=== PATIENT | female | born 1955 | race African-American/Black ===

== ENCOUNTER 2022-01-20 00:45 | Inpatient (IN) | payer MEDICARE, MEDICAID ==
[~2022-01-20] VITALS: Ht 160 cm; Wt 87.3 kg
[~2022-01-20 00:45] MED LIST: ASP81CT; CLPD75T; INSASP10V; LISI5TAB14; LSNP20T
[2022-01-20] MEDS ORDERED: morphine INJ 10 MG/ML 1ML (SYR OR VIAL) IVP STA (00:52)
[2022-01-20] MEDS ORDERED: morphine INJ 10 MG/ML 1ML (SYR OR VIAL) ONE (00:54)
[2022-01-20] MEDS ORDERED: ONDANSETRON 4 MG/2 ML (SDV) Z0FRAN ONE (00:55)
[2022-01-20] MEDS ORDERED: NS IV 1000 ML 1,000 ML IV SCH (01:00)
[2022-01-20] MEDS ORDERED: ONDANSETRON 4 MG/2 ML (SDV) Z0FRAN IVP ONE (01:00)
[2022-01-20] MEDS ORDERED: RT-ALBUTEROL/IPRATROPIUM 3 ML (DUONEB) VIAL ONE ×2 (01:02→01:17)
[2022-01-20 01:06] LABS: BASOPHILS # (AUTO) 0.1 10^3/uL (0.0-0.1); BASOPHILS % (AUTO) 1 % (0-10); EOSINOPHILS # (AUTO) 0.3 10^3/uL (0.0-0.3); EOSINOPHILS % (AUTO) 2 % (0-10); HEMATOCRIT 37 % (35-52); HEMOGLOBIN 12.4 g/dL (11.5-16.0); LYMPHOCYTES # (AUTO) 5.1 10^3/uL (1.0-4.0); LYMPHOCYTES % (AUTO) 36 % (12-44); MEAN CORPUSCULAR HEMOGLOBIN 28 pg (25-34); MEAN CORPUSCULAR HGB CONC 34 g/dL (32-36); MEAN CORPUSCULAR VOLUME 84 fL (80-99); MEAN PLATELET VOLUME 11.9 fL (9.0-12.2); MONOCYTES # (AUTO) 1.2 10^3/uL (0.0-1.0); MONOCYTES % (AUTO) 9 % (0-12); NEUTROPHILS # (AUTO) 7.2 10^3/uL (1.8-7.8); NEUTROPHILS % (AUTO) 52 % (42-75); PLATELET COUNT 246 10^3/uL (130-400)
[2022-01-20 01:19] LABS: ABG BASE EXCESS -2.3 MMOL/L (-2.5-2.5); ABG OXYGEN SATURATION 96 % (94-100); ABG PCO2 46 MMHG (35-45); ABG PO2 85 MMHG (79-93); ABG TCO2 24.5 MMOL/L (21.0-31.0)
[2022-01-20 01:20] LABS: PROTHROMBIN TIME PATIENT 13.7 SEC (12.2-14.7)
[2022-01-20 01:20] LABS: ALLENS TEST POSITIVE; INSPIRED O2 50%; PATIENT TEMP 36.4; VENTILATOR NO
[2022-01-20 01:21] LABS: ABG PH 7.32 (7.37-7.43)
[2022-01-20 01:22] LABS: ALBUMIN 4.4 GM/DL (3.2-4.5)
[2022-01-20 01:23] LABS: CHLORIDE 96 MMOL/L (98-107); POTASSIUM 4.1 MMOL/L (3.6-5.0); SODIUM 129 MMOL/L (135-145)
[2022-01-20 01:24] LABS: CALCIUM 9.1 MG/DL (8.5-10.1)
[2022-01-20 01:25] LABS: GLUCOSE 176 MG/DL (70-105); TOTAL PROTEIN 8.1 GM/DL (6.4-8.2)
[2022-01-20 01:26] LABS: CARBON DIOXIDE 19 MMOL/L (21-32)
[2022-01-20 01:27] LABS: BILIRUBIN,TOTAL 0.5 MG/DL (0.1-1.0)
[2022-01-20 01:28] LABS: ALKALINE PHOSPHATASE 140 U/L (40-136)
[2022-01-20 01:29] LABS: CREATININE SERUM 1.13 MG/DL (0.60-1.30); GFR ESTIMATED 53
[2022-01-20 01:30] LABS: BUN/CREATININE RATIO 14
[2022-01-20 01:32] LABS: ALANINE AMINOTRANSFERASE 26 U/L (0-55)
[2022-01-20 01:42] LABS: BILIRUBIN,URINE NEGATIVE (NEGATIVE); CLARITY,URINE CLEAR; COLOR,URINE YELLOW; GLUCOSE, URINE (UA) NEGATIVE (NEGATIVE); KETONES,URINE NEGATIVE (NEGATIVE); LEUKOCYTE ESTERASE ,URINE NEGATIVE (NEGATIVE); NITRITE,URINE NEGATIVE (NEGATIVE); PROTEIN,URINE 1+ (NEGATIVE)
[2022-01-20 01:48] LABS: BACTERIA,URINE NEGATIVE /HPF; RBC,URINE 0-2 /HPF; SQUAMOUS EPITHELIAL CELL,UR 0-2 /HPF; WBC,URINE 0-2 /HPF
--- NOTE | 2022-01-20 02:29 | ED Respiratory ---
General Chief Complaint: Respiratory Problems Stated Complaint: COPD,BREATHING EXACERBATION Nursing Triage Note: PATIENT ARRIVED VIA EMS IN RESPIRATORY DISTRESS. CPAP ON. Source: EMS Exam Limitations: clinical condition History of Present Illness Date Seen by Provider: Jan 20, 2022 Time Seen by Provider: 00:47 Initial Comments Patient is a 66-year-old female who presents to the emergency department by ambulance chief complaint of sudden onset respiratory distress. Patient has a history of diabetes with an insulin pump. She has a history of COPD as related by the medics. Patient is having a difficult time providing a history secondary to her profound respiratory distress. She is on CPAP on arrival. She was given a DuoNeb prior to arrival. IV access had not been established. She was able to deny chest pain. HPI, review of systems, past medical family and social history unobtainable secondary to her distress. Patient was quickly changed over to anoxia mask and was actually maintaining good oxygen saturations in the upper 90s. Quite tachycardic in the 150s/160s. Blood pressure quite hypertensive with a diastolic in the 115 range. She was in so much distress that she was having a difficult time finding a comfortable position to be able to breathe. 4 mg of morphine was given for air hunger and to calm her down with a little bit of Zofran, 4 mg. No recent fevers. Patient states her allergies are in the record. Timing/Duration: just prior to arrival Severity: severe Prior Episodes/Possible Cause: occasional episodes Modifying Factors: Improves With Albuterol Nebulizer Associated Symptoms: No chest pain/soreness; cough, shortness of breath, wheezing Allergies and Home Medications Allergies Coded Allergies: Sulfa (Sulfonamide Antibiotics) (Verified Allergy, Unknown, 04/20/07) doxycycline (Verified Allergy, Unknown, 03/02/08) latex (Verified Allergy, Unknown, 04/20/07) peanut (Unverified Allergy, Unknown, 01/21/22) Uncoded Allergies: multiple antibiotics (Allergy, Mild, 11/12/09) peanut butter (Allergy, Mild, 11/12/09) Patient Home Medication List Home Medication List Reviewed: Yes Clopidogrel Bisulfate (Clopidogrel) 75 Mg Tablet, 75 MG PO 1200, (Reported) Entered as Reported by: IVONE CERVANTES on 01/20/22 1004 Last Action: Reviewed Furosemide (Furosemide) 20 Mg Tablet, 20 MG PO DAILY, (Reported) Entered as Reported by: IVONE CERVANTES on 01/22/22 112 Insulin Aspart (Novolog) 100 Unit/Ml Susp, UNITS SC PER PUMP, (Reported) Entered as Reported by: IVONE CERVANTES on 01/20/22 100 Last Action: Reviewed Lisinopril (Lisinopril) 30 Mg Tablet, 30 MG PO 1200, (Reported) Entered as Reported by: IVONE CERVANTES on 01/20/22 100 Last Action: Reviewed Metoprolol Succinate (Metoprolol Succinate) 25 Mg Tab.er.24h, 25 MG PO DAILY, (Reported) Entered as Reported by: IVONE CERVANTES on 01/22/22 112 Spironolactone (Spironolactone) 25 Mg Tablet, 25 MG PO Q48H, (Reported) Entered as Reported by: IVONE CERVANTES on 01/22/221124 Trolamine Salicylate (Aspercreme) 10 % Cream..g., 1 APPLIC TP UD PRN for PAIN-B REAKTHROUGH, (Reported) Entered as Reported by: IVONE CERVANTES on 01/20/22 100 Last Action: Reviewed Discontinued Medications Aspirin (Aspirin) 81 Mg Tablet, (Reported) Discontinued Reason: No Longer Taking Entered as Reported by: JULI GOMEZ on 03/03/08300 Last Action: Discontinued Clopidogrel (Plavix) 75 Mg Tablet, (Reported) Discontinued Reason: No Longer Taking Entered as Reported by: JULI GOMEZ on 03/03/08 030 Last Action: Discontinued Furosemide (Furosemide) 20 Mg Tablet, 20 MG PO DAILY Discontinued Reason: Duplicate Order Prescribed by: PATRICK HAUSER on 01/21/22 1145 Insulin Aspart (Novolog) 10 Unit/0.1 Ml Vial, (Reported) Discontinued Reason: No Longer Taking Entered as Reported by: BLAIR GAO on 04/20/07 1034 Last Action: Discontinued Lisinopril (Zestrtil 20 Mg) 20 Mg Tablet, (Reported) Discontinued Reason: No Longer Taking Entered as Reported by: JULI GOMEZ on 03/03/08 030 Last Action: Discontinued Metoprolol Succinate (Metoprolol Succinate) 25 Mg Tab.er.24h, 25 MG PO DAILY Discontinued Reason: Duplicate Order Prescribed by: PATRICK HAUSER on 01/21/22 1145 Spironolactone (Aldactone) 25 Mg Tablet, 25 MG PO Every other day Discontinued Reason: Duplicate Order Prescribed by: RITIKA AYALA on 01/21/22 4142 Review of Systems Review of Systems Constitutional: see HPI Respiratory: cough, short of breath Cardiovascular: no symptoms reported Gastrointestinal: no symptoms reported Genitourinary: no symptoms reported Musculoskeletal: no symptoms reported Skin: no symptoms reported Psychiatric/Neurological: Anxiety All Other Systems Reviewed Negative Unless Noted: Yes Past Fefaxrp-Rilhop-Dkpnuc Hx Past Medical History Reproductive Disorders: Yes (6 MISCARRIAGES, 4 LIVE BIRTHS) Physical Exam Vital Signs - First Documented 01/20/22 01/20/22 00:47 00:55 Temp 36.4 Pulse 154 Resp 45 B/P (MAP) 179/103 (128) Pulse Ox 100 O2 Delivery NIV CPAP FiO2 50 Capillary Refill : Height: '" Weight: lbs. oz. kg; 30.00 BMI Method: General Appearance: WD/WN, severe distress Eyes: Bilateral Eye Normal Inspection, Bilateral Eye PERRL, Bilateral Eye EOMI HEENT: PERRL/EOMI Neck: normal inspection Respiratory: respiratory distress, accessory muscle use, rales, wheezing Cardiovascular: regular rate, rhythm, tachycardia (150s) Gastrointestinal: non tender, soft Extremities: normal range of motion, non-tender, normal inspection, no pedal edema, no calf tenderness, normal capillary refill Neurologic/Psychiatric: alert, oriented x 3 Skin: normal color, warm/dry Focused Exam Lactate Level 01/20/22 01:22: Lactic Acid Level 1.06 Lactic Acid Level Laboratory Tests Test 01/20/22 01:22 Lactic Acid Level 1.06 MMOL/L (0.50-2.00) Progress/Results/Core Measures Suspected Sepsis SIRS Temperature: Pulse: 154 Respiratory Rate: 45 Laboratory Tests 01/20/22 00:59: White Blood Count 14.0H Blood Pressure 179 /103 Mean: 128 01/20/22 01:22: Lactic Acid Level 1.06 Laboratory Tests 01/20/22 00:59: Creatinine 1.13, INR Comment 1.0, Platelet Count 246, Total Bilirubin 0.5 Results/Orders Lab Results Laboratory Tests Test 01/20/22 00:59 01/20/22 01:08 01/20/22 01:12 01/20/22 01:22 Range/Units White Blood Count 14.0 H 4.3-11.0 10^3/uL Red Blood Count 4.38 3.80-5.11 10^6/uL Hemoglobin 12.4 11.5-16.0 g/dL Hematocrit 37 35-52 % Mean Corpuscular Volume 84 80-99 fL Mean Corpuscular Hemoglobin 28 25-34 pg Mean Corpuscular Hemoglobin Concent 34 32-36 g/dL Red Cell Distribution Width 13.8 10.0-14.5 % Platelet Count 246 130-400 10^3/uL Mean Platelet Volume 11.9 9.0-12.2 fL Immature Granulocyte % (Auto) 0 % Neutrophils (%) (Auto) 52 42-75 % Lymphocytes (%) (Auto) 36 12-44 % Monocytes (%) (Auto) 9 0-12 % Eosinophils (%) (Auto) 2 0-10 % Basophils (%) (Auto) 1 0-10 % Neutrophils # (Auto) 7.2 1.8-7.8 10^3/uL Lymphocytes # (Auto) 5.1 H 1.0-4.0 10^3/uL Monocytes # (Auto) 1.2 H 0.0-1.0 10^3/uL Eosinophils # (Auto) 0.3 0.0-0.3 10^3/uL Basophils # (Auto) 0.1 0.0-0.1 10^3/uL Immature Granulocyte # (Auto) 0.0 0.0-0.1 10^3/uL Prothrombin Time 13.7 12.2-14.7 SEC INR Comment 1.0 0.8-1.4 Activated Partial Thromboplast Time 37 H 24-35 SEC D-Dimer 1.14 H 0.00-0.49 UG/ML Sodium Level 129 L 135-145 MMOL/L Potassium Level 4.1 3.6-5.0 MMOL/L Chloride Level 96 L 98-107 MMOL/L Carbon Dioxide Level 19 L 21-32 MMOL/L Anion Gap 14 5-14 MMOL/L Blood Urea Nitrogen 16 7-18 MG/DL Creatinine 1.13 0.60-1.30 MG/DL Estimat Glomerular Filtration Rate 53 BUN/Creatinine Ratio 14 Glucose Level 176 H 70-105 MG/DL Calcium Level 9.1 8.5-10.1 MG/DL Corrected Calcium 8.8 8.5-10.1 MG/DL Total Bilirubin 0.5 0.1-1.0 MG/DL Aspartate Amino Transf (AST/SGOT) 28 5-34 U/L Alanine Aminotransferase (ALT/SGPT) 26 0-55 U/L Alkaline Phosphatase 140 H 40-136 U/L Troponin I < 0.028 <0.028 NG/ML B-Type Natriuretic Peptide 463.1 H <100.0 PG/ML Total Protein 8.1 6.4-8.2 GM/DL Albumin 4.4 3.2-4.5 GM/DL Influenza Type A (RT-PCR) Not Detected Not Detecte Influenza Type B (RT-PCR) Not Detected Not Detecte SARS-CoV-2 RNA (RT-PCR) Not Detected Not Detecte Blood Gas Puncture Site LEFT RADIAL Blood Gas Patient Temperature 36.4 Arterial Blood pH 7.32 *L 7.37-7.43 Arterial Blood Partial Pressure CO2 46 H 35-45 MMHG Arterial Blood Partial Pressure O2 85 79-93 MMHG Arterial Blood HCO3 23 23-27 MMOL/L Arterial Blood Total CO2 24.5 21.0-31.0 MMOL/L Arterial Blood Oxygen Saturation 96 94-100 % Arterial Blood Base Excess -2.3 -2.5-2.5 MMOL/L Niraj Test POSITIVE Blood Gas Ventilator Setting NO Blood Gas Inspired Oxygen 50% Lactic Acid Level 1.06 0.50-2.00 MMOL/L Test 01/20/22 01:34 Range/Units Urine Color YELLOW Urine Clarity CLEAR Urine pH 7.0 5-9 Urine Specific [place] 1.010 L 1.016-1.022 Urine Protein 1+ H NEGATIVE Urine Glucose (UA) NEGATIVE NEGATIVE Urine Ketones NEGATIVE NEGATIVE Urine Nitrite NEGATIVE NEGATIVE Urine Bilirubin NEGATIVE NEGATIVE Urine Urobilinogen 0.2 < = 1.0 MG/DL Urine Leukocyte Esterase NEGATIVE NEGATIVE Urine RBC (Auto) TRACE-I H NEGATIVE Urine RBC 0-2 /HPF Urine WBC 0-2 /HPF Urine Squamous Epithelial Cells 0-2 /HPF Urine Crystals NONE /LPF Urine Bacteria NEGATIVE /HPF Urine Casts NONE /LPF Urine Mucus NEGATIVE /LPF Urine Culture Indicated CULTURE PENDING Micro Results Microbiology 01/20/22 Urine Culture - Final, Complete NO GROWTH 01/20/22 Blood Culture - Preliminary, Resulted No growth 01/20/22 Blood Culture - Preliminary, Resulted No growth My Orders Orders - MARINA RENTERIA MD Morphine Injection (Morphine Injection (01/20/22 00:52) Ondansetron Injection (Zofran Injectio (01/20/22 01:00) Ns Iv 1000 Ml (Sodium Chloride 0.9%) (01/20/22 01:00) Cbc With Automated Diff (01/20/22 00:53) Comprehensive Metabolic Panel (01/20/22 00:53) Blood Culture (01/20/22 00:53) Urinalysis (01/20/22 00:53) Urine Culture (01/20/22 00:53) Protime With Inr (01/20/22 00:53) Partial Thromboplastin Time (01/20/22 00:53) Chest 1 View, Ap/Pa Only (01/20/22 00:53) Ed Iv/Invasive Line Start (01/20/22 00:53) Ed Iv/Invasive Line Start (01/20/22 00:53) Troponin I Lindsay (01/20/22 00:53) Vital Signs Adult Sepsis Patie Q15M (01/20/22 00:53) O2 (01/20/22 00:53) Lactic Acid Analyzer (01/20/22 00:53) Influenza A And B By Pcr (01/20/22 00:53) Covid 19 Inhouse Test (01/20/22 00:53) Arterial Blood Gas (01/20/22 00:53) Morphine Injection (Morphine Injection (01/20/22 00:54) Ondansetron Injection (Zofran Injectio (01/20/22 00:55) Albuterol/Ipra Inhalation Soln (Duoneb I (01/20/22 01:02) Albuterol/Ipra Inhalation Soln (Duoneb I (01/20/22 01:17) Bnp [place] (01/20/22 01:49) Fibrin Degradation Products (01/20/22 01:49) Furosemide Injection (Lasix Injection) (01/20/22 02:45) Arterial Blood Draw - Obtain (01/20/22 01:12) Medications Given in ED Vital Signs/I&O 01/20/22 01/20/22 01/20/22 00:47 00:55 00:55 Temp 36.4 Pulse 154 Resp 45 B/P (MAP) 179/103 (128) Pulse Ox 100 100 O2 Delivery NIV CPAP NIV CPAP NIV Bilevel FiO2 50 Capillary Refill : Blood Pressure Mean: 128 Progress Note : Time: 02:12 Progress Note Multiple reassessments over the last hour and a half revealed the patient to be steadily improving. She was given 3 uoga-[id number]-ywrl albuterol treatments. She is no longer wheezing. Respirations are much improved, respiratory rate in the mid 20s. Oxygen saturations on BiPAP currently 100%. Heart rate down into the low 120s upper 115 range. She is alert and able to tell me that her symptoms just hit her all at once this evening. She states when she would lay down she would hear "a rattling", do a breathing treatment and then lay back down and experience rattling again. She states that it just suddenly hit her this evening where she needed to call the ambulance. Patient tells me over the last 3 months she has had a couple rounds of antibiotics for bronchitis and pneumonia. She states she just cannot quite kick the cough and congestion. No history of blood clots. She is on Plavix for "mini strokes" in the past. No history of heart disease or stent placement. She does not recall ever having had a stress test in the past. She does still smoke "some" ECG Initial ECG Impression Date: Jan 20, 2022 Initial ECG Impression Time: 01:33 Initial ECG Rhythm: S.Tach Initial ECG Intervals OR interval 150 QRS 75 QTC 501 Comment No ectopy, no ST segment depression or elevation noted Diagnostic Imaging Diagonstic Imaging: Xray Plain Films/CT/US/NM/MRI: chest Comments Chest x-ray interpreted by me, pulmonary edema no obvious infiltrate Critical Care Note Critical Care Start Time: 00:47 Stop Time: 02:36 Total Time (minutes) 1 hour critical care time in the evaluation and management of this patient in respiratory distress. Time includes initial evaluation and management, respiratory support placed on BiPAP, medications for anxiety, review of the medical record. Reviewed and interpretation of labs, imaging and EKG. Discussion with admitting provider. Departure Communication (Admissions) Time/Spoke to Admitting Phy: 02:[address] Jules - accepts patient for admission Impression Primary Impression: Flash pulmonary edema Additional Impressions: COPD (chronic obstructive pulmonary disease) Qualified Codes: J44.1 - Chronic obstructive pulmonary disease with (acute) exacerbation Hypertension Qualified Codes: I10 - Essential (primary) hypertension Disposition: ADMITTED INPATIENT Condition: Stable Admissions Decision to Admit Reason: Admit from ER (General) Decision to Admit/Date: Jan 20, 2022 Time/Decision to Admit Time: 02:36 Departure-Patient Inst. Referrals: CATRACHITO CAGLE DO (PCP/Family) Primary Care Physician MRAINA RENTERIA MD Jan 20, 2022 02:29
[2022-01-20] MEDS ORDERED: FUROSEMIDE 40 MG/4 ML INJ (LASIX) IVP ONE (02:45)
--- NOTE | 2022-01-20 05:09 | Tele-ICU Progress Note ---
Progress Note 66 y/o with DM2 on Insulin pump, HTN , COPD came in with SOB, placed on CPAP and Duo nebs given. CXR with chf patten and COPD changes. Labs, imaging and medications reviewed. 1. Mild Ac exacerbation of COPD with acute hypoxic resp gailure, weaning O2, 2. CHF / flash pulm edema, Troponin negative, continue to trend, 3. Uncontrolled HTN. Lasix , DUO nebs given. Diuresed 1 L and oxygenation improved. Pt resting well, Hemodynamically stable. D/W the bedside nurse. No request for any orders at this time. Interventions Minor- Focused Exam Lactate Level 01/20/22 01:22: Lactic Acid Level 1.06 Height, Weight, BMI Height: '" Weight: lbs. oz. kg; 33.20 BMI Method: Lactic Acid Level Laboratory Tests Test 01/20/22 01:22 Lactic Acid Level 1.06 MMOL/L (0.50-2.00) DEANN MURPHY MD Jan 20, 2022 05:09
--- NOTE | 2022-01-20 05:44 | Diagnostic Imaging Report ---
INDICATION: Respiratory distress. COMPARISON: 08/07/2009 FINDINGS: Single frontal radiographic view of the chest was obtained and demonstrates borderline enlargement of the cardiac silhouette. There is also pulmonary vascular congestion and diffuse prominence of pulmonary interstitium. Uvaldo B-lines are noted. There is no large effusion or pneumothorax. Osseous structures show no gross acute abnormalities. IMPRESSION: 1. New diffuse bilateral interstitial prominence, which is favored to represent pulmonary edema. Viral or atypical infiltrate is also consideration, but felt to be less likely. Dictated by: Dictated on workstation # [id number]
[2022-01-20] MEDS ORDERED: RT-ALBUTEROL/IPRATROPIUM 3 ML (DUONEB) VIAL INH PRN (05:45)
[2022-01-20 05:59] LABS: BASOPHILS % (AUTO) 0 % (0-10); EOSINOPHILS % (AUTO) 0 % (0-10); HEMATOCRIT 32 % (35-52); HEMOGLOBIN 10.7 g/dL (11.5-16.0); LYMPHOCYTES # (AUTO) 0.9 10^3/uL (1.0-4.0); LYMPHOCYTES % (AUTO) 6 % (12-44); MEAN CORPUSCULAR HEMOGLOBIN 29 pg (25-34); MEAN CORPUSCULAR HGB CONC 34 g/dL (32-36); MEAN CORPUSCULAR VOLUME 84 fL (80-99); MEAN PLATELET VOLUME 12.9 fL (9.0-12.2); MONOCYTES # (AUTO) 0.7 10^3/uL (0.0-1.0); MONOCYTES % (AUTO) 5 % (0-12); NEUTROPHILS # (AUTO) 13.1 10^3/uL (1.8-7.8); NEUTROPHILS % (AUTO) 89 % (42-75); PLATELET COUNT 193 10^3/uL (130-400); WHITE BLOOD COUNT 14.8 10^3/uL (4.3-11.0)
[2022-01-20] MEDS: inSUlin ASPART (NovoLOG) 1 UNIT/0.01 ML (CHARGE PER UNIT) SC SCH ×5 (05:59→21:19)
[2022-01-20] MEDS: CATHETER FLUSH 10 ML SYR IVP SCH ×3 (06:00→23:47)
[2022-01-20 06:25] LABS: CALCIUM 8.2 MG/DL (8.5-10.1); POTASSIUM 3.7 MMOL/L (3.6-5.0)
[2022-01-20 06:33] LABS: BAND NEUTROPHILS 1 %; LYMPHOCYTES % (MANUAL) 9 %; MONOCYTES % (MANUAL) 5 %; NEUTROPHILS % (MANUAL) 85 %; RBC MORPH NORMAL
[2022-01-20] MEDS: RT-ALBUTEROL/IPRATROPIUM 3 ML (DUONEB) VIAL INH SCH ×5 (07:13→22:23)
[2022-01-20] MEDS ORDERED: FUROSEMIDE 40 MG/4 ML INJ (LASIX) IV NR (08:00)
--- NOTE | 2022-01-20 08:36 | Consultation-Cardiology ---
HPI-Cardiology Cardiology Consultation: Date of Consultation 01/20/22 Time Seen by a Provider: 08:30 Date of Admission 01-19-22 Attending Physician Therese Jules MD Admitting Physician Bronwyn Bailey DO Consulting Physician Elia Bravo MD HPI: Chief Complaint: CHF Ms. Velázquez is a 66 yr old female admitted to ICU 7 with increasing SOB over the last few days which became increasingly worse overnight. She reports symptoms of orthopnea. She reports ankle swelling of new onset. She denies any c/o CP or palpitations. No c/o syncope or near syncope. She reports she follow s with Dr. Fallon of cardiology services at [facility] in [place], [place]. She denies any n/v/d. No c/o fever or chills. She reports recent URI for which she has been following with [facility]. She continues to smoke cigs 1/2 PPD. She reports her SOB is improved. Review of Systems-Cardiology Review of Systems Constitutional: No chills, No fever, No malaise Eyes: No vision change Ears/Nose/Throat: No epistaxis, No recent hearing loss Respiratory: As described under HPI Cardiovascular: As described under HPI Gastrointestinal: No constipation, No diarrhea, No nausea, No vomiting Genitourinary: No dysuria Musculoskeletal: no symptoms reported Skin: No rash on exposed areas, No ulcerations on exposed areas Psychiatric/Neurological: anxiety; No seizure, No focal weakness, No syncope Hematologic: No bleeding abnormalities All Other Systems Reviewed Negative Unless Noted: Yes VRP-Jguqfj-Olpxes Hx Patient Social History Smoking Status: Current Everyday Smoker Have you traveled recently?: No Alcohol Use?: No Pt feels they are or have been: No Tobacco type used: Cigarettes Past Medical History PMH As described under Assessment. Family Medical History Family Medical History: She reports her mother had h/o CAD with [place]. Allergies and Home Medications Allergies Coded Allergies: Sulfa (Sulfonamide Antibiotics) (Verified Allergy, Unknown, 04/20/07) doxycycline (Verified Allergy, Unknown, 03/02/08) latex (Verified Allergy, Unknown, 04/20/07) Uncoded Allergies: multiple antibiotics (Allergy, Mild, 11/12/09) peanut butter (Allergy, Mild, 11/12/09) Patient Home Medication List Clopidogrel Bisulfate (Clopidogrel) 75 Mg Tablet, 75 MG PO 1200, (Reported) Entered as Reported by: IVONE CERVANTES on 01/20/22 100 Last Action: Reviewed Insulin Aspart (Novolog) 100 Unit/Ml Susp, UNITS SC PER PUMP, (Reported) Entered as Reported by: IVONE CERVANTES on 01/20/221003 Last Action: Reviewed Lisinopril (Lisinopril) 30 Mg Tablet, 30 MG PO 1200, (Reported) Entered as Reported by: IVONE CERVANTES on 01/20/221003 Last Action: Reviewed Trolamine Salicylate (Aspercreme) 10 % Cream..g., 1 APPLIC TP UD PRN for PAIN- BREAKTHROUGH, (Reported) Entered as Reported by: IVONE CERVANTES on 01/20/221003 Last Action: Reviewed Discontinued Medications Aspirin (Aspirin) 81 Mg Tablet, (Reported) Discontinued Reason: No Longer Taking Entered as Reported by: JULI GOMEZ on 03/03/08300 Last Action: Discontinued Clopidogrel (Plavix) 75 Mg Tablet, (Reported) Discontinued Reason: No Longer Taking Entered as Reported by: JULI GOMEZ on 03/03/08300 Last Action: Discontinued Insulin Aspart (Novolog) 10 Unit/0.1 Ml Vial, (Reported) Discontinued Reason: No Longer Taking Entered as Reported by: BLAIR GAO on 04/20/07 1034 Last Action: Discontinued Lisinopril (Zestrtil 20 Mg) 20 Mg Tablet, (Reported) Discontinued Reason: No Longer Taking Entered as Reported by: JULI GOMEZ on 03/03/08300 Last Action: Discontinued Physical Exam-Cardiology Physical Exam Vital Signs/I&O 01/20/22 01/20/22 01/20/22 01/20/22 03:09 03:25 03:30 03:44 Temp 36.3 Pulse 118 123 125 126 Resp 29 19 28 B/P (MAP) 162/80 160/96 Pulse Ox 97 100 100 O2 Delivery NIV Bilevel NIV Bilevel O2 Flow Rate 50.00 40.00 40.00 01/20/22 01/20/22 01/20/22 01/20/22 03:45 04:00 04:12 04:15 Temp 36.9 Pulse 120 112 122 Resp 16 18 16 B/P (MAP) 160/96 130/86 141/69 Pulse Ox 100 100 100 99 O2 Delivery NIV Bilevel Vapotherm Vapotherm Vapotherm O2 Flow Rate 40.00 15.00 15.00 15.00 35.00 35.00 FiO2 35 01/20/22 01/20/22 01/20/22 01/20/22 04:45 05:15 05:25 06:00 Temp 36.4 Pulse 125 120 154 111 Resp 15 19 28 B/P (MAP) 147/84 138/70 122/67 Pulse Ox 99 99 100 97 O2 Delivery Vapotherm Vapotherm Vapotherm O2 Flow Rate 15.00 15.00 15.00 35.00 35.00 35.00 FiO2 50 01/20/22 01/20/22 01/20/22 01/20/22 07:00 07:13 07:56 08:00 Temp 36.8 Pulse 122 116 Resp 18 B/P (MAP) 135/74 Pulse Ox 99 99 O2 Delivery Vapotherm High Flow N/C O2 Flow Rate 15.00 2.00 35.00 01/20/22 01/20/22 01/20/22 01/20/22 08:00 08:48 09:00 10:00 Pulse 115 122 113 Resp 19 15 17 B/P (MAP) 132/66 151/82 155/66 Pulse Ox 98 94 99 99 O2 Delivery Vapotherm Nasal Cannula Vapotherm Vapotherm O2 Flow Rate 15.00 2.00 15.00 15.00 35.00 35.00 35.00 01/20/22 01/20/22 01/20/22 01/20/22 10:26 11:00 12:00 12:00 Temp 36.7 Pulse 108 108 Resp 10 11 B/P (MAP) 135/74 124/99 Pulse Ox 99 99 99 O2 Delivery High Flow N/C Vapotherm Vapotherm O2 Flow Rate 2.00 15.00 15.00 35.00 35.00 01/20/22 01/20/22 01/20/22 01/20/22 12:18 12:52 13:00 13:52 Pulse 116 112 Resp 15 B/P (MAP) 115/52 Pulse Ox 94 98 99 O2 Delivery Nasal Cannula Vapotherm High Flow N/C O2 Flow Rate 2.00 15.00 2.00 35.00 Capillary Refill : Constitutional: AAO x 3, well-developed, well-nourished HEENT: PERRL, hearing is well preserved, oral hygience is good Neck: No carotid bruit; carotid pulses are 2 + bilaterally Respiratory: No accessory muscle use, No respiratory distress; chest expansion is symmetric, chest is bilaterally symmetric, other (coarse breath sounds bilat with exp wheezes) Cardiovascular: tachycardia, systolic murmur Gastrointestinal: No tender; soft, round, audible bowel sounds Extremities: other (mild bilat LE swelling) Neurologic/Psychiatric: grossly intact (moves all extremities) Skin: No rash on exposed areas, No ulcerations on exposed areas Data Review Labs Laboratory Tests 01/20/22 00:59: White Blood Count 14.0H, Red Blood Count 4.38, Hemoglobin 12.4, Hematocrit 37, Mean Corpuscular Volume 84, Mean Corpuscular Hemoglobin 28, Mean Corpuscular Hemoglobin Concent 34, Red Cell Distribution Width 13.8, Platelet Count 246, Mean Platelet Volume 11.9, Immature Granulocyte % (Auto) 0, Neutrophils (%) (Auto) 52, Lymphocytes (%) (Auto) 36, Monocytes (%) (Auto) 9, Eosinophils (%) (Auto) 2, Basophils (%) (Auto) 1, Neutrophils # (Auto) 7.2, Lymphocytes # (Auto) 5.1H, Monocytes # (Auto) 1.2H, Eosinophils # (Auto) 0.3, Basophils # (Auto) 0.1, Immature Granulocyte # (Auto) 0.0, Prothrombin Time 13.7, INR Comment 1.0, Activated Partial Thromboplast Time 37H, D-Dimer 1.14H, Sodium Level 129L, Potassium Level 4.1, Chloride Level 96L, Carbon Dioxide Level 19L, Anion Gap 14, Blood Urea Nitrogen 16, Creatinine 1.13, Estimat Glomerular Filtration Rate 53, BUN/Creatinine Ratio 14, Glucose Level 176H, Calcium Level 9.1, Corrected Calcium 8.8, Total Bilirubin 0.5, Aspartate Amino Transf (AST/SGOT) 28, Alanine Aminotransferase (ALT/SGPT) 26, Alkaline Phosphatase 140H, Troponin I < 0.028, B-Type Natriuretic Peptide 463.1H, Total Protein 8.1, Albumin 4.4 01/20/22 01:08: Influenza Type A (RT-PCR) Not Detected, Influenza Type B (RT-PCR) Not Detected, SARS-CoV-2 RNA (RT-PCR) Not Detected 01/20/22 01:12: Blood Gas Puncture Site LEFT RADIAL, Blood Gas Patient Temperature 36.4, Arterial Blood pH 7.32*L, Arterial Blood Partial Pressure CO2 46H, Arterial Blood Partial Pressure O2 85, Arterial Blood HCO3 23, Arterial Blood Total CO2 24.5, Arterial Blood Oxygen Saturation 96, Arterial Blood Base Excess -2.3, Niraj Test POSITIVE, Blood Gas Ventilator Setting NO, Blood Gas Inspired Oxygen 50% 01/20/22 01:22: Lactic Acid Level 1.06 01/20/22 01:34: Urine Color YELLOW, Urine Clarity CLEAR, Urine pH 7.0, Urine Specific [place] 1.010L, Urine Protein 1+H, Urine Glucose (UA) NEGATIVE, Urine Ketones NEGATIVE, Urine Nitrite NEGATIVE, Urine Bilirubin NEGATIVE, Urine Urobilinogen 0.2, Urine Leukocyte Esterase NEGATIVE, Urine RBC (Auto) TRACE-IH, Urine RBC 0-2, Urine WBC 0-2, Urine Squamous Epithelial Cells 0-2, Urine Crystals NONE, Urine Bacteria NEGATIVE, Urine Casts NONE, Urine Mucus NEGATIVE, Urine Culture Indicated C ULTURE PENDING 01/20/22 05:14: Thyroid Stimulating Hormone (TSH) 1.84 01/20/22 05:50: White Blood Count 14.8H, Red Blood Count 3.76L, Hemoglobin 10.7L, Hematocrit 32L , Mean Corpuscular Volume 84, Mean Corpuscular Hemoglobin 29, Mean Corpuscular Hemoglobin Concent 34, Red Cell Distribution Width 13.6, Platelet Count 193, Mean Platelet Volume 12.9H, Immature Granulocyte % (Auto) 1, Neutrophils (%) (Auto) 89H, Lymphocytes (%) (Auto) 6L, Monocytes (%) (Auto) 5, Eosinophils (%) (Auto) 0, Basophils (%) (Auto) 0, Neutrophils # (Auto) 13.1H, Lymphocytes # (Auto) 0.9L, Monocytes # (Auto) 0.7, Eosinophils # (Auto) 0.0, Basophils # (Auto) 0.0, Immature Granulocyte # (Auto) 0.1, Neutrophils % (Manual) 85, Lymphocytes % (Manual) 9, Monocytes % (Manual) 5, Band Neutrophils 1, Blood Morphology Comment NORMAL, Sodium Level 131L, Potassium Level 3.7, Chloride Level 95L, Carbon Dioxide Level 18L, Anion Gap 18H, Blood Urea Nitrogen 16, Creatinine 1.00, Estimat Glomerular Filtration Rate 61, BUN/Creatinine Ratio 16, Glucose Level 224H, Calcium Level 8.2L 01/20/22 11:06: Glucometer 223H 01/20/22 12:43: Glucometer 227H Microbiology 01/20/22 Blood Culture - Preliminary, Resulted No growth Radiology NAME: RAUDEL VELÁZQUEZ MED REC#: [id number] PT STATUS: ADM IN : 1955 PHYSICIAN: MARINA RENTERIA MD ADMIT DATE: 01/20/22/ICU Draft Date of Exam:01/20/22 CHEST 1 VIEW, AP/PA ONLY INDICATION: Respiratory distress. COMPARISON: 08/07/2009 FINDINGS: Single frontal radiographic view of the chest was obtained and demonstrates borderline enlargement of the cardiac silhouette. There is also pulmonary vascular congestion and diffuse prominence of pulmonary interstitium. Uvaldo B-lines are noted. There is no large effusion or pneumothorax. Osseous structures show no gross acute abnormalities. IMPRESSION: 1. New diffuse bilateral interstitial prominence, which is favored to represent pulmonary edema. Viral or atypical infiltrate is also consideration, but felt to be less likely. Dictated on workstation # [id number] Dict: 01/20/22 0540 Trans: 01/20/22 0544 [id number] Interpreted by: DEMETRIUS HUIZAR MD Electronically signed by: ECG Impression ECG Initial ECG Rhythm: S.Tach A/P-Cardiology Assessment/Admission Diagnosis CHF - duration unknown Sinus tachycardia - undetermined etiology Hyponatremia - unclear etiology - possibly secondary to CHF Leukocytosis - undetermined etiology - medical services managing Reports h/o murmur - details unknown H/O TIA vs CVA per pt report - details unknown H/O left sided carotid dz per pt report - followed by [facility] HTN HLD - intolerant to statins per pt report IDDM - insulin pump Discussion and Recomendations CHF of undetermined length of time - Echocardiogram today - Diuretics Request records from [facility] Continue home medications Sinus tachycardia of unclear etiology - start low dose BB Reports h/o carotid dz with CVA vs TIA - restart home dose of Plavix Monitor labs closely - replace electrolytes as indicated We would like to thank medical services for this consult VIRGINIA MUNOZ Jan 20, 2022 08:36
[2022-01-20] MEDS: CLOPIDOGREL 75 MG (PLAVIX) TABLET PO SCH (08:47)
[2022-01-20] MEDS: lisINopril 20 MG (PRINIVIL) TABLET PO SCH (08:47)
[2022-01-20] MEDS: ASPIRIN E.C. 81 MG (ECOTRIN) TAB PO SCH (08:47)
[2022-01-20] MEDS ORDERED: INSU100V16 SC (10:04)
[2022-01-20] MEDS ORDERED: TROL85CR37 TP (10:04)
[2022-01-20] MEDS ORDERED: LISI30TA5 PO (10:04)
[2022-01-20] MEDS ORDERED: CLOP75TA28 PO (10:04)
--- NOTE | 2022-01-20 12:19 | Consultation-Cardiology ---
HPI-Cardiology Cardiology Consultation: Date of Consultation 01/20/22 Time Seen by a Provider: 09:00 Date of Admission Attending Physician Therese Jules MD Admitting Physician Bronwyn Bailey DO Consulting Physician CARLOS POZO MD, MA, FACP, FACC, FSCAI, CCDS HPI: Chief Complaint: CHF Ms. Pritchard is a 66 yr old female admitted to ICU 7 with increasing SOB over the last few days which became increasingly worse overnight. She reports symptoms of orthopnea. She reports ankle swelling of new onset. She denies any c/o CP or palpitations. No c/o syncope or near syncope. She reports she follows with Dr. Fallon of cardiology services at [facility] in [place], [place]. She denies any n/v/d. No c/o fever or chills. She reports recent URI for which she has been following with [facility]. She continues to smoke cigs 1/2 PPD. She reports her SOB is improved. Review of Systems-Cardiology Review of Systems Constitutional: No chills, No fever, No malaise Eyes: No vision change Ears/Nose/Throat: No epistaxis, No recent hearing loss Respiratory: As described under HPI Cardiovascular: As described under HPI Gastrointestinal: No constipation, No diarrhea, No nausea, No vomiting Genitourinary: No dysuria Musculoskeletal: no symptoms reported Skin: No rash on exposed areas, No ulcerations on exposed areas Psychiatric/Neurological: anxiety; No seizure, No focal weakness, No syncope Hematologic: No bleeding abnormalities All Other Systems Reviewed Negative Unless Noted: Yes [id number] Hx Patient Social History Smoking Status: Current Everyday Smoker Have you traveled recently?: No Alcohol Use?: No Pt feels they are or have been: No Tobacco type used: Cigarettes Past Medical History PMH As described under Assessment. Family Medical History Family Medical History: She reports her mother had h/o CAD with [place]. Allergies and Home Medications Allergies Coded Allergies: Sulfa (Sulfonamide Antibiotics) (Verified Allergy, Unknown, 04/20/07) doxycycline (Verified Allergy, Unknown, 03/02/08) latex (Verified Allergy, Unknown, 04/20/07) Uncoded Allergies: multiple antibiotics (Allergy, Mild, 11/12/09) peanut butter (Allergy, Mild, 11/12/09) Patient Home Medication List Home Medication List Reviewed: Yes Clopidogrel Bisulfate (Clopidogrel) 75 Mg Tablet, 75 MG PO 1200, (Reported) Entered as Reported by: IVONE CERVANTES on 01/20/221003 Last Action: Reviewed Insulin Aspart (Novolog) 100 Unit/Ml Susp, UNITS SC PER PUMP, (Reported) Entered as Reported by: IVONE CERVANTES on 01/20/221003 Last Action: Reviewed Lisinopril (Lisinopril) 30 Mg Tablet, 30 MG PO 1200, (Reported) Entered as Reported by: IVONE CERVANTES on 01/20/221003 Last Action: Reviewed Trolamine Salicylate (Aspercreme) 10 % Cream..g., 1 APPLIC TP UD PRN for PAIN- BREAKTHROUGH, (Reported) Entered as Reported by: IVONE CERVANTES on 01/20/221003 Last Action: Reviewed Discontinued Medications Aspirin (Aspirin) 81 Mg Tablet, (Reported) Discontinued Reason: No Longer Taking Entered as Reported by: JULI GOMEZ on 03/03/08300 Last Action: Discontinued Clopidogrel (Plavix) 75 Mg Tablet, (Reported) Discontinued Reason: No Longer Taking Entered as Reported by: JULI GOMEZ on 03/03/08300 Last Action: Discontinued Insulin Aspart (Novolog) 10 Unit/0.1 Ml Vial, (Reported) Discontinued Reason: No Longer Taking Entered as Reported by: BLAIR GAO on 04/20/071033 Last Action: Discontinued Lisinopril (Zestrtil 20 Mg) 20 Mg Tablet, (Reported) Discontinued Reason: No Longer Taking Entered as Reported by: JULI GOMEZ on 03/03/08300 Last Action: Discontinued Physical Exam-Cardiology Physical Exam Vital Signs/I&O 01/20/22 01/20/22 01/20/22 01/20/22 00:47 00:55 00:55 03:06 Temp 36.4 Pulse 154 127 Resp 45 36 B/P (MAP) 179/103 (128) Pulse Ox 100 100 99 O2 Delivery NIV CPAP NIV CPAP NIV Bilevel O2 Flow Rate 50.00 FiO2 50 01/20/22 01/20/22 01/20/22 01/20/22 03:09 03:25 03:30 03:44 Temp 36.3 Pulse 118 123 125 126 Resp 29 19 28 B/P (MAP) 162/80 160/96 Pulse Ox 97 100 100 O2 Delivery NIV Bilevel NIV Bilevel O2 Flow Rate 50.00 40.00 40.00 01/20/22 01/20/22 01/20/22 01/20/22 03:45 04:00 04:12 04:15 Temp 36.9 Pulse 120 112 122 Resp 16 18 16 B/P (MAP) 160/96 130/86 141/69 Pulse Ox 100 100 100 99 O2 Delivery NIV Bilevel Vapotherm Vapotherm Vapotherm O2 Flow Rate 40.00 15.00 15.00 15.00 35.00 35.00 FiO2 35 01/20/22 01/20/22 01/20/22 01/20/22 04:45 05:15 05:25 06:00 Temp 36.4 Pulse 125 120 154 111 Resp 15 19 28 B/P (MAP) 147/84 138/70 122/67 Pulse Ox 99 99 100 97 O2 Delivery Vapotherm Vapotherm Vapotherm O2 Flow Rate 15.00 15.00 15.00 35.00 35.00 35.00 FiO2 50 01/20/22 01/20/22 01/20/22 01/20/22 07:00 07:13 07:56 08:00 Temp 36.8 Pulse 122 116 Resp 18 B/P (MAP) 135/74 Pulse Ox 99 99 O2 Delivery Vapotherm High Flow N/C O2 Flow Rate 15.00 2.00 35.00 01/20/22 01/20/22 01/20/22 01/20/22 08:00 09:00 10:00 10:26 Pulse 115 122 113 Resp 19 15 17 B/P (MAP) 132/66 151/82 155/66 Pulse Ox 98 99 99 99 O2 Delivery Vapotherm Vapotherm Vapotherm High Flow N/C O2 Flow Rate 15.00 15.00 15.00 2.00 35.00 35.00 35.00 01/20/22 01/20/22 11:00 12:00 Pulse 108 108 Resp 10 11 B/P (MAP) 135/74 124/99 Pulse Ox 99 99 O2 Delivery Vapotherm Vapotherm O2 Flow Rate 15.00 15.00 35.00 35.00 Capillary Refill : Constitutional: AAO x 3, well-developed, well-nourished HEENT: PERRL, hearing is well preserved, oral hygience is good Neck: No carotid bruit; carotid pulses are 2 + bilaterally Respiratory: No accessory muscle use, No respiratory distress; chest expansion is symmetric, chest is bilaterally symmetric, other (coarse breath sounds bilat with exp wheezes) Cardiovascular: tachycardia, systolic murmur Gastrointestinal: No tender; soft, round, audible bowel sounds Extremities: other (mild bilat LE swelling) Neurologic/Psychiatric: grossly intact (moves all extremities) Skin: No rash on exposed areas, No ulcerations on exposed areas Data Review Labs Laboratory Tests 01/20/22 00:59: White Blood Count 14.0H, Red Blood Count 4.38, Hemoglobin 12.4, Hematocrit 37, Mean Corpuscular Volume 84, Mean Corpuscular Hemoglobin 28, Mean Corpuscular H emoglobin Concent 34, Red Cell Distribution Width 13.8, Platelet Count 246, Mean Platelet Volume 11.9, Immature Granulocyte % (Auto) 0, Neutrophils (%) (Auto) 52, Lymphocytes (%) (Auto) 36, Monocytes (%) (Auto) 9, Eosinophils (%) (Auto) 2, Basophils (%) (Auto) 1, Neutrophils # (Auto) 7.2, Lymphocytes # (Auto) 5.1H, Monocytes # (Auto) 1.2H, Eosinophils # (Auto) 0.3, Basophils # (Auto) 0.1, Immature Granulocyte # (Auto) 0.0, Prothrombin Time 13.7, INR Comment 1.0, Activated Partial Thromboplast Time 37H, D-Dimer 1.14H, Sodium Level 129L, Potassium Level 4.1, Chloride Level 96L, Carbon Dioxide Level 19L, Anion Gap 14, Blood Urea Nitrogen 16, Creatinine 1.13, Estimat Glomerular Filtration Rate 53, BUN/Creatinine Ratio 14, Glucose Level 176H, Calcium Level 9.1, Corrected Calcium 8.8, Total Bilirubin 0.5, Aspartate Amino Transf (AST/SGOT) 28, Alanine Aminotransferase (ALT/SGPT) 26, Alkaline Phosphatase 140H, Troponin I < 0.028, B-Type Natriuretic Peptide 463.1H, Total Protein 8.1, Albumin 4.4 01/20/22 01:08: Influenza Type A (RT-PCR) Not Detected, Influenza Type B (RT-PCR) Not Detected, SARS-CoV-2 RNA (RT-PCR) Not Detected 01/20/22 01:12: Blood Gas Puncture Site LEFT RADIAL, Blood Gas Patient Temperature 36.4, Arterial Blood pH 7.32*L, Arterial Blood Partial Pressure CO2 46H, Arterial Blood Partial Pressure O2 85, Arterial Blood HCO3 23, Arterial Blood Total CO2 24.5, Arterial Blood Oxygen Saturation 96, Arterial Blood Base Excess -2.3, Niraj Test POSITIVE, Blood Gas Ventilator Setting NO, Blood Gas Inspired Oxygen 50% 01/20/22 01:22: Lactic Acid Level 1.06 01/20/22 01:34: Urine Color YELLOW, Urine Clarity CLEAR, Urine pH 7.0, Urine Specific [place] 1.010L, Urine Protein 1+H, Urine Glucose (UA) NEGATIVE, Urine Ketones NEGATIVE, Urine Nitrite NEGATIVE, Urine Bilirubin NEGATIVE, Urine Urobilinogen 0.2, Urine Leukocyte Esterase NEGATIVE, Urine RBC (Auto) TRACE-IH, Urine RBC 0-2, Urine WBC 0-2, Urine Squamous Epithelial Cells 0-2, Urine Crystals NONE, Urine Bacteria NEGATIVE, Urine Casts NONE, Urine Mucus NEGATIVE, Urine Culture Indicated CULTURE PENDING 01/20/22 05:14: Thyroid Stimulating Hormone (TSH) 1.84 01/20/22 05:50: White Blood Count 14.8H, Red Blood Count 3.76L, Hemoglobin 10.7L, Hematocrit 32L , Mean Corpuscular Volume 84, Mean Corpuscular Hemoglobin 29, Mean Corpuscular Hemoglobin Concent 34, Red Cell Distribution Width 13.6, Platelet Count 193, Mean Platelet Volume 12.9H, Immature Granulocyte % (Auto) 1, Neutrophils (%) (Auto) 89H, Lymphocytes (%) (Auto) 6L, Monocytes (%) (Auto) 5, Eosinophils (%) (Auto) 0, Basophils (%) (Auto) 0, Neutrophils # (Auto) 13.1H, Lymphocytes # (Auto) 0.9L, Monocytes # (Auto) 0.7, Eosinophils # (Auto) 0.0, Basophils # (Auto) 0.0, Immature Granulocyte # (Auto) 0.1, Neutrophils % (Manual) 85, Lymphocytes % (Manual) 9, Monocytes % (Manual) 5, Band Neutrophils 1, Blood Morp hology Comment NORMAL, Sodium Level 131L, Potassium Level 3.7, Chloride Level 95L, Carbon Dioxide Level 18L, Anion Gap 18H, Blood Urea Nitrogen 16, Creatinine 1.00, Estimat Glomerular Filtration Rate 61, BUN/Creatinine Ratio 16, Glucose Level 224H, Calcium Level 8.2L 01/20/22 11:06: Glucometer 223H A/P-Cardiology Assessment/Admission Diagnosis CHF - etiology and duration unknown Sinus tachycardia - undetermined etiology Hyponatremia - unclear etiology - possibly secondary to CHF Leukocytosis - undetermined etiology - medical services managing Reports h/o murmur - details unknown H/O TIA vs CVA per pt report - details unknown H/O left sided carotid dz per pt report - followed by [facility] HTN HLD - intolerant to statins per pt report IDDM - insulin pump Discussion and Recomendations CHF of undetermined length of time - Echocardiogram today - Diuretics Request records from [facility] Continue home medications Sinus tachycardia of unclear etiology - start low dose BB Reports h/o carotid dz with CVA vs TIA - restart home dose of Plavix Monitor labs closely - replace electrolytes as indicated We would like to thank medical services for this consult CARLOS POZO MD FACP FAC CCDS Jan 20, 2022 12:19
--- NOTE | 2022-01-20 15:05 | History & Physical-Hospitalist ---
History of Present Illness HPI/Chief Complaint Adriana Pritchard is a 66 year old female with PMH HTN, T1DM on insulin pump, HLD, TIA, COPD, obesity, who presented with shortness of breath. Source: patient Exam Limitations: no limitations Date Seen 01/20/22 Time Seen by a Provider: 09:05 Attending Physician Therese Jules MD PCP Bronwyn Bailey DO Referring Physician Date of Admission Jan 20, 2022 at 02:39 Home Medications & Allergies Home Medications Reviewed patient Home Medication Reconciliation performed by pharmacy medication reconciliations decontamination technician and/or nursing. Patients Allergies have been reviewed. Allergies Allergies Coded Allergies Sulfa (Sulfonamide Antibiotics) (Verified Allergy, Unknown, 04/20/07) doxycycline (Verified Allergy, Unknown, 03/02/08) latex (Verified Allergy, Unknown, 04/20/07) peanut (Unverified Allergy, Unknown, 01/21/22) Uncoded Allergies multiple antibiotics ( Allergy, Mild, 11/12/09) peanut butter ( Allergy, Mild, 11/12/09) Past Ibaqvyf-Srgcag-Dqmtne Hx Patient Social History Tobacco Use?: Yes Tobacco type used: Cigarettes Smoking Status: Current Everyday Smoker Smokeless Tobacco Frequency: Never a User Substance use?: No Alcohol Use?: No Pt feels they are or have been: No Immunizations Up To Date First/Initial COVID19 Vaccinat: 2020 Second COVID19 Vaccination Farhan: 2020 Current Status Advance Directives: No Communicates: Verbally Primary Language: Liberian Preferred Spoken Language: Liberian Is interpretation needed?: No Implanted or Applied Medical D: Insulin pump Review of Systems Constitutional: no symptoms reported EENTM: no symptoms reported Respiratory: short of breath Cardiovascular: no symptoms reported Gastrointestinal: no symptoms reported Genitourinary: no symptoms reported Musculoskeletal: no symptoms reported Skin: no symptoms reported Psychiatric/Neurological: No Symptoms Reported Physical Exam Physical Exam Vital Signs Vital Signs - First Documented 01/20/22 01/20/22 01/20/22 00:47 00:55 03:06 Temp 36.4 Pulse 154 Resp 45 B/P (MAP) 179/103 (128) Pulse Ox 100 O2 Delivery NIV CPAP O2 Flow Rate 50.00 FiO2 50 Capillary Refill : Height, Weight, BMI Height: '" Weight: lbs. oz. kg; 33.20 BMI Method: General Appearance: No Apparent Distress, Anxious, Obese HEENT: PERRL/EOMI, Pharynx Normal Neck: Normal Inspection, Supple Respiratory: Lungs Clear, No Accessory Muscle Use, No Respiratory Distress Cardiovascular: Regular Rate, Rhythm, No Edema, No Murmur Gastrointestinal: Normal Bowel Sounds, Non Tender, Soft Extremity: Normal Inspection, Non Tender, No Pedal Edema Neurologic/Psychiatric: Alert, Oriented x3, No Motor/Sensory Deficits Skin: Normal Color, Warm/Dry Results Results/Procedures Labs Laboratory Tests 01/20/22 00:59 01/20/22 05:50 01/21/22 08:12 Patient resulted labs reviewed. Imaging: Reviewed Imaging Report Assessment/Plan Admission Diagnosis Acute heart failure with preserved ejection fraction Admission Status: Inpatient Order (span 2 midnights) Reason for Inpatient Admission: Respiratory failure Assessment and Plan Acute heart failure with preserved ejection fraction Acute respiratory failure with hypoxia Pulmonary edema Hypertension COPD Chest xray consistent with CHF Given Lasix Started on BiPAP Oxygen requirement improved, now on nasal cannula Echo ordered Cardiology consulted Continue lisinopril Started on Metoprolol T1DM Insulin pump History of TIA Plavix Obesity Clinically significant, no acute management needs DVT prophylaxis: Lovenox Diagnosis/Problems Diagnosis/Problems (1) Flash pulmonary edema Status: Acute (2) Acute heart failure with preserved ejection fraction (HFpEF) Status: Acute (3) Acute respiratory failure with hypoxia Status: Acute (4) HTN (hypertension) Status: Acute (5) T1DM (type 1 diabetes mellitus) Status: Acute Qualifiers: Diabetes mellitus complication status: without complication Qualified Codes: E10.9 - Type 1 diabetes mellitus without complications (6) History of TIA (transient ischemic attack) Status: Chronic (7) Obesity Status: Chronic (8) Hyponatremia Status: Acute PATRICK HAUSER MD Jan 20, 2022 15:05
[2022-01-20 15:20] VITALS: BP 114/64
[2022-01-20 20:00] VITALS: BP 132/89
[2022-01-20] MEDS ORDERED: HYDROcodone/APAP 5 MG/325 MG (LORTAB) TAB PO PRN (21:00)
[2022-01-20] MEDS ORDERED: ALPRAZolam 0.25 MG (XANAX) TAB PO PRN (21:00)
[2022-01-20] MEDS ORDERED: ONDANSETRON 4 MG/2 ML (SDV) Z0FRAN IVP PRN (21:00)
[2022-01-20] MEDS ORDERED: CALCIUM CARBONATE 500 MG (TUMS) TAB.CHEW PO PRN (21:00)
[2022-01-20] MEDS ORDERED: DOCUSATE SODIUM 100 MG (COLACE) CAP PO PRN (21:00)
[2022-01-20] MEDS ORDERED: LACTULOSE SYRUP 10GM/15ML (ENULOSE) 30ML UDC PO PRN (21:00)
[2022-01-20] MEDS ORDERED: BISACODYL 10 MG SUPP (DULCOLAX) PR PRN (21:00)
[2022-01-20] MEDS ORDERED: MELATONIN 3 MG TABLET PO PRN (21:00)
[2022-01-20] MEDS ORDERED: ENOXAPARIN 40 MG/0.4 ML (LOVENOX) SYR SC SCH (21:00)
[2022-01-20] MEDS ORDERED: diphenhydrAMINE 25 MG TAB (BENADRYL) PO PRN (21:00)
[2022-01-20] MEDS ORDERED: ONDANSETRON 4 MG (ZOFRAN) ORAL DISSOLVE TAB PO PRN (21:00)
[2022-01-20] MEDS ORDERED: ACETAMINOPHEN 325 MG TABLET PO PRN (21:00)
[2022-01-21 00:16] VITALS: BP 101/56
[2022-01-21] MEDS: polyethylene glycoL POWDER 17 GM (MIRALAX) PACK PO SCH ×2 (00:27→08:19)
[2022-01-21] MEDS: RT-ALBUTEROL/IPRATROPIUM 3 ML (DUONEB) VIAL INH SCH ×4 (02:13→15:11)
[2022-01-21 04:27] VITALS: BP 115/75
[2022-01-21] MEDS ORDERED: MAGNESIUM 1 GM/100 ML IVPB 100 ML IV SCH (06:00)
[2022-01-21] MEDS ORDERED: POTASSIUM CL 10MEQ/50ML IVPB 50 ML IV SCH (06:00)
[2022-01-21] MEDS ORDERED: KCL 20 MEQ TAB (K-DUR) PO SCH (06:00)
[2022-01-21] MEDS: CATHETER FLUSH 10 ML SYR IVP SCH ×2 (06:27→14:17)
[2022-01-21] MEDS: inSUlin ASPART (NovoLOG) 1 UNIT/0.01 ML (CHARGE PER UNIT) SC SCH ×2 (06:27→11:08)
[2022-01-21 07:34] VITALS: BP 131/78
[2022-01-21] MEDS: CLOPIDOGREL 75 MG (PLAVIX) TABLET PO SCH (08:14)
[2022-01-21] MEDS: ASPIRIN E.C. 81 MG (ECOTRIN) TAB PO SCH (08:14)
[2022-01-21] MEDS: lisINopril 20 MG (PRINIVIL) TABLET PO SCH (08:15)
[2022-01-21 08:38] LABS: CALCIUM 8.5 MG/DL (8.5-10.1); CREATININE SERUM 1.13 MG/DL (0.60-1.30); MAGNESIUM 2.5 MG/DL (1.6-2.4); POTASSIUM 4.4 MMOL/L (3.6-5.0)
--- NOTE | 2022-01-21 08:57 | Progress Note - Cardiology ---
Cardiology SOAP Progress Note Subjective: Sitting up in recliner at the bedside States she feels 1,000% better Wants to go home No c/o CP, SOB, palpitations or LE swelling Objective: I&O/Vital Signs 01/20/22 01/21/22 01/21/22 01/21/22 22:24 00:16 01:40 02:14 Temp 36.6 Pulse 100 109 Resp 18 B/P (MAP) 101/56 (71) Pulse Ox 98 98 98 O2 Delivery Room Air Room Air Room Air 01/21/22 01/21/22 01/21/22 04:27 07:03 07:34 Temp 36.5 37.2 Pulse 93 102 Resp 18 17 B/P (MAP) 115/75 (88) 131/78 (95) Pulse Ox 99 96 97 O2 Delivery Room Air Room Air Room Air O2 Flow Rate 0.00 01/21/22 00:00 Intake Total 645 ml Output Total 500 ml Balance 145 ml Constitutional: AAO x 3, well-developed, well-nourished Respiratory: No accessory muscle use, No respiratory distress; chest expansion is symmetric, chest is bilaterally symmetric, other (coarse breath sounds bilat with exp wheezes) Cardiovascular: regular rate-rhythm, systolic murmur Gastrointestional: No tender; soft, round, audible bowel sounds Extremities: no lower extremity edema bilateral Neurologic/Psychiatric: grossly intact (moves all extremities) Skin: No rash on exposed areas, No ulcerations on exposed areas Results/Procedures: Labs Laboratory Tests 01/20/22 11:06: Glucometer 223H 01/20/22 12:43: Glucometer 227H 01/20/22 20:51: Glucometer 171H 01/21/22 05:11: Glucometer 75 01/21/22 08:12: Sodium Level 127L, Potassium Level 4.4, Chloride Level 93L, Carbon Dioxide Level 23, Anion Gap 11, Blood Urea Nitrogen 22H, Creatinine 1.13, Estimat Glomerular Filtration Rate 53, BUN/Creatinine Ratio 19, Glucose Level 201H, Calcium Level 8.5, Magnesium Level 2.5H Microbiology 01/20/22 MRSA Screen - Final, Complete MRSA not isolated 01/20/22 Blood Culture - Preliminary, Resulted No growth Laboratory Tests 01/20/22 00:59 01/20/22 05:50 01/21/22 08:12 A/P: Assessment: CHF - etiology and duration unknown Sinus tachycardia - undetermined etiology Hyponatremia - unclear etiology - possibly secondary to CHF Leukocytosis - undetermined etiology - medical services managing Reports h/o murmur - details unknown H/O TIA vs CVA per pt report - details unknown H/O left sided carotid dz per pt report - followed by Mariah Smith HTN HLD - intolerant to statins per pt report IDDM - insulin pump Plan: CHF of undetermined length of time - Echocardiogram - pending - start oral lasix Request records from [facility] Continue home medications Sinus tachycardia - improved with low dose BB Reports h/o carotid dz with CVA vs TIA - Continue Plavix Monitor labs closely - replace electrolytes as indicated [facility] MUNO[facility] Jan 21, 2022 08:57
[2022-01-21] MEDS ORDERED: FUROSEMIDE 20 MG (LASIX) TAB PO SCH (09:00)
[2022-01-21 11:11] VITALS: BP 125/61
[2022-01-21] MEDS ORDERED: MTP25TSR PO (11:45)
[2022-01-21] MEDS ORDERED: FURO20TA4 PO (11:45)
[2022-01-21] MEDS ORDERED: SPIR25TA PO (14:52)
--- NOTE | 2022-01-21 15:11 | Discharge Summary ---
Discharge Summary Hospital Course Problems/Dx: (1) Flash pulmonary edema Status: Acute (2) Acute heart failure with preserved ejection fraction (HFpEF) Status: Acute (3) Acute respiratory failure with hypoxia Status: Acute (4) HTN (hypertension) Status: Acute (5) T1DM (type 1 diabetes mellitus) Status: Acute Qualifiers: Qualified Codes: E10.9 - Type 1 diabetes mellitus without complications (6) History of TIA (transient ischemic attack) Status: Chronic (7) Obesity Status: Chronic (8) Hyponatremia Status: Acute Hospital Course Date of Admission: Jan 20, 2022 at 02:39 Admission Diagnosis : Acute hypoxic respiratory failure due to flash pulmonary edema associated with acute heart failure with preserved ejection fraction Family Physician/Provider: Roosevelt Delgadillo Date of Discharge: 01/21/22 Discharge Diagnosis: Acute hypoxic respiratory failure due to flash pulmonary edema associated with acute heart failure with preserved ejection fraction Hospital Course: Adriana Pritchard is a 66 year old female who was admitted with acute hypoxic respiratory failure caused by flash pulmonary edema. Cardiology was consulted and assisted with her care. She was treated with Lasix and BiPAP and her symptoms improved rapidly. She was started on Metoprolol for hypertension and tachycardia. She was started on low dose Lasix. She had an echo which showed borderline ejection fraction 40-45%. Her sodium level was mildly decreased, likely due to heart failure. She was no longer requiring supplemental oxygen at the time of discharge. She was discharged home in stable condition. She should have a BMP later this week or early next week to monitor her sodium levels. She should follow up with her PCP in about a week. Labs and Pending Lab Test: Laboratory Tests 01/20/22 20:51: Glucometer 171H 01/21/22 05:11: Glucometer 75 01/21/22 08:12: Sodium Level 127L, Potassium Level 4.4, Chloride Level 93L, Carbon Dioxide Level 23, Anion Gap 11, Blood Urea Nitrogen 22H, Creatinine 1.13, Estimat Glomerular Filtration Rate 53, BUN/Creatinine Ratio 19, Glucose Level 201H, Calcium Level 8.5, Magnesium Level 2.5H 01/21/22 11:06: Glucometer 166H Microbiology 01/20/22 MRSA Screen - Final, Complete MRSA not isolated 01/20/22 Urine Culture - Final, Complete NO GROWTH 01/20/22 Blood Culture - Preliminary, Resulted No growth Home Meds Active Aldactone (Spironolactone) 25 Mg Tablet 25 Mg PO EVERY OTHER DAY Furosemide 20 Mg Tablet 20 Mg PO DAILY 30 Days Metoprolol Succinate 25 Mg Tab.er.24h 25 Mg PO DAILY 30 Days Reported Aspercreme (Trolamine Salicylate) 10 % Cream..g. 1 Applic TP UD PRN APPLIES TO AFFECTED FINGER(S) Novolog (Insulin Aspart) 100 Unit/Ml Susp Units SC PER PUMP Lisinopril 30 Mg Tablet 30 Mg PO 1200 Clopidogrel (Clopidogrel Bisulfate) 75 Mg Tablet 75 Mg PO 1200 Assessment/Pt Instructions See instructions Discharge Planning: >30 minutes discharge planning Discharge Instructions Discharge Diet: Low Sodium Diet Activity as Tolerated: Yes Consultations Cardiology Discharge Physical Examination Vital Signs Vital Signs Date Time Temp Pulse Resp B/P (MAP) Pulse Ox O2 Delivery O2 Flow Rate FiO2 01/21/22 14:00 103 01/21/22 11:11 36.6 20 125/61 (82) 98 Room Air 01/21/22 10:28 0.00 01/20/22 05:25 50 General Appearance: No Apparent Distress, Obese Respiratory: Lungs Clear, No Respiratory Distress Cardiovascular: Regular Rate, Rhythm, No Murmur Gastrointestinal: Normal Bowel Sounds, Soft Extremity: Normal Inspection, No Pedal Edema Skin: Normal Color, Warm/Dry Neurologic/Psychiatric: Alert, Normal Mood/Affect Allergies: Coded Allergies: Sulfa (Sulfonamide Antibiotics) (Verified Allergy, Unknown, 04/20/07) doxycycline (Verified Allergy, Unknown, 03/02/08) latex (Verified Allergy, Unknown, 04/20/07) peanut (Unverified Allergy, Unknown, 01/21/22) Uncoded Allergies: multiple antibiotics (Allergy, Mild, 11/12/09) peanut butter (Allergy, Mild, 11/12/09) Discharge Summary Date of Admission Jan 20, 2022 at 02:39 Date of Discharge Discharge Date: Jan 21, 2022 Discharge Time: 15:04 Admission Diagnosis Acute heart failure with preserved ejection fraction Consults/Procedures Consulations Cardiology Discharge Diagnosis Acute heart failure with preserved ejection fraction Acute respiratory failure with hypoxia Pulmonary edema Hypertension (1) Flash pulmonary edema Status: Acute (2) Acute heart failure with preserved ejection fraction (HFpEF) Status: Acute (3) Acute respiratory failure with hypoxia Status: Acute (4) HTN (hypertension) Status: Acute (5) T1DM (type 1 diabetes mellitus) Status: Acute Qualifiers: Qualified Codes: E10.9 - Type 1 diabetes mellitus without complications (6) History of TIA (transient ischemic attack) Status: Chronic (7) Obesity Status: Chronic (8) Hyponatremia Status: Acute PATRICK HAUSER MD Jan 21, 2022 15:09
[2022-01-21 15:15] VITALS: BP 125/61
[2022-01-21] MEDS ORDERED: SPIRONOLACTONE 25 MG (ALDACTONE) TAB PO NR (15:30)
--- NOTE | 2022-01-21 15:39 | Progress Note - Cardiology ---
Cardiology SOAP Progress Note Subjective: Feels great today and insists on going home No cp or palp or syncope or shortness of breath No n/v/d No focal weakness Objective: I&O/Vital Signs 01/21/22 01/21/22 01/21/22 01/21/22 04:27 07:03 07:34 08:00 Temp 36.5 37.2 Pulse 93 102 Resp 18 17 B/P (MAP) 115/75 (88) 131/78 (95) Pulse Ox 99 96 97 96 O2 Delivery Room Air Room Air Room Air Nasal Cannula O2 Flow Rate 0.00 2.00 01/21/22 01/21/22 01/21/22 10:28 11:11 14:00 Temp 36.6 Pulse 107 103 Resp 20 B/P (MAP) 125/61 (82) Pulse Ox 98 98 O2 Delivery Room Air Room Air O2 Flow Rate 0.00 01/21/22 00:00 Intake Total 645 ml Output Total 500 ml Balance 145 ml Constitutional: AAO x 3, well-developed, well-nourished Respiratory: No accessory muscle use, No respiratory distress; chest expansion is symmetric, chest is bilaterally symmetric, other (coarse breath sounds bilat with exp wheezes) Cardiovascular: regular rate-rhythm, systolic murmur Gastrointestional: No tender; soft, round, audible bowel sounds Extremities: no lower extremity edema bilateral Neurologic/Psychiatric: grossly intact (moves all extremities) Skin: No rash on exposed areas, No ulcerations on exposed areas Results/Procedures: Labs Laboratory Tests 01/20/22 20:51: Glucometer 171H 01/21/22 05:11: Glucometer 75 01/21/22 08:12: Sodium Level 127L, Potassium Level 4.4, Chloride Level 93L, Carbon Dioxide Level 23, Anion Gap 11, Blood Urea Nitrogen 22H, Creatinine 1.13, Estimat Glomerular Filtration Rate 53, BUN/Creatinine Ratio 19, Glucose Level 201H, Calcium Level 8.5, Magnesium Level 2.5H 01/21/22 11:06: Glucometer 166H Microbiology 01/20/22 MRSA Screen - Final, Complete MRSA not isolated 01/20/22 Urine Culture - Final, Complete NO GROWTH 01/20/22 Blood Culture - Preliminary, Resulted No growth A/P: Assessment: Ac systolic CHF - Echo of 01/21/22: LVEF 40-45%, grade 2 diastolic dysfunction, mod MR, PASP 20- 25 mmHg Sinus tachycardia - undetermined etiology Hyponatremia - unclear etiology - possibly secondary to CHF Leukocytosis and sinus tach - managed by Dr Montiel of the Hospitalist service H/O TIA vs CVA per pt report - details unknown H/O left-sided carotid dz per pt report - followed by Mariah Smith HTN HLD - intolerant to statins per pt report IDDM - insulin pump Plan: I had a long and detailed discussion with her regarding her CV issues Close outpt cardiac f/u advised Questions answered in detail Reports h/o carotid dz with CVA vs TIA - Continue Plavix CARLOS POZO MD FACP FAC CCDS Jan 21, 2022 15:39
[2022-01-22] MEDS ORDERED: SPIRONOLACTONE 25 MG (ALDACTONE) TAB PO SCH (09:00)
[2022-01-22] MEDS ORDERED: MTP25TSR PO (11:25)
[2022-01-22] MEDS ORDERED: FURO20TA4 PO (11:25)
[2022-01-22] MEDS ORDERED: SPIR25TA5 PO (11:25)
== END 2022-01-21 16:03 | disposition home or self-care (01) | DRG 291 ==
LOC: EDUNIT# 00:45 → ER 00:48 → ICU 02:39 → 4TH 14:36 → EDPENDDISTM 01-21 16:00
PROVIDERS: ADMIT Family Medicine; ATTEND Internal Medicine
PROC: 5A09357 Assistance with Respiratory Ventilation, Less than 24 Consecutive Hours, Continuous Positive Airway Pressure (ICD-10-PCS; principal; 2022-01-20)
DX: I11.0 Hypertensive heart disease with heart failure (principal); I50.31 Acute diastolic (congestive) heart failure; J96.01 Acute respiratory failure with hypoxia; J44.1 Chronic obstructive pulmonary disease with (acute) exacerbation; E87.1 Hypo-osmolality and hyponatremia; J44.9 Chronic obstructive pulmonary disease, unspecified; Z79.82 Long term (current) use of aspirin; Z79.4 Long term (current) use of insulin; Z79.899 Other long term (current) drug therapy; Z20.822 Contact with and (suspected) exposure to COVID-19; E10.9 Type 1 diabetes mellitus without complications; Z86.73 Personal history of transient ischemic attack (TIA), and cerebral infarction without residual deficits; E66.9 Obesity, unspecified; E78.5 Hyperlipidemia, unspecified; Z88.2 Allergy status to sulfonamides; Z91.040 Latex allergy status; F17.210 Nicotine dependence, cigarettes, uncomplicated; R00.0 Tachycardia, unspecified
CPT/HCPCS: 36415; 36600; 51702; 71045; 80048; 80053; 81000; 82805; 82947; 83605; 83735; 83880; 84443; 84484; 85007; 85025; 85027; 85379; 85610; 85730; 87040; 87081; 87088; 87636; 93005; 93306; 94640; 94660; 94760; 99291

== ENCOUNTER 2022-01-21 23:00 | Observation (INO) | payer MEDICARE, MEDICAID ==
[~2022-01-21] VITALS: Ht 157.5 cm; Wt 90.0 kg
[~2022-01-21 23:00] MED LIST changes: +CLOP75TA28 PO; +FURO20TA4 PO; +INSU100V16 SC; +LISI30TA5 PO; +MTP25TSR PO; +SPIR25TA PO; +TROL85CR37 TP
--- NOTE | 2022-01-21 23:19 | ED Dyspnea ---
General Stated Complaint: CANT BREATH Source of Information: Patient, Old Records History of Present Illness Date Seen by Provider: Jan 21, 2022 Time Seen by Provider: 23:06 Initial Comments PT ARRIVES VIA POV FROM HOME C/O SUDDEN ONSET OF SHORTNESS OF BREATH AROUND 2214 WHEN SHE LAID DOWN TO GO TO SLEEP STATES HER CHEST FEELS TIGHT WHEN SHE BREATHES, BUT DENIES ACTUAL CHEST PAIN + ORTHOPNEA STATES HER ANKLES STARTED SWELLING THIS EVENING NO COUGH NO FEVER NO SWEATS NO PALPITATIONS NO SYNCOPE PT WAS ADMITTED YESTERDAY TO ICU ON BIPAP FOR SAME WAS DX WITH FLASH PULMONARY EDEMA/CHF AND DISMISSED EARLIER TODAY--REPORTS THAT SHE DID NOT REQUIRE O2 PRIOR TO DISMISSAL PT HAS HISTORY OF IDDM AND HAS AN INSULIN PUMP HAS HISTORY OF HTN, AND TIA VS CVA PT STATES SHE HAS NEVER BEEN TOLD SHE HAD COPD UNTIL SOMEONE MENTIONED IT WITH HER ADMIT YESTERDAY/TODAY. PT HAS NEVER HAD AN INHALER OR NEBULIZER OR HOME O2. PT SMOKES 1/2 PPD, NONE SINCE YESTERDAY PCP: DR. WIGGINS, [facility] DOU[facility]ER OPERATOR: DR. DAMICO WITH [facility] Allergies and Home Medications Allergies Coded Allergies: Sulfa (Sulfonamide Antibiotics) (Verified Allergy, Unknown, 04/20/07) doxycycline (Verified Allergy, Unknown, 03/02/08) latex (Verified Allergy, Unknown, 04/20/07) peanut (Unverified Allergy, Unknown, 01/21/22) Uncoded Allergies: multiple antibiotics (Allergy, Mild, 11/12/09) peanut butter (Allergy, Mild, 11/12/09) Patient Home Medication List Home Medication List Reviewed: Yes Clopidogrel Bisulfate (Clopidogrel) 75 Mg Tablet, 75 MG PO 1200, (Reported) Entered as Reported by: IVONE CERVANTES on 01/20/22 1004 Last Action: Reviewed Furosemide (Furosemide) 20 Mg Tablet, 20 MG PO DAILY, (Reported) Entered as Reported by: IVONE CERVANTES on 01/22/22 1125 Last Action: Reviewed Insulin Aspart (Novolog) 100 Unit/Ml Susp, UNITS SC PER PUMP, (Reported) Entered as Reported by: IVONE CERVANTES on 01/20/22 1004 Last Action: Reviewed Lisinopril (Lisinopril) 30 Mg Tablet, 30 MG PO 1200, (Reported) Entered as Reported by: IVONE CERVANTES on 01/20/22 1004 Last Action: Reviewed Metoprolol Succinate (Metoprolol Succinate) 25 Mg Tab.er.24h, 25 MG PO DAILY, (Reported) Entered as Reported by: IVONE CERVANTES on 01/22/22 112 Last Action: Reviewed Spironolactone (Spironolactone) 25 Mg Tablet, 25 MG PO Q48H, (Reported) Entered as Reported by: IVONE CERVANTES on 01/22/22 112 Last Action: Reviewed Trolamine Salicylate (Aspercreme) 10 % Cream..g., 1 APPLIC TP UD PRN for PAIN- BREAKTHROUGH, (Reported) Entered as Reported by: IVONE CERVANTES on 01/20/22 100 Last Action: Reviewed Discontinued Medications Aspirin (Aspirin) 81 Mg Tablet, (Reported) Discontinued Reason: No Longer Taking Entered as Reported by: JULI GOMEZ on 03/03/08 0301 Clopidogrel (Plavix) 75 Mg Tablet, (Reported) Discontinued Reason: No Longer Taking Entered as Reported by: JULI GOMEZ on 03/03/08 0301 Furosemide (Furosemide) 20 Mg Tablet, 20 MG PO DAILY Discontinued Reason: Duplicate Order Prescribed by: PATRICK HAUSER on 01/21/22 114 Last Action: Discontinued Insulin Aspart (Novolog) 10 Unit/0.1 Ml Vial, (Reported) Discontinued Reason: No Longer Taking Entered as Reported by: BLAIR GAO on 04/20/07 1034 Lisinopril (Zestrtil 20 Mg) 20 Mg Tablet, (Reported) Discontinued Reason: No Longer Taking Entered as Reported by: JULI GOMEZ on 03/03/08 0301 Metoprolol Succinate (Metoprolol Succinate) 25 Mg Tab.er.24h, 25 MG PO DAILY Discontinued Reason: Duplicate Order Prescribed by: PATRICK HAUSER on 01/21/22 114 Last Action: Discontinued Spironolactone (Aldactone) 25 Mg Tablet, 25 MG PO Every other day Discontinued Reason: Duplicate Order Prescribed by: RITIKA AYALA on 01/21/22 6018 Last Action: Discontinued Review of Systems Review of Systems Constitutional: no symptoms reported; No diaphoresis Respiratory: see HPI; No cough; dyspnea on exertion, orthopnea, short of breath Cardiovascular: see HPI Gastrointestinal: no symptoms reported Genitourinary: no symptoms reported Musculoskeletal: no symptoms reported Skin: no symptoms reported Psychiatric/Neurological: Anxiety Endocrine: See HPI Hematologic/Lymphatic: No Symptoms Reported Past Hbrpaid-Rhixme-Jhlxpp Hx Patient Social History Tobacco Use?: Yes Tobacco type used: Cigarettes Smoking Status: Current Everyday Smoker Substance use?: No Alcohol Use?: No Immunizations Up To Date First/Initial COVID19 Vaccinat: 2020 Second COVID19 Vaccination Farhan: 2020 Past Medical History Surgeries: Yes Tubal Ligation Respiratory: Yes (? COPD? 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 oz. 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 II- XII Norm as Tested Skin: Normal Color (PT IS BLACK), Warm/Dry; No Rash Progress/Results/Core Measures Results/Orders Lab Results Laboratory Tests Test 01/21/22 00:22 01/22/22 00:05 01/22/22 00:21 Range/Units Blood Gas Puncture Site LEFT RADIAL Blood Gas Patient Temperature 36 Arterial Blood pH 7.45 H 7.37-7.43 Arterial Blood Partial Pressure CO2 34 L 35-45 MMHG Arterial Blood Partial Pressure O2 69 L 79-93 MMHG Arterial Blood HCO3 23 23-27 MMOL/L Arterial Blood Total CO2 24.2 21.0-31.0 MMOL/L Arterial Blood Oxygen Saturation 95 94-100 % Arterial Blood Base Excess -0.6 -2.5-2.5 MMOL/L Niraj Test POSITIVE Blood Gas Ventilator Setting NO Blood Gas Inspired Oxygen 35% White Blood Count 12.4 H 4.3-11.0 10^3/uL Red Blood Count 4.22 3.80-5.11 10^6/uL Hemoglobin 11.9 11.5-16.0 g/dL Hematocrit 35 35-52 % Mean Corpuscular Volume 83 80-99 fL Mean Corpuscular Hemoglobin 28 25-34 pg Mean Corpuscular Hemoglobin Concent 34 32-36 g/dL Red Cell Distribution Width 13.6 10.0-14.5 % Platelet Count 210 130-400 10^3/uL Mean Platelet Volume 12.2 9.0-12.2 fL Immature Granulocyte % (Auto) 0 % Neutrophils (%) (Auto) 74 42-75 % Lymphocytes (%) (Auto) 16 12-44 % Monocytes (%) (Auto) 8 0-12 % Eosinophils (%) (Auto) 2 0-10 % Basophils (%) (Auto) 1 0-10 % Neutrophils # (Auto) 9.2 H 1.8-7.8 10^3/uL Lymphocytes # (Auto) 1.9 1.0-4.0 10^3/uL Monocytes # (Auto) 1.0 0.0-1.0 10^3/uL Eosinophils # (Auto) 0.2 0.0-0.3 10^3/uL Basophils # (Auto) 0.1 0.0-0.1 10^3/uL Immature Granulocyte # (Auto) 0.0 0.0-0.1 10^3/uL Neutrophils % (Manual) 72 % Lymphocytes % (Manual) 17 % Monocytes % (Manual) 7 % Eosinophils % (Manual) 1 % Atypical Lymphocytes 3 % Blood Morphology Comment NORMAL Prothrombin Time 14.1 12.2-14.7 SEC INR Comment 1.1 0.8-1.4 Activated Partial Thromboplast Time 42 H 24-35 SEC D-Dimer 1.89 H 0.00-0.49 UG/ML Sodium Level 124 *L 135-145 MMOL/L Potassium Level 4.5 3.6-5.0 MMOL/L Chloride Level 91 L 98-107 MMOL/L Carbon Dioxide Level 17 L 21-32 MMOL/L Anion Gap 16 H 5-14 MMOL/L Blood Urea Nitrogen 22 H 7-18 MG/DL Creatinine 1.08 0.60-1.30 MG/DL Estimat Glomerular Filtration Rate 56 BUN/Creatinine Ratio 20 Glucose Level 166 H 70-105 MG/DL Calcium Level 9.1 8.5-10.1 MG/DL Corrected Calcium 8.9 8.5-10.1 MG/DL Magnesium Level 2.2 1.6-2.4 MG/DL Total Bilirubin 0.8 0.1-1.0 MG/DL Aspartate Amino Transf (AST/SGOT) 105 H 5-34 U/L Alanine Aminotransferase (ALT/SGPT) 88 H 0-55 U/L Alkaline Phosphatase 196 H 40-136 U/L Total Creatine Kinase 376 H 29-168 U/L Creatine Kinase MB 5.0 <6.6 NG/ML Myoglobin 164.1 H 10.0-92.0 NG/ML Troponin I 0.038 H <0.028 NG/ML B-Type Natriuretic Peptide 703.1 H <100.0 PG/ML Total Protein 7.8 6.4-8.2 GM/DL Albumin 4.2 3.2-4.5 GM/DL Serum Alcohol < 10 <10 MG/DL Urine Color YELLOW Urine Clarity CLEAR Urine pH 6.0 5-9 Urine Specific [place] 1.010 L 1.016-1.022 Urine Protein NEGATIVE NEGATIVE Urine Glucose (UA) NEGATIVE NEGATIVE Urine Ketones NEGATIVE NEGATIVE Urine Nitrite NEGATIVE NEGATIVE Urine Bilirubin NEGATIVE NEGATIVE Urine Urobilinogen 0.2 < = 1.0 MG/DL Urine Leukocyte Esterase NEGATIVE NEGATIVE Urine RBC (Auto) TRACE-I H NEGATIVE Urine RBC 0-2 /HPF Urine WBC 0-2 /HPF Urine Squamous Epithelial Cells 0-2 /HPF Urine Crystals NONE /LPF Urine Bacteria NEGATIVE /HPF Urine Casts NONE /LPF Urine Mucus NEGATIVE /LPF Urine Culture Indicated NO Urine Opiates Screen NEGATIVE NEGATIVE Urine Oxycodone Screen NEGATIVE NEGATIVE Urine Methadone Screen NEGATIVE NEGATIVE Urine Propoxyphene Screen NEGATIVE NEGATIVE Urine Barbiturates Screen NEGATIVE NEGATIVE Ur Tricyclic Antidepressants Screen NEGATIVE NEGATIVE Urine Phencyclidine Screen NEGATIVE NEGATIVE Urine Amphetamines Screen NEGATIVE NEGATIVE Urine Methamphetamines Screen NEGATIVE NEGATIVE Urine Benzodiazepines Screen NEGATIVE NEGATIVE Urine Cocaine Screen NEGATIVE NEGATIVE Urine Cannabinoids Screen NEGATIVE NEGATIVE My Orders Orders - LEXIE HUNTER DO Ed Iv/Invasive Line Start (01/21/22 23:06) Ekg Tracing (01/21/22 23:06) O2 (01/21/22 23:06) Monitor-Rhythm Ecg Trace Only (01/21/22 23:06) Chest 1 View, Ap/Pa Only (01/21/22 23:06) Bnp Lindsay (01/21/22 23:06) Cbc With Automated Diff (01/21/22 23:06) Comprehensive Metabolic Panel (01/21/22 23:06) Creatine Kinase (01/21/22 23:06) Creatine Kinase Mb (01/21/22 23:06) Magnesium (01/21/22 23:06) Protime With Inr (01/21/22 23:) Partial Thromboplastin Time (01/21/22 23:06) Myoglobin Serum (01/21/22 23:06) Troponin I [place] (01/21/22 23:06) Arterial Blood Gas (01/21/22 23:19) Furosemide Injection (Lasix Injection) (01/21/22 23:30) Nitroglycerin Ointment (Nitrobid Ointme (01/21/22:30) Methylprednisolone Sod Succ (Solu-Medrol (01/21/22 23:30) Alcohol (01/21/22 23:52) Drug Screen Stat (Urine) (01/21/22 23:52) Ua Culture If Indicated (01/21/22 23:52) Catheter(Urinary) Insert & Ass 03,15 (01/21/22 23:52) Fibrin Degradation Products (01/21/22 23:58) Albuterol/Ipra Inhalation Soln (Duoneb I (01/22/22 00:15) Dexamethasone Injection (Decadron Injec (01/22/22 00:15) Rt Request For Service (01/22/22 00:03) Svn Small Volume Nebulizer (01/22/22 00:03) Enoxaparin Injection (Lovenox Injection) (01/22/22 00:15) Manual Differential (01/22/22 00:05) Medications Given in ED Vital Signs/I&O 01/21/22 01/21/22 01/22/22 23:05 23:05 00:16 Temp 36.6 Pulse 135 121 Resp 29 B/P (MAP) 187/93 (124) Pulse Ox 91 91 97 O2 Delivery Nasal Cannula Nasal Cannula O2 Flow Rate 2.00 2.00 35.00 Progress Progress Note : Progress Note O2 SAT 87-88% ON ROOM AIR ON ARRIVAL PLACED ON O2 AT 2L/NC AND O2 SATS UP TO 95% BUT PT IS STILL DYSPNEIC BIPAP AND NEB TREATMENT GIVEN PT ALSO GIVEN LASIX, NITROPASTE AND SOLU-MEDROL BP 180'S/100'S ON ARRIVAL HR IN 130'S ON ARRIVAL MUCH DIFFICULTY GAINING IV ACCESS UNABLE TO DO CT CHEST ANGIOGRAM AT THIS TIME, WILL ORDER VQ SCAN IN THE MORNING, AND TREAT WITH LOVENOX UNTIL VQ SCAN CAN BE DONE PT WITH SIGNIFICANT IMPROVEMENT IN CONDITION AT TIME OF ADMIT PT TOLERATING BIPAP AND IS RESTING COMFORTABLY. PT IS NO LONGER DYSPNEIC, AND STATES SHE FEELS MUCH BETTER ALL VITALS IMPROVED AT TIME OF ADMIT O2 SAT 100% ON BIPAP RESPIRATORY RATE AROUND 20 BP AND HEART RATE DOWN NO FEVER AT ANY TIME NO COUGH AT ANY TIME PT HAD 2650 ML URINE OUTPUT PRIOR TO ADMIT. PT WISHES TO BE A FULL CODE, AND DAUGHTER WAS IN THE ROOM WHEN THIS WAS DISCUSSED WITH THE PATIENT AND VERIFIED THIS. Initial ECG Impression Date: Jan 21, 2022 Initial ECG Impression Time: 23:14 Initial ECG Rate: 120 Initial ECG Rhythm: S.Tach Diagnostic Imaging Comments CXR--CHF, PENDING RADIOLOGIST REVIEW Departure Communication (Admissions) 0140--SPOKE WITH DR. FERRARI, HOSPITALIST, ACCEPTS PT FOR ADMIT 0141--REPORT TO E-ICU PHYSICIAN. Impression Primary Impression: Acute respiratory failure with hypoxia Additional Impressions: CHF (congestive heart failure) IDDM (insulin dependent diabetes mellitus) HTN (hypertension) Hyponatremia Sinus tachycardia Elevated troponin Elevated d-dimer POOR VASCULAR ACCESS Disposition: ADMITTED INPATIENT Condition: Improved Admissions Decision to Admit Reason: Admit from ER (General) Decision to Admit/Date: Jan 22, 2022 Time/Decision to Admit Time: 01:40 Departure-Patient Inst. Referrals: CATRACHITO CAGLE DO (PCP/Family) Primary Care Physician LEXIE HUNTER DO Jan 21, 2022 23:19
[2022-01-21] MEDS ORDERED: FUROSEMIDE 40 MG/4 ML INJ (LASIX) IVP ONE (23:30)
[2022-01-21] MEDS ORDERED: methylPREDNISolone 125 MG (Solu-MEDROL) VIAL IVP ONE (23:30)
[2022-01-21] MEDS ORDERED: NITROGLYCERIN 2% OINT 1 GM UNIT DOSE PACKET TOP ONE (23:30)
[2022-01-22] MEDS ORDERED: RT-ALBUTEROL/IPRATROPIUM 3 ML (DUONEB) VIAL INH ONE (00:15)
[2022-01-22] MEDS ORDERED: ENOXAPARIN 100 MG/1 ML (LOVENOX) SYR SC ONE ×2 (00:15→06:00)
[2022-01-22 00:16] VITALS: BP 173/108
[2022-01-22 00:22] LABS: BASOPHILS # (AUTO) 0.1 10^3/uL (0.0-0.1); BASOPHILS % (AUTO) 1 % (0-10); EOSINOPHILS # (AUTO) 0.2 10^3/uL (0.0-0.3); EOSINOPHILS % (AUTO) 2 % (0-10); HEMATOCRIT 35 % (35-52); HEMOGLOBIN 11.9 g/dL (11.5-16.0); LYMPHOCYTES # (AUTO) 1.9 10^3/uL (1.0-4.0); LYMPHOCYTES % (AUTO) 16 % (12-44); MEAN CORPUSCULAR HEMOGLOBIN 28 pg (25-34); MEAN CORPUSCULAR HGB CONC 34 g/dL (32-36); MEAN CORPUSCULAR VOLUME 83 fL (80-99); MEAN PLATELET VOLUME 12.2 fL (9.0-12.2); MONOCYTES % (AUTO) 8 % (0-12); NEUTROPHILS # (AUTO) 9.2 10^3/uL (1.8-7.8); NEUTROPHILS % (AUTO) 74 % (42-75); PLATELET COUNT 210 10^3/uL (130-400); WHITE BLOOD COUNT 12.4 10^3/uL (4.3-11.0)
[2022-01-22 00:35] LABS: ABG BASE EXCESS -0.6 MMOL/L (-2.5-2.5); ABG OXYGEN SATURATION 95 % (94-100); ABG PCO2 34 MMHG (35-45); ABG PH 7.45 (7.37-7.43); ABG PO2 69 MMHG (79-93); ABG TCO2 24.2 MMOL/L (21.0-31.0)
[2022-01-22 00:36] LABS: ALLENS TEST POSITIVE; INSPIRED O2 35%; PATIENT TEMP 36; VENTILATOR NO
[2022-01-22 00:41] LABS: BILIRUBIN,URINE NEGATIVE (NEGATIVE); CLARITY,URINE CLEAR; COLOR,URINE YELLOW; GLUCOSE, URINE (UA) NEGATIVE (NEGATIVE); KETONES,URINE NEGATIVE (NEGATIVE); LEUKOCYTE ESTERASE ,URINE NEGATIVE (NEGATIVE); NITRITE,URINE NEGATIVE (NEGATIVE); PROTEIN,URINE NEGATIVE (NEGATIVE)
[2022-01-22 00:42] LABS: ALBUMIN 4.2 GM/DL (3.2-4.5); CHLORIDE 91 MMOL/L (98-107); POTASSIUM 4.5 MMOL/L (3.6-5.0)
[2022-01-22 00:44] LABS: CALCIUM 9.1 MG/DL (8.5-10.1); FIBRIN DEGRADATION PRODUCTS 1.89 UG/ML (0.00-0.49); INR 1.1 (0.8-1.4); PROTHROMBIN TIME PATIENT 14.1 SEC (12.2-14.7)
[2022-01-22 00:45] LABS: GLUCOSE 166 MG/DL (70-105); TOTAL PROTEIN 7.8 GM/DL (6.4-8.2)
[2022-01-22 00:46] LABS: CARBON DIOXIDE 17 MMOL/L (21-32)
[2022-01-22 00:47] LABS: BILIRUBIN,TOTAL 0.8 MG/DL (0.1-1.0)
[2022-01-22 00:48] LABS: ALKALINE PHOSPHATASE 196 U/L (40-136); CREATININE SERUM 1.08 MG/DL (0.60-1.30); GFR ESTIMATED 56
[2022-01-22 00:49] LABS: BUN/CREATININE RATIO 20
[2022-01-22 00:51] LABS: ALANINE AMINOTRANSFERASE 88 U/L (0-55); MAGNESIUM 2.2 MG/DL (1.6-2.4)
[2022-01-22 00:52] LABS: CREATINE KINASE 376 U/L (29-168)
[2022-01-22 01:01] LABS: AMPHETAMINE SCREEN, URINE NEGATIVE (NEGATIVE); BARBITURATE SCREEN URINE NEGATIVE (NEGATIVE); BENZODIAZEPINES SCREEN URINE NEGATIVE (NEGATIVE); CANNABINOID SCREEN, URINE NEGATIVE (NEGATIVE); COCAINE SCREEN URINE NEGATIVE (NEGATIVE); METHADONE STAT NEGATIVE (NEGATIVE); OPIATE SCREEN URINE NEGATIVE (NEGATIVE); OXYCODONE STAT NEGATIVE (NEGATIVE); PROPOXYPHENE STAT NEGATIVE (NEGATIVE); TRICYCLIC ANTIDEPRESSANTS SCRE NEGATIVE (NEGATIVE)
[2022-01-22 01:02] LABS: ATYPICAL LYMPHOCYTES 3 %; EOSINOPHILS % (MANUAL) 1 %; LYMPHOCYTES % (MANUAL) 17 %; MONOCYTES % (MANUAL) 7 %; NEUTROPHILS % (MANUAL) 72 %; RBC MORPH NORMAL
[2022-01-22 01:07] LABS: SODIUM 124 MMOL/L (135-145)
[2022-01-22 01:13] LABS: BACTERIA,URINE NEGATIVE /HPF; RBC,URINE 0-2 /HPF; SQUAMOUS EPITHELIAL CELL,UR 0-2 /HPF; WBC,URINE 0-2 /HPF
--- NOTE | 2022-01-22 02:03 | Tele-ICU Progress Note ---
Subjective Date Seen by a Provider: Jan 22, 2022 Time Seen by a Provider: 01:30 Subjective/Events-last exam This virtual visit was conducted using real time audio/video. Thank you for asking us to see this patient for respiratory insufficiency due to pulm edema/COPD. Recent events:Just discharged yesterday w similar presentation. PMH: DM1, COPD, HTN, TIA. SH: smoking history-current FH: Non-contributory ROS: as in HPI. PE: VSS. O2 sat 98% on BiPAP 35%. HEENT: No obvious masses, adenopathy or JVD. Chest: clear to auscultation. Diminished. CV: RRR S1 S2 No murmur or added sounds. Abd: Non-tender. Bowel sounds Y. : Unremarkable. [place] Y. 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 No obvious focal findings. Extremities: I+ edema. Capillary refill < 3 seconds. Skin: unremarkable. Results: Elevated WCC 12.4, BUN 22, D-dimer 1.89, troponin 0.038, BNP 703.. Decreased Na 124. B.45/34/69 shortly after BiPAP begun.. CXR: Hyperinflated, congested. . Available chart/ vitals / labs / images reviewed. Video assessment done using teleICU camera, rest of exam as per RN. A/P: Respiratory insufficiency: Continue present management with Medrol, Duonebs, BiPAP Monitor for increasing oxygenation needs and/or need for intubation. Unable to gain IV access for CTAC. Given full dose Lovenox and plan on V/Q later. Anesthesia to see for CVC. Critical Care: critically ill patient. Cont. Lasix, NTP. Discussed with RN Trey and ER MD DR. Wright. Asked RN to reach out to eICU if any questions or concerns later. Time spent with patient/coordination of care with other health professionals (mins): 33 Sepsis Event Evaluation Height, Weight, BMI Height: '" Weight: lbs. oz. kg; 31.00 BMI Method: Exam Exam Patient acknowledged, consented, and participated in this virtual visit which was conducted using real time audio/video Vital Signs Date Time Temp Pulse Resp B/P (MAP) Pulse Ox O2 Delivery O2 Flow Rate FiO2 01/22/22 00:16 121 97 35.00 01/21/22 23:05 36.6 135 29 187/93 (124) 91 Nasal Cannula 2.00 Height & Weight Height: '" Weight: lbs. oz. kg; 31.00 BMI Method: General Appearance: Mild Distress Capillary Refill: Less Than 3 Seconds Peripheral Pulses: 1+ Dorsalis Pedis (R), 1+ Left Dors-Pedis (L) (See free text) Results Lab Laboratory Tests 01/22/22 00:05 Assessment/Plan Assessment/Plan See free text. Critical Care: Critically Ill Patient GABY GRIJALVA MD Jan 22, 2022 02:03
[2022-01-22] MEDS ORDERED: NS IV 1000 ML 1,000 ML ONE (03:10)
[2022-01-22 04:12] VITALS: BP 180/100
[2022-01-22] MEDS ORDERED: NS IV 1000 ML 1,000 ML IV SCH (04:15)
[2022-01-22] MEDS ORDERED: RT-ALBUTEROL/IPRATROPIUM 3 ML (DUONEB) VIAL INH PRN (04:15)
[2022-01-22 04:25] LABS: BASOPHILS % (AUTO) 0 % (0-10); EOSINOPHILS % (AUTO) 0 % (0-10); HEMATOCRIT 33 % (35-52); HEMOGLOBIN 11.4 g/dL (11.5-16.0); LYMPHOCYTES # (AUTO) 0.5 10^3/uL (1.0-4.0); LYMPHOCYTES % (AUTO) 4 % (12-44); MEAN CORPUSCULAR HEMOGLOBIN 28 pg (25-34); MEAN CORPUSCULAR HGB CONC 34 g/dL (32-36); MEAN CORPUSCULAR VOLUME 82 fL (80-99); MEAN PLATELET VOLUME 12.3 fL (9.0-12.2); MONOCYTES # (AUTO) 0.1 10^3/uL (0.0-1.0); MONOCYTES % (AUTO) 1 % (0-12); NEUTROPHILS # (AUTO) 12.2 10^3/uL (1.8-7.8); NEUTROPHILS % (AUTO) 94 % (42-75); PLATELET COUNT 186 10^3/uL (130-400)
[2022-01-22 04:42] LABS: POTASSIUM 3.8 MMOL/L (3.6-5.0)
[2022-01-22 04:43] LABS: CALCIUM 8.9 MG/DL (8.5-10.1)
[2022-01-22 04:47] LABS: PHOSPHORUS 3.7 MG/DL (2.3-4.7)
[2022-01-22 04:48] LABS: CREATININE SERUM 1.08 MG/DL (0.60-1.30)
[2022-01-22 04:50] LABS: MAGNESIUM 1.9 MG/DL (1.6-2.4)
[2022-01-22 05:11] LABS: ABG OXYGEN SATURATION 99 % (94-100); ABG PCO2 36 MMHG (35-45); ABG PH 7.45 (7.37-7.43); ABG PO2 113 MMHG (79-93); ABG TCO2 25.8 MMOL/L (21.0-31.0)
[2022-01-22 05:12] LABS: ALLENS TEST POSITIVE; INSPIRED O2 16; PATIENT TEMP 36.9; VENTILATOR YES
[2022-01-22] MEDS: KCL 20 MEQ TAB (K-DUR) PO SCH (05:45)
[2022-01-22] MEDS: MAGNESIUM 1 GM/100 ML IVPB 100 ML IV SCH (05:45)
[2022-01-22] MEDS: POTASSIUM CL 10MEQ/50ML IVPB 50 ML IV SCH (05:45)
[2022-01-22] MEDS ORDERED: methylPREDNISolone 125 MG (Solu-MEDROL) VIAL IV NR (06:00)
[2022-01-22] MEDS ORDERED: FUROSEMIDE 40 MG/4 ML INJ (LASIX) IV NR (06:00)
[2022-01-22] MEDS ORDERED: NITROGLYCERIN 2% OINT 1 GM UNIT DOSE PACKET TOP SCH (06:00)
[2022-01-22] MEDS: ACETAMINOPHEN 325 MG TABLET PO PRN (06:25)
[2022-01-22] MEDS: inSUlin ASPART (NovoLOG) 1 UNIT/0.01 ML (CHARGE PER UNIT) SC SCH ×4 (06:27→21:25)
[2022-01-22] MEDS: RT-ALBUTEROL/IPRATROPIUM 3 ML (DUONEB) VIAL INH SCH ×5 (06:35→23:16)
--- NOTE | 2022-01-22 07:20 | Diagnostic Imaging Report ---
INDICATION: Dyspnea. Comparison with 01/20/2022. FINDINGS: The lungs are well-aerated. The bilateral infiltrates noted previously remain present or slightly less dense today. These are more prominent in the lung bases. The heart is not enlarged. No pneumothorax or pleural effusion. IMPRESSION: 1. Continued bilateral infiltrates though overall appearance has improved slightly since previous exam. Dictated by: Dictated on workstation # [id number]
--- NOTE | 2022-01-22 08:39 | Consultation-Cardiology ---
HPI-Cardiology Cardiology Consultation: Date of Consultation 01/22/22 Time Seen by a Provider: 08:15 Date of Admission 01-21-22 Attending Physician Delores Ramirez DO Admitting Physician Roosevelt Delgadillo DO Consulting Physician Elia Bravo MD HPI: Chief Complaint: Acute on chronic systolic CHF Ms. Velázquez is a 66 yr old female discharged yesterday from this hospital. She returned to the ED last night d/t increasing SOB with orthopnea. She reports she felt well at the time of discharge and had not SOB. She reports she went home and ate chicken wings and fries. She reports she began to feel heaviness in her chest after eating. She reports one episode of diarrhea, attributing it to the Miralax she was given yesterday. She states she began to have bilat LE ankle swelling. She reports she generally felt unwell. She states she tried to lay down in bed, but was unable to d/t SOB so she returned to the ED. She reports her SOB is improved, but not back to baseline. No c/o CP or palpitations. No c/o syncope or near syncope Review of Systems-Cardiology Review of Systems Constitutional: No chills, No fever, No lightheadedness Eyes: No vision change Ears/Nose/Throat: No epistaxis Respiratory: As described under HPI Cardiovascular: As described under HPI Gastrointestinal: As described under HPI Genitourinary: No dysuria, No hematuria Musculoskeletal: no symptoms reported Skin: No rash on exposed areas, No ulcerations on exposed areas Psychiatric/Neurological: anxiety; No seizure, No focal weakness, No syncope Hematologic: No bleeding abnormalities IBQ-Xupbpb-Lydror Hx Patient Social History Smoking Status: Current Everyday Smoker Have you traveled recently?: No Alcohol Use?: No Pt feels they are or have been: No Tobacco type used: Cigarettes Past Medical History PMH As described under Assessment. Family Medical History Family Medical History: She reports her mother had h/o CAD with MO. Allergies and Home Medications Allergies Coded Allergies: Sulfa (Sulfonamide Antibiotics) (Verified Allergy, Unknown, 04/20/07) doxycycline (Verified Allergy, Unknown, 03/02/08) latex (Verified Allergy, Unknown, 04/20/07) peanut (Unverified Allergy, Unknown, 01/21/22) Uncoded Allergies: multiple antibiotics (Allergy, Mild, 11/12/09) peanut butter (Allergy, Mild, 11/12/09) Patient Home Medication List Clopidogrel Bisulfate (Clopidogrel) 75 Mg Tablet, 75 MG PO 1200, (Reported) Entered as Reported by: IVONE CERVANTES on 01/20/221003 Last Action: Reviewed Furosemide (Furosemide) 20 Mg Tablet, 20 MG PO DAILY, (Reported) Entered as Reported by: IVONE CERVANTES on 01/22/221124 Last Action: Reviewed Insulin Aspart (Novolog) 100 Unit/Ml Susp, UNITS SC PER PUMP, (Reported) Entered as Reported by: IVONE CERVANTES on 01/20/221003 Last Action: Reviewed Lisinopril (Lisinopril) 30 Mg Tablet, 30 MG PO 1200, (Reported) Entered as Reported by: IVONE CERVANTES on 01/20/221003 Last Action: Reviewed Metoprolol Succinate (Metoprolol Succinate) 25 Mg Tab.er.24h, 25 MG PO DAILY, (Reported) Entered as Reported by: IVONE CERVANTES on 01/22/221124 Last Action: Reviewed Spironolactone (Spironolactone) 25 Mg Tablet, 25 MG PO Q48H, (Reported) Entered as Reported by: IVONE CERVANTES on 01/22/221124 Last Action: Reviewed Trolamine Salicylate (Aspercreme) 10 % Cream..g., 1 APPLIC TP UD PRN for PAIN- BREAKTHROUGH, (Reported) Entered as Reported by: IVONE CERVANTES on 01/20/221003 Last Action: Reviewed Discontinued Medications Aspirin (Aspirin) 81 Mg Tablet, (Reported) Discontinued Reason: No Longer Taking Entered as Reported by: JULI GOMEZ on 03/03/08 0301 Clopidogrel (Plavix) 75 Mg Tablet, (Reported) Discontinued Reason: No Longer Taking Entered as Reported by: JULI GOMEZ on 03/03/08 0301 Furosemide (Furosemide) 20 Mg Tablet, 20 MG PO DAILY Discontinued Reason: Duplicate Order Prescribed by: PATRICK HAUSER on 01/21/22 1145 Last Action: Discontinued Insulin Aspart (Novolog) 10 Unit/0.1 Ml Vial, (Reported) Discontinued Reason: No Longer Taking Entered as Reported by: BLAIR GAO on 04/20/07 1034 Lisinopril (Zestrtil 20 Mg) 20 Mg Tablet, (Reported) Discontinued Reason: No Longer Taking Entered as Reported by: JULI GOMEZ on 03/03/08 0301 Metoprolol Succinate (Metoprolol Succinate) 25 Mg Tab.er.24h, 25 MG PO DAILY Discontinued Reason: Duplicate Order Prescribed by: PATRICK HAUSER on 01/21/22 1145 Last Action: Discontinued Spironolactone (Aldactone) 25 Mg Tablet, 25 MG PO Every other day Discontinued Reason: Duplicate Order Prescribed by: RITIKA AYALA on 01/21/22 1452 Last Action: Discontinued Physical Exam-Cardiology Physical Exam Vital Signs/I&O 01/22/22 01/22/22 01/22/22 01/22/22 21:00 22:00 22:00 23:00 Pulse 108 99 129 Resp 20 20 16 B/P (MAP) 119/50 88/60 96/46 Pulse Ox 99 96 98 98 O2 Delivery Nasal Cannula Nasal Cannula Nasal Cannula Nasal Cannula O2 Flow Rate 3.00 3.00 1.00 3.00 01/23/22 01/23/22 01/23/22 01/23/22 00:00 00:00 01:00 01:00 Pulse 99 100 110 Resp 26 B/P (MAP) 90/40 89/59 Pulse Ox 95 96 O2 Delivery Nasal Cannula Nasal Cannula Nasal Cannula O2 Flow Rate 3.00 3.00 3.00 01/23/22 01/23/22 01/23/22 01/23/22 02:00 03:00 03:00 04:00 Pulse 105 97 105 Resp 16 B/P (MAP) 88/46 86/48 126/63 Pulse Ox 91 95 96 95 O2 Delivery Nasal Cannula Room Air Nasal Cannula Nasal Cannula O2 Flow Rate 3.00 2.00 2.00 01/23/22 01/23/22 01/23/22 01/23/22 04:00 04:00 05:00 06:00 Temp 36.8 Pulse 96 99 Resp 18 B/P (MAP) 108/62 116/52 Pulse Ox 92 99 O2 Delivery Nasal Cannula Nasal Cannula Nasal Cannula O2 Flow Rate 3.00 2.00 2.00 01/23/22 01/23/22 01/23/22 07:00 07:24 07:43 Temp 36.6 Pulse 101 Pulse Ox 97 O2 Delivery Nasal Cannula O2 Flow Rate 2.00 01/23/22 00:00 Intake Total 870 ml Output Total 975 ml Balance -105 ml Capillary Refill : Less Than 3 Seconds Constitutional: AAO x 3, well-developed, well-nourished HEENT: PERRL, hearing is well preserved, oral hygience is good Neck: No carotid bruit; carotid pulses are 2 + bilaterally Respiratory: No accessory muscle use, No respiratory distress; chest expansion is symmetric, chest is bilaterally symmetric, rhonchi (scattered), other (coarse breathsounds, diminished bases bilat) Cardiovascular: No JVD; S1 and S2, systolic murmur Gastrointestinal: No tender; soft, round, audible bowel sounds Extremities: other (mod bilat ankle swelling) Neurologic/Psychiatric: grossly intact (moves all extremities) Skin: No rash on exposed areas, No ulcerations on exposed areas Data Review Labs Laboratory Tests 01/22/22 16:06: Sodium Level 126L, Potassium Level 4.3, Chloride Level 90L, Carbon Dioxide Level 20L, Anion Gap 16H, Blood Urea Nitrogen 38H, Creatinine 1.45H, Estimat Glomerular Filtration Rate 39, BUN/Creatinine Ratio 26, Glucose Level 310H, Calcium Level 9.0, Phosphorus Level 4.2, Magnesium Level 2.1, Beta- Hydroxybutyrate (Chem panel) 0.21 01/22/22 20:47: Glucometer 410*H 01/22/22 22:15: Sodium Level 124*L, Potassium Level 4.3, Chloride Level 89L, Carbon Dioxide Level 19L, Anion Gap 16H, Blood Urea Nitrogen 46H, Creatinine 1.62H, Estimat Glomerular Filtration Rate 34, BUN/Creatinine Ratio 28, Glucose Level 400H, Calcium Level 8.6, Albumin 3.7 01/23/22 04:10: Sodium Level 129L, Potassium Level 4.0, Chloride Level 92L, Carbon Dioxide Level 20L, Anion Gap 17H, Blood Urea Nitrogen 49H, Creatinine 1.36H, Estimat Glome rular Filtration Rate 42, BUN/Creatinine Ratio 36, Glucose Level 219H, Calcium Level 8.6, Phosphorus Level 5.2H, Magnesium Level 2.2, Albumin 3.6, White Blood Count 20.3H, Red Blood Count 3.81, Hemoglobin 10.8L, Hematocrit 31L, Mean Corpuscular Volume 81, Mean Corpuscular Hemoglobin 28, Mean Corpuscular Hemoglobin Concent 35, Red Cell Distribution Width 13.3, Platelet Count 186, Mean Platelet Volume 12.6H, Immature Granulocyte % (Auto) 1, Neutrophils (%) (Auto) 86H, Lymphocytes (%) (Auto) 7L, Monocytes (%) (Auto) 7, Eosinophils (%) (Auto) 0, Basophils (%) (Auto) 0, Neutrophils # (Auto) 17.5H, Lymphocytes # (Auto) 1.3, Monocytes # (Auto) 1.4H, Eosinophils # (Auto) 0.0, Basophils # (Auto) 0.0, Immature Granulocyte # (Auto) 0.1, Neutrophils % (Manual) 89, Lymphocytes % (Manual) 7, Monocytes % (Manual) 4, Eosinophils % (Manual) 0, Basophils % (Manual) 0, Band Neutrophils 0, Toxic Granulation 1+, Polychromasia SLIGHT, Anisocytosis SLIGHT, Target Cells SLIGHT, Corrected Calcium 8.9, Total Bilirubin 0.6, Aspartate Amino Transf (AST/SGOT) 31, Alanine Aminotransferase (ALT/SGPT) 49, Alkaline Phosphatase 139H, Total Protein 6.7 01/23/22 06:15: Radiology NAME: RAUDEL VELÁZQUEZ MED REC#: [id number] PT STATUS: ADM IN : 1955 PHYSICIAN: LEXIE HUNTER DO ADMIT DATE: 01/22/22/ICU Signed Date of Exam:01/21/22 CHEST 1 VIEW, AP/PA ONLY INDICATION: Dyspnea. Comparison with 01/20/2022. FINDINGS: The lungs are well-aerated. The bilateral infiltrates noted previously remain present or slightly less dense today. These are more prominent in the lung bases. The heart is not enlarged. No pneumothorax or pleural effusion. IMPRESSION: 1. Continued bilateral infiltrates though overall appearance has improved slightly since previous exam. Dictated by: Dictated on workstation # [id number] Dict: 01/22/2208 Trans: 01/22/22827 PHAN [id number] Interpreted by: VERÓNICA PECK MD Electronically signed by: VERÓNICA PECK MD 01/22/22827 ECG Impression ECG Initial ECG Rhythm: S.Tach A/P-Cardiology Assessment/Admission Diagnosis Acute on chronic systolic CHF - Echo of 01/21/22: LVEF 40-45%, grade 2 diastolic dysfunction, mod MR, PASP 20- 25 mmHg Minimal troponin elevation - likely Type 2 MO secondary to acute decompensated CHF with hypoxia Sinus tachycardia - likely secondary to hypoxia Hyponatremia - unclear etiology - possibly secondary to CHF Leukocytosis and sinus tach - managed by Dr Hauser of the Hospitalist service H/O TIA vs CVA per pt report - details unknown H/O left-sided carotid dz per pt report - followed by Mariah Smith HTN HLD - intolerant to statins per pt report IDDM - insulin pump Discussion and Recomendations Acute on chronic systolic CHF - treat with diuretics - start NEDA (-), BB, aldactone - D/C IVF Monitor lab closely - replace electrolytes as indicated D/C NTP Further recs will be based on her hospital course We would like to thank medical services for this consult VIRGINIA MUNOZ Jan 22, 2022 08:39
[2022-01-22] MEDS ORDERED: KCL 10 MEQ TAB (MICRO K) PO SCH (09:00)
[2022-01-22] MEDS ORDERED: lisINopril 10 MG (PRINIVIL) TABLET PO SCH (09:00)
[2022-01-22] MEDS ORDERED: SPIRONOLACTONE 25 MG (ALDACTONE) TAB PO SCH (09:00)
--- NOTE | 2022-01-22 09:22 | Consultation-Cardiology ---
HPI-Cardiology Cardiology Consultation: Date of Consultation 01/22/22 Time Seen by a Provider: 09:00 Date of Admission Attending Physician Delores Ramirez DO Admitting Physician Roosevelt Delgadillo DO Consulting Physician CARLOS POZO MD, MA, FACP, FACC, FSCAI, CCDS HPI: Chief Complaint: Acute on chronic systolic CHF Ms. Pritchard is a 66 yr old female discharged yesterday from this hospital. She returned to the ED last night d/t increasing SOB with orthopnea. She reports she felt well at the time of discharge and had not SOB. She reports she went home and ate chicken wings and fries. She reports she began to feel heaviness in her chest after eating. She reports one episode of diarrhea, attributing it to the Miralax she was given yesterday. She states she began to have bilat LE ankle swelling. She reports she generally felt unwell. She states she tried to lay down in bed, but was unable to d/t SOB so she returned to the ED. She reports her SOB is improved, but not back to baseline. No c/o CP or palpitations. No c/o syncope or near syncope Review of Systems-Cardiology Review of Systems Constitutional: No chills, No fever, No lightheadedness Eyes: No vision change Ears/Nose/Throat: No epistaxis Respiratory: As described under HPI Cardiovascular: As described under HPI Gastrointestinal: As described under HPI Genitourinary: No dysuria, No hematuria Musculoskeletal: no symptoms reported Skin: No rash on exposed areas, No ulcerations on exposed areas Psychiatric/Neurological: anxiety; No seizure, No focal weakness, No syncope Hematologic: No bleeding abnormalities QHK-Uijxcg-Zroukk Hx Patient Social History Smoking Status: Current Everyday Smoker Have you traveled recently?: No Alcohol Use?: No Pt feels they are or have been: No Tobacco type used: Cigarettes Past Medical History PMH As described under Assessment. Family Medical History Family Medical History: She reports her mother had h/o CAD with [place]. Allergies and Home Medications Allergies Coded Allergies: Sulfa (Sulfonamide Antibiotics) (Verified Allergy, Unknown, 04/20/07) doxycycline (Verified Allergy, Unknown, 03/02/08) latex (Verified Allergy, Unknown, 04/20/07) peanut (Unverified Allergy, Unknown, 01/21/22) Uncoded Allergies: multiple antibiotics (Allergy, Mild, 11/12/09) peanut butter (Allergy, Mild, 11/12/09) Patient Home Medication List Home Medication List Reviewed: Yes Clopidogrel Bisulfate (Clopidogrel) 75 Mg Tablet, 75 MG PO 1200, (Reported) Entered as Reported by: IVONE CERVANTES on 01/20/22 1004 Furosemide (Furosemide) 20 Mg Tablet, 20 MG PO DAILY Prescribed by: PATRICK HAUSER on 01/21/22 1145 Insulin Aspart (Novolog) 100 Unit/Ml Susp, UNITS SC PER PUMP, (Reported) Entered as Reported by: IVONE CERVANTES on 01/20/22 1004 Lisinopril (Lisinopril) 30 Mg Tablet, 30 MG PO 1200, (Reported) Entered as Reported by: IVONE CERVANTES on 01/20/22 1004 Metoprolol Succinate (Metoprolol Succinate) 25 Mg Tab.er.24h, 25 MG PO DAILY Prescribed by: PATRICK HAUSER on 01/21/22 1145 Spironolactone (Aldactone) 25 Mg Tablet, 25 MG PO Every other day Prescribed by: RITIKA AYALA on 01/21/22 1452 Trolamine Salicylate (Aspercreme) 10 % Cream..g., 1 APPLIC TP UD PRN for PAIN- BREAKTHROUGH, (Reported) Entered as Reported by: IVONE CERVANTES on 01/20/22 1004 Discontinued Medications Aspirin (Aspirin) 81 Mg Tablet, (Reported) Discontinued Reason: No Longer Taking Entered as Reported by: JULI GOMEZ on 03/03/08 030 Clopidogrel (Plavix) 75 Mg Tablet, (Reported) Discontinued Reason: No Longer Taking Entered as Reported by: JULI GOMEZ on 03/03/08 030 Insulin Aspart (Novolog) 10 Unit/0.1 Ml Vial, (Reported) Discontinued Reason: No Longer Taking Entered as Reported by: BLAIR GAO on 04/20/07 1034 Lisinopril (Zestrtil 20 Mg) 20 Mg Tablet, (Reported) Discontinued Reason: No Longer Taking Entered as Reported by: JULI GOMEZ on 03/03/08 030 Physical Exam-Cardiology Physical Exam Vital Signs/I&O 01/21/22 01/21/22 01/22/22 01/22/22 23:05 23:05 00:16 03:02 Temp 36.6 Pulse 135 121 111 Resp 29 B/P (MAP) 187/93 (124) Pulse Ox 91 91 97 O2 Delivery Nasal Cannula Nasal Cannula O2 Flow Rate 2.00 2.00 35.00 01/22/22 01/22/22 01/22/22 01/22/22 03:03 03:05 03:05 04:00 Temp 36.5 Pulse 103 114 Resp 25 25 B/P (MAP) 160/85 133/74 Pulse Ox 100 100 O2 Delivery Nasal Cannula Nasal Cannula Nasal Cannula O2 Flow Rate 3.00 3.00 3.00 01/22/22 01/22/22 01/22/22 01/22/22 04:12 05:00 06:00 06:44 Pulse 130 106 103 Resp 30 16 B/P (MAP) 127/65 120/63 Pulse Ox 95 100 100 98 O2 Delivery Nasal Cannula Nasal Cannula Nasal Cannula O2 Flow Rate 3.00 3.00 3.00 01/22/22 01/22/22 01/22/22 01/22/22 07:00 07:00 07:40 08:00 Temp 36.6 Pulse 128 105 102 Resp 19 10 B/P (MAP) 116/73 108/64 Pulse Ox 98 96 O2 Delivery Nasal Cannula Nasal Cannula O2 Flow Rate 3.00 3.00 01/22/22 09:00 Pulse 101 Resp 15 B/P (MAP) 105/57 Pulse Ox 93 O2 Delivery Nasal Cannula O2 Flow Rate 3.00 Capillary Refill : Less Than 3 Seconds Constitutional: AAO x 3, well-developed, well-nourished HEENT: PERRL, hearing is well preserved, oral hygience is good Neck: No carotid bruit; carotid pulses are 2 + bilaterally Respiratory: No accessory muscle use, No respiratory distress; chest expansion is symmetric, chest is bilaterally symmetric, rhonchi (scattered), other (coarse breathsounds, diminished bases bilat) Cardiovascular: No JVD; S1 and S2, systolic murmur Gastrointestinal: No tender; soft, round, audible bowel sounds Extremities: other (mod bilat ankle swelling) Neurologic/Psychiatric: grossly intact (moves all extremities) Skin: No rash on exposed areas, No ulcerations on exposed areas Data Review Labs Laboratory Tests 01/22/22 00:05: White Blood Count 12.4H, Red Blood Count 4.22, Hemoglobin 11.9, Hematocrit 35, Mean Corpuscular Volume 83, Mean Corpuscular Hemoglobin 28, Mean Corpuscular Hemoglobin Concent 34, Red Cell Distribution Width 13.6, Platelet Count 210, Mean Platelet Volume 12.2, Immature Granulocyte % (Auto) 0, Neutrophils (%) (Auto) 74, Lymphocytes (%) (Auto) 16, Monocytes (%) (Auto) 8, Eosinophils (%) (Auto) 2, Basophils (%) (Auto) 1, Neutrophils # (Auto) 9.2H, Lymphocytes # (Auto) 1.9, Monocytes # (Auto) 1.0, Eosinophils # (Auto) 0.2, Basophils # (Auto) 0.1, Immature Granulocyte # (Auto) 0.0, Neutrophils % (Manual) 72, Lymphocytes % (Manual) 17, Monocytes % (Manual) 7, Eosinophils % (Manual) 1, Atypical Lymphocytes 3, Blood Morphology Comment NORMAL, Prothrombin Time 14.1, INR Comment 1.1, Activated Partial Thromboplast Time 42H, D-Dimer 1.89H, Sodium Level 124*L, Potassium Level 4.5, Chloride Level 91L, Carbon Dioxide Level 17L, Anion Gap 16H, Blood Urea Nitrogen 22H, Creatinine 1.08, Estimat Glomerular Filtration Rate 56, BUN/Creatinine Ratio 20, Glucose Level 166H, Calcium Level 9.1, Corrected Calcium 8.9, Magnesium Level 2.2, Total Bilirubin 0.8, Aspartate Amino Transf (AST/SGOT) 105H, Alanine Aminotransferase (ALT/SGPT) 88H, Alkaline Phosphatase 196H, Total Creatine Kinase 376H, Creatine Kinase MB 5.0, Myoglobin 164.1H, Troponin I 0.038H, B-Type Natriuretic Peptide 703.1H, Total Protein 7.8, Albumin 4.2, Serum Alcohol < 10 01/22/22 00:21: Urine Color YELLOW, Urine Clarity CLEAR, Urine pH 6.0, Urine Specific [place] 1.010L, Urine Protein NEGATIVE, Urine Glucose (UA) NEGATIVE, Urine Ketones NEGATIVE, Urine Nitrite NEGATIVE, Urine Bilirubin NEGATIVE, Urine Urobilinogen 0.2, Urine Leukocyte Esterase NEGATIVE, Urine RBC (Auto) TRACE-IH, Urine RBC 0- 2, Urine WBC 0-2, Urine Squamous Epithelial Cells 0-2, Urine Crystals NONE, Urine Bacteria NEGATIVE, Urine Casts NONE, Urine Mucus NEGATIVE, Urine Culture Indicated NO, Urine Opiates Screen NEGATIVE, Urine Oxycodone Screen NEGATIVE, Urine Methadone Screen NEGATIVE, Urine Propoxyphene Screen NEGATIVE, Urine Barbiturates Screen NEGATIVE, Ur Tricyclic Antidepressants Screen NEGATIVE, Urine Phencyclidine Screen NEGATIVE, Urine Amphetamines Screen NEGATIVE, Urine Methamphetamines Screen NEGATIVE, Urine Benzodiazepines Screen NEGATIVE, Urine Cocaine Screen NEGATIVE, Urine Cannabinoids Screen NEGATIVE 01/22/22 03:15: Glucometer 268H 01/22/22 04:00: White Blood Count 13.0H, Red Blood Count 4.03, Hemoglobin 11.4L, Hematocrit 33L, Mean Corpuscular Volume 82, Mean Corpuscular Hemoglobin 28, Mean Corpuscular Hemoglobin Concent 34, Red Cell Distribution Width 13.3, Platelet Count 186, Mean Platelet Volume 12.3H, Immature Granulocyte % (Auto) 0, Neutrophils (%) (Auto) 94H, Lymphocytes (%) (Auto) 4L, Monocytes (%) (Auto) 1, Eosinophils (%) (Auto) 0, Basophils (%) (Auto) 0, Neutrophils # (Auto) 12.2H, Lymphocytes # (Auto) 0.5L, Monocytes # (Auto) 0.1, Eosinophils # (Auto) 0.0, Basophils # (Auto) 0.0, Immature Granulocyte # (Auto) 0.1, Sodium Level 127L, Potassium Level 3.8, Chloride Level 91L, Carbon Dioxide Level 18L, Anion Gap 18H, Blood Urea Nitrogen 24H, Creatinine 1.08, Estimat Glomerular Filtration Rate 56, BUN/Creatinine Ratio 22, Glucose Level 240H, Calcium Level 8.9, Magnesium Level 1.9, Troponin I 0.039H, Phosphorus Level 3.7 01/22/22 05:00: Blood Gas Puncture Site LEFT RADIAL, Blood Gas Patient Temperature 36.9, Arterial Blood pH 7.45H, Arterial Blood Partial Pressure CO2 36, Arterial Blood Partial Pressure O2 113H, Arterial Blood HCO3 25, Arterial Blood Total CO2 25.8, Arterial Blood Oxygen Saturation 99, Arterial Blood Base Excess 1.0, Niraj Test POSITIVE, Blood Gas Ventilator Setting YES, Blood Gas Inspired Oxygen 16 A/P-Cardiology Assessment/Admission Diagnosis Acute on chronic systolic CHF - Echo of 01/21/22: LVEF 40-45%, grade 2 diastolic dysfunction, mod MR, PASP 20- 25 mmHg Minimal troponin elevation - likely Type 2 [place] secondary to acute decompensated CHF with hypoxia Sinus tachycardia - likely secondary to hypoxia Hyponatremia - unclear etiology - possibly secondary to CHF Leukocytosis and sinus tach - managed by Dr Hauser of the Hospitalist service H/O TIA vs CVA per pt report - details unknown H/O left-sided carotid dz per pt report - followed by Mariah Smith HTN HLD - intolerant to statins per pt report IDDM - insulin pump Discussion and Recomendations Acute on chronic systolic CHF - treat with diuretics - start NEDA (-), BB, aldactone - D/C IVF Monitor lab closely - replace electrolytes as indicated D/C NTP Further recs will be based on her hospital course We would like to thank medical services for this consult CARLOS POZO MD FACP FACC CCDS Jan 22, 2022 09:22
[2022-01-22] MEDS ORDERED: MTP25TSR PO (11:25)
[2022-01-22] MEDS ORDERED: SPIR25TA5 PO (11:25)
[2022-01-22] MEDS ORDERED: FURO20TA4 PO (11:25)
--- NOTE | 2022-01-22 12:06 | Progress Note ---
Standard Progress Note Progress Notes/Assess & Plan Date Seen by a Provider: Jan 22, 2022 Time Seen by a Provider: 12:04 Progress/Assessment & Plan TeleICU Reviewed previous charting, available diagnostics, pt video and d/w nursing on bedside rounds 67 yo woman admitted through ED 01/21 with acute respiratory distress- hx of cigarette abuse, HTN, IDDM ( on insulin pump)- treated acutely with lasix, NTG topically, IV steroids (decadron and methyprednisolone) and received enoxaparin. BiPAP was initiated and over the night she has responded to treatment respiratory-norris- conversant on NC at this time. Labs reviewed and shows that she has developed increased anion gap - urine ketones are negative. she is using the insulin pump for high glucoses. Have ordered repeat labs for 1600 today to monitor AG. CXR: IMPRESSION: 1. Continued bilateral infiltrates though overall appearance has improved slightly since previous exam. VQ scan just done- no interpretation yet. LVEF on recent ECHO reported 40-45%- mgmt. otherwise is as per cardiology consult. JULI RANGEL DO Jan 22, 2022 12:06
--- NOTE | 2022-01-22 12:27 | Diagnostic Imaging Report ---
HISTORY: Respiratory distress. COMPARISON: 01/21/2022 TECHNIQUE: Frontal view of the chest. FINDINGS: Lung volumes are normal. No consolidation is seen. There is mild central vascular congestion. Aeration is improved compared to the prior exam. The cardiac silhouette is stable in size. No pleural effusion or pneumothorax is seen. IMPRESSION: 1. Mild central vascular congestion. Aeration has improved compared to the prior exam. Dictated by: Dictated on workstation # [id number]
--- NOTE | 2022-01-22 13:07 | Diagnostic Imaging Report ---
INDICATION: Shortness of breath, respiratory failure. COMPARISON: None. RADIOPHARMACEUTICAL: 5.33 mCi technetium 99m MAA IV. FINDINGS: Perfusion only images were obtained. There is homogeneous distribution of tracer activity throughout both lungs. There is no defect to indicate a pulmonary embolism. IMPRESSION: Negative perfusion lung scan. Dictated by: Dictated on workstation # [id number]
[2022-01-22 16:19] LABS: POTASSIUM 4.3 MMOL/L (3.6-5.0)
[2022-01-22 16:25] LABS: CREATININE SERUM 1.45 MG/DL (0.60-1.30); PHOSPHORUS 4.2 MG/DL (2.3-4.7)
[2022-01-22 16:27] LABS: MAGNESIUM 2.1 MG/DL (1.6-2.4)
[2022-01-22] MEDS: FUROSEMIDE 40 MG/4 ML INJ (LASIX) IVP SCH (16:48)
[2022-01-22] MEDS ORDERED: ENOXAPARIN 80 MG/0.8 ML (LOVENOX) SYR SC SCH (18:00)
[2022-01-22] MEDS ORDERED: ENOXAPARIN 100 MG/1 ML (LOVENOX) SYR SC SCH (18:00)
[2022-01-22] MEDS ORDERED: ONDANSETRON 4 MG/2 ML (SDV) Z0FRAN IV PRN (20:30)
[2022-01-22] MEDS ORDERED: polyethylene glycoL POWDER 17 GM (MIRALAX) PACK PO PRN (20:30)
[2022-01-22] MEDS ORDERED: ANTACID SUSP 30 ML UDC (MYLANTA) PO PRN (20:30)
[2022-01-22] MEDS ORDERED: ONDANSETRON 4 MG (ZOFRAN) ORAL DISSOLVE TAB PO PRN (20:30)
[2022-01-22] MEDS ORDERED: diphenhydrAMINE 25 MG TAB (BENADRYL) PO PRN (20:30)
[2022-01-22] MEDS ORDERED: MELATONIN 3 MG TABLET PO PRN (20:30)
--- NOTE | 2022-01-22 20:32 | History & Physical-Hospitalist ---
History of Present Illness HPI/Chief Complaint Adriana Pritchard is a 66 year old female with PMH HTN, T1DM with insulin pump, history of TIA, HFpEF, who presented with shortness of breath. She was just discharged from the hospital yesterday after being admitted with similar symptoms. She was treated for acute diastolic heart failure and her symptoms had improved. She had not been requiring any supplemental oxygen at the time of discharge. She says that she went home and her daughter bought them chicken wings from [employer]. She began having worsening shortness of breath which was worsened by laying down. She denies chest pain. She thinks her legs were more swollen. Source: patient Exam Limitations: no limitations Date Seen 01/22/22 Time Seen by a Provider: 10:35 Attending Physician Delores Ramirez DO PCP Roosevelt Delgadillo DO Referring Physician Date of Admission Jan 22, 2022 at 01:40 Home Medications & Allergies Home Medications Reviewed patient Home Medication Reconciliation performed by pharmacy medication reconciliations robot technician and/or nursing. Patients Allergies have been reviewed. Allergies Allergies Coded Allergies Sulfa (Sulfonamide Antibiotics) (Verified Allergy, Unknown, 04/20/07) doxycycline (Verified Allergy, Unknown, 03/02/08) latex (Verified Allergy, Unknown, 04/20/07) peanut (Unverified Allergy, Unknown, 01/21/22) Uncoded Allergies multiple antibiotics ( Allergy, Mild, 11/12/09) peanut butter ( Allergy, Mild, 11/12/09) Past Vokovkb-Pgzvft-Uuytnk Hx Patient Social History Tobacco Use?: Yes Tobacco type used: Cigarettes Smoking Status: Current Everyday Smoker Smokeless Tobacco Frequency: Never a User Use of E-Cig and/or Vaping dev: No Substance use?: No Alcohol Use?: No Pt feels they are or have been: No Immunizations Up To Date First/Initial COVID19 Vaccinat: 2020 Second COVID19 Vaccination Farhan: 2020 Current Status Advance Directives: No Communicates: Verbally Primary Language: Trinidadian Preferred Spoken Language: Trinidadian Is interpretation needed?: No Implanted or Applied Medical D: Insulin pump Past Medical History Surgeries: Tubal Ligation High Cholesterol, Hypertension 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 oz. kg; 31.64 BMI Method: General Appearance: No Apparent Distress, Obese HEENT: PERRL/EOMI, Pharynx Normal Neck: Normal Inspection, Supple Respiratory: Lungs Clear, No Respiratory Distress Cardiovascular: Irregularly Irregular, Tachycardia Gastrointestinal: Normal Bowel Sounds, Non Tender, Soft Extremity: Normal Inspection, No Pedal Edema Neurologic/Psychiatric: Alert, Oriented x3, No Motor/Sensory Deficits Skin: Normal Color, Warm/Dry Results Results/Procedures Labs Laboratory Tests 01/22/22 00:05 01/22/22 04:00 01/22/22 16:06 01/22/22 22:15 01/23/22 04:10 Patient resulted labs reviewed. Imaging: Reviewed Imaging Report Assessment/Plan Admission Diagnosis Acute on chronic HFrEF Admission Status: Inpatient Order (span 2 midnights) Reason for Inpatient Admission: Respiratory failure Assessment and Plan Acute on chronic HFrEF Acute respiratory failure with hypoxia Elevated troponin Chest xray consistent with CHF Started on IV Lasix Oxygen requirement improved, now not requiring supplemental oxygen Echo showed EF 40-45% Cardiology consulted TeleICU consulted JV Hyponatremia Hold lisinopril and spironolactone Continue Lasix HTN Hold lisinopril and spironolactone Continue metoprolol T1DM Insulin pump History of TIA Plavix Obesity Clinically significant, no acute management needs DVT prophylaxis: Lovenox Diagnosis/Problems Diagnosis/Problems (1) Acute on chronic systolic heart failure Status: Acute (2) Acute respiratory failure with hypoxia Status: Acute (3) Hyponatremia Status: Acute (4) Elevated troponin Status: Acute (5) T1DM (type 1 diabetes mellitus) Status: Acute (6) HTN (hypertension) Status: Acute (7) Obesity Status: Chronic (8) History of TIA (transient ischemic attack) Status: Chronic PATRICK HAUSER MD Jan 22, 2022 20:32
--- NOTE | 2022-01-22 22:06 | Tele-ICU Progress Note ---
Subjective Date Seen by a Provider: Jan 22, 2022 Time Seen by a Provider: 22:03 Sepsis Event Evaluation Height, Weight, BMI Height: '" Weight: lbs. oz. kg; 31.64 BMI Method: Exam Exam Patient acknowledged, consented, and participated in this virtual visit which was conducted using real time audio/video Vital Signs Date Time Temp Pulse Resp B/P (MAP) Pulse Ox O2 Delivery O2 Flow Rate FiO2 01/22/22 19:28 36.6 01/22/22 19:00 101 01/22/22 18:59 98 Nasal Cannula 3.00 01/22/22 18:00 111 121/71 91 Nasal Cannula 3.00 01/22/22 17:00 103 39 118/86 96 Nasal Cannula 3.00 01/22/22 16:00 Nasal Cannula 3.00 01/22/22 16:00 105 24 117/89 94 Nasal Cannula 3.00 01/22/22 15:36 36.9 01/22/22 15:12 98 Nasal Cannula 3.00 01/22/22 15:00 103 17 104/62 97 Nasal Cannula 3.00 01/22/22 14:00 106 24 108/93 96 Nasal Cannula 3.00 01/22/22 13:00 100 34 111/92 96 Nasal Cannula 3.00 01/22/22 13:00 106 01/22/22 12:00 Nasal Cannula 3.00 01/22/22 12:00 104 119/71 97 Nasal Cannula 3.00 01/22/22 11:48 36.5 01/22/22 11:00 104 21 88/63 94 Nasal Cannula 3.00 01/22/22 10:13 98 Nasal Cannula 3.00 01/22/22 10:00 92 29 103/70 99 Nasal Cannula 3.00 01/22/22 09:00 101 15 105/57 93 Nasal Cannula 3.00 01/22/22 08:00 Nasal Cannula 3.00 01/22/22 08:00 102 10 108/64 96 Nasal Cannula 3.00 01/22/22 07:40 36.6 01/22/22 07:00 105 01/22/22 07:00 128 19 116/73 98 Nasal Cannula 3.00 01/22/22 06:44 98 Nasal Cannula 3.00 01/22/22 06:00 103 16 120/63 100 Nasal Cannula 3.00 01/22/22 05:00 106 30 127/65 100 Nasal Cannula 3.00 01/22/22 04:12 130 95 01/22/22 04:00 114 25 133/74 100 Nasal Cannula 3.00 01/22/22 03:05 Nasal Cannula 3.00 01/22/22 03:05 36.5 01/22/22 03:03 103 25 160/85 100 Nasal Cannula 3.00 01/22/22 03:02 111 01/22/22 00:16 121 97 35.00 01/21/22 23:05 91 Nasal Cannula 2.00 01/21/22 23:05 36.6 135 29 187/93 (124) 91 Nasal Cannula 2.00 I & O 01/22/22 07:00 Intake Total 100 ml Output Total 1450 ml Balance -1350 ml Height & Weight Height: '" Weight: lbs. oz. kg; 31.64 BMI Method: General Appearance: No Apparent Distress, Obese HEENT: PERRL/EOMI, Pharynx Normal Neck: Normal Inspection, Supple Respiratory: Lungs Clear, No Respiratory Distress Cardiovascular: Irregularly Irregular, Tachycardia Capillary Refill: Less Than 3 Seconds Peripheral Pulses: 1+ Dorsalis Pedis (R), 1+ Left Dors-Pedis (L) (See free text) Extremity: Normal Inspection, No Pedal Edema Neurologic/Psychiatric: Alert, Oriented x3, No Motor/Sensory Deficits Skin: Normal Color, Warm/Dry Results Lab Laboratory Tests 01/22/22 00:05 01/22/22 04:00 01/22/22 16:06 Assessment/Plan Assessment/Plan Hyperglycemia 410 -in the context of steroids usage -check bmp ro AG metabolic acidosis -acc in 1h -pt has Insulin pump- bolus self given/ may need to supplement. GRANT HERNANDEZ MD Jan 22, 2022 22:06
[2022-01-22 22:30] LABS: POTASSIUM 4.3 MMOL/L (3.6-5.0)
[2022-01-22 22:31] LABS: CALCIUM 8.6 MG/DL (8.5-10.1)
[2022-01-22 22:35] LABS: CREATININE SERUM 1.62 MG/DL (0.60-1.30)
[2022-01-23 01:21] LABS: ALBUMIN 3.7 GM/DL (3.2-4.5)
[2022-01-23] MEDS: RT-ALBUTEROL/IPRATROPIUM 3 ML (DUONEB) VIAL INH SCH ×6 (02:59→22:00)
[2022-01-23 04:29] LABS: BASOPHILS % (AUTO) 0 % (0-10); EOSINOPHILS % (AUTO) 0 % (0-10); HEMATOCRIT 31 % (35-52); HEMOGLOBIN 10.8 g/dL (11.5-16.0); LYMPHOCYTES # (AUTO) 1.3 10^3/uL (1.0-4.0); LYMPHOCYTES % (AUTO) 7 % (12-44); MEAN CORPUSCULAR HEMOGLOBIN 28 pg (25-34); MEAN CORPUSCULAR HGB CONC 35 g/dL (32-36); MEAN CORPUSCULAR VOLUME 81 fL (80-99); MEAN PLATELET VOLUME 12.6 fL (9.0-12.2); MONOCYTES # (AUTO) 1.4 10^3/uL (0.0-1.0); MONOCYTES % (AUTO) 7 % (0-12); NEUTROPHILS # (AUTO) 17.5 10^3/uL (1.8-7.8); NEUTROPHILS % (AUTO) 86 % (42-75); PLATELET COUNT 186 10^3/uL (130-400); WHITE BLOOD COUNT 20.3 10^3/uL (4.3-11.0)
[2022-01-23 04:54] LABS: ALBUMIN 3.6 GM/DL (3.2-4.5); BILIRUBIN,TOTAL 0.6 MG/DL (0.1-1.0); CALCIUM 8.6 MG/DL (8.5-10.1); CREATININE SERUM 1.36 MG/DL (0.60-1.30); MAGNESIUM 2.2 MG/DL (1.6-2.4); PHOSPHORUS 5.2 MG/DL (2.3-4.7); TOTAL PROTEIN 6.7 GM/DL (6.4-8.2)
[2022-01-23 04:56] LABS: ANISOCYTOSIS SLIGHT; BAND NEUTROPHILS 0 %; BASOPHILS % (MANUAL) 0 %; EOSINOPHILS % (MANUAL) 0 %; LYMPHOCYTES % (MANUAL) 7 %; MONOCYTES % (MANUAL) 4 %; NEUTROPHILS % (MANUAL) 89 %; POLYCHROMASIA SLIGHT; TARGET CELLS SLIGHT
[2022-01-23 04:57] LABS: TOXIC GRANULATION/VACUOLAZATIO 1+
[2022-01-23] MEDS: POTASSIUM CL 10MEQ/50ML IVPB 50 ML IV SCH (05:36)
[2022-01-23] MEDS: KCL 20 MEQ TAB (K-DUR) PO SCH (05:36)
[2022-01-23] MEDS: MAGNESIUM 1 GM/100 ML IVPB 100 ML IV SCH (05:36)
[2022-01-23] MEDS: inSUlin ASPART (NovoLOG) 1 UNIT/0.01 ML (CHARGE PER UNIT) SC SCH ×4 (05:36→21:04)
[2022-01-23] MEDS: FUROSEMIDE 40 MG/4 ML INJ (LASIX) IVP SCH ×2 (06:31→16:32)
[2022-01-23] MEDS: ENOXAPARIN 40 MG/0.4 ML (LOVENOX) SYR SC SCH (08:22)
[2022-01-23] MEDS: CLOPIDOGREL 75 MG (PLAVIX) TABLET PO SCH (08:22)
--- NOTE | 2022-01-23 08:24 | Diagnostic Imaging Report ---
INDICATION: Hypoxia COMPARISON: 01/22/2022 TECHNIQUE: Single radiograph of the chest dated 01/23/2022 FINDINGS: The cardiac silhouette is stable from the prior examination. No significant pulmonary vascular congestion. Improved aeration of the lungs without focal pulmonary opacity. No significant pleural effusion. No pneumothorax. No acute osseous abnormality. IMPRESSION: Improved aeration of the lungs without adverse change. Dictated by: Dictated on workstation # [id number]
--- NOTE | 2022-01-23 08:48 | Progress Note - Cardiology ---
Cardiology SOAP Progress Note Subjective: Sitting up in bed Feels SOB has improved, but not yet back to baseline No c/o CP or palpitations States she feels she is dehydrated so she has increased her fluid intake Objective: I&O/Vital Signs 01/24/22 01/24/22 01/24/22 01/24/22 01:00 04:00 07:00 07:19 Temp 36.6 Pulse 110 86 105 Resp 18 B/P (MAP) 112/69 (83) Pulse Ox 98 97 O2 Delivery Room Air Room Air 01/24/22 01/24/22 01/24/22 08:24 08:30 12:01 Temp 36.9 36.6 Pulse 100 74 Resp 18 18 B/P (MAP) 131/93 (106) 129/59 (82) Pulse Ox 92 97 O2 Delivery Room Air Room Air Room Air 01/24/22 00:00 Intake Total 760 ml Balance 760 ml Constitutional: AAO x 3, well-developed, well-nourished Respiratory: No accessory muscle use, No respiratory distress; chest expansion is symmetric, chest is bilaterally symmetric, other (diminished bases bilat; prolonged exp phase) Cardiovascular: No JVD; S1 and S2, systolic murmur Gastrointestional: No tender; soft, round, audible bowel sounds Extremities: no lower extremity edema bilateral Neurologic/Psychiatric: grossly intact (moves all extremities) Skin: No rash on exposed areas, No ulcerations on exposed areas Results/Procedures: Labs Laboratory Tests 01/23/22 15:26: Glucometer 245 01/23/22 20:03: Glucometer 245 01/24/22 05:20: White Blood Count 15.1H, Red Blood Count 3.76L, Hemoglobin 10.6L, Hematocrit 31L , Mean Corpuscular Volume 82, Mean Corpuscular Hemoglobin 28, Mean Corpuscular Hemoglobin Concent 35, Red Cell Distribution Width 13.6, Platelet Count 196, Mean Platelet Volume 12.9H, Immature Granulocyte % (Auto) 0, Neutrophils (%) (Auto) 64, Lymphocytes (%) (Auto) 29, Monocytes (%) (Auto) 7, Eosinophils (%) (Auto) 1, Basophils (%) (Auto) 0, Neutrophils # (Auto) 9.6H, Lymphocytes # ( Auto) 4.3H, Monocytes # (Auto) 1.0, Eosinophils # (Auto) 0.1, Basophils # (Auto) 0.1, Immature Granulocyte # (Auto) 0.1, Sodium Level 132L, Potassium Level 4.1, Chloride Level 96L, Carbon Dioxide Level 21, Anion Gap 15H, Blood Urea Nitrogen 41H, Creatinine 1.11, Estimat Glomerular Filtration Rate 54, BUN/Creatinine Ratio 37, Glucose Level 140H, Calcium Level 8.2L, Magnesium Level 2.3 01/24/22 10:59: Glucometer 209H Microbiology 01/22/22 MRSA Screen - Final, Complete MRSA not isolated A/P: Assessment: Acute on chronic systolic CHF - Echo of 01/21/22: LVEF 40-45%, grade 2 diastolic dysfunction, mod MR, PASP 20- 25 mmHg Minimal troponin elevation - likely Type 2 MO secondary to acute decompensated CHF with hypoxia Sinus tachycardia - likely secondary to hypoxia Hyponatremia - unclear etiology - possibly secondary to CHF Leukocytosis and sinus tach - managed by Dr Montiel of the Hospitalist service H/O TIA vs CVA per pt report - details unknown H/O left-sided carotid dz per pt report - followed by Mariah Smith HTN HLD - intolerant to statins per pt report IDDM - insulin pump Plan: Acute on chronic systolic CHF - treat with diuretics - resume NEDA (-) at lower dose - clinically improving Monitor lab closely - replace electrolytes as indicated Increase activity VIRGINIA MUNOZ Jan 23, 2022 08:48
[2022-01-23] MEDS: lisINopril 5 MG (PRINIVIL) TABLET PO SCH (09:30)
--- NOTE | 2022-01-23 10:05 | Tele-ICU Progress Note ---
Subjective Date Seen by a Provider: Jan 23, 2022 Time Seen by a Provider: 09:50 Subjective/Events-last exam This virtual visit was conducted using real time audio/video. Thank you for asking us to see this patient for respiratory insufficiency due to pulm edema/AECOPD. Recent events:Just discharged similar presentation. PE: VSS. O2 sat 100% on 2L NC HEENT: No obvious masses, adenopathy or JVD. Chest: clear to auscultation. Diminished. CV: RRR S1 S2 No murmur or added sounds. Abd: Non-tender. Bowel sounds Y. : Unremarkable. [place] Y. 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 No obvious focal findings. Extremities: I+ edema. Capillary refill < 3 seconds. Skin: unremarkable. Results: Elevated WCC 20.3, BUN 49, D-dimer 1.89, BG 218. Decreased Na 129. B.45/34/69 shortly after BiPAP begun.. CXR: Hyperinflated, congested. V/Q neg for PE. Available chart/ vitals / labs / images reviewed. Video assessment done using teleICU camera, rest of exam as per RN. A/P: Respiratory insufficiency: Continue present management with MARY Dean Monitor for increasing oxygenation needs and/or need for intubation. Critical Care: critically ill patient. Cont. Lasix, Brian.,Insulin pump, SSI. metop, plavix. Discussed with RN Brigitte and RT. Asked RN to reach out to eICU if any questions or concerns later. Time spent with patient/coordination of care with other health professionals (mins): 15 Sepsis Event Evaluation Height, Weight, BMI Height: '" Weight: lbs. oz. kg; 32.04 BMI Method: Exam Exam Patient acknowledged, consented, and participated in this virtual visit which was conducted using real time audio/video Vital Signs Date Time Temp Pulse Resp B/P (MAP) Pulse Ox O2 Delivery O2 Flow Rate FiO2 01/23/22 09:00 108 25 92/80 92 Room Air 01/23/22 08:00 Nasal Cannula 2.00 01/23/22 08:00 110 105/74 100 Nasal Cannula 2.00 01/23/22 07:43 36.6 01/23/22 07:24 97 Nasal Cannula 2.00 01/23/22 07:00 101 01/23/22 07:00 96 90/66 99 Nasal Cannula 2.00 01/23/22 06:00 99 18 116/52 99 Nasal Cannula 2.00 01/23/22 05:00 96 26 108/62 92 Nasal Cannula 2.00 01/23/22 04:00 36.8 01/23/22 04:00 Nasal Cannula 3.00 01/23/22 04:00 105 16 126/63 95 Nasal Cannula 2.00 01/23/22 03:00 97 22 86/48 96 Nasal Cannula 2.00 01/23/22 03:00 95 Room Air 01/23/22 02:00 105 27 88/46 91 Nasal Cannula 3.00 01/23/22 01:00 110 26 89/59 96 Nasal Cannula 3.00 01/23/22 01:00 100 01/23/22 00:00 Nasal Cannula 3.00 01/23/22 00:00 99 23 90/40 95 Nasal Cannula 3.00 01/22/22 23:00 129 16 96/46 98 Nasal Cannula 3.00 01/22/22 22:00 98 Nasal Cannula 1.00 01/22/22 22:00 99 20 88/60 96 Nasal Cannula 3.00 01/22/22 21:00 108 20 119/50 99 Nasal Cannula 3.00 01/22/22 20:00 Nasal Cannula 3.00 01/22/22 20:00 107 19 124/77 95 Nasal Cannula 3.00 01/22/22 19:28 36.6 01/22/22 19:00 101 01/22/22 19:00 101 20 122/66 98 Nasal Cannula 3.00 01/22/22 18:59 98 Nasal Cannula 3.00 01/22/22 18:00 111 121/71 91 Nasal Cannula 3.00 01/22/22 17:00 103 39 118/86 96 Nasal Cannula 3.00 01/22/22 16:00 Nasal Cannula 3.00 01/22/22 16:00 105 24 117/89 94 Nasal Cannula 3.00 01/22/22 15:36 36.9 01/22/22 15:12 98 Nasal Cannula 3.00 01/22/22 15:00 103 17 104/62 97 Nasal Cannula 3.00 01/22/22 14:00 106 24 108/93 96 Nasal Cannula 3.00 01/22/22 13:00 100 34 111/92 96 Nasal Cannula 3.00 01/22/22 13:00 106 01/22/22 12:00 Nasal Cannula 3.00 01/22/22 12:00 104 119/71 97 Nasal Cannula 3.00 01/22/22 11:48 36.5 01/22/22 11:00 104 21 88/63 94 Nasal Cannula 3.00 01/22/22 10:13 98 Nasal Cannula 3.00 I & O 01/23/22 07:00 Intake Total 1945 ml Output Total 2225 ml Balance -280 ml Height & Weight Height: '" Weight: lbs. oz. kg; 32.04 BMI Method: General Appearance: No Apparent Distress, Obese HEENT: PERRL/EOMI, Pharynx Normal Neck: Normal Inspection, Supple Respiratory: Lungs Clear, No Respiratory Distress Cardiovascular: Irregularly Irregular, Tachycardia Capillary Refill: Less Than 3 Seconds Peripheral Pulses: 1+ Dorsalis Pedis (R), 1+ Left Dors-Pedis (L) (See free text) Extremity: Normal Inspection, No Pedal Edema Neurologic/Psychiatric: Alert, Oriented x3, No Motor/Sensory Deficits Skin: Normal Color, Warm/Dry Results Lab Laboratory Tests 01/22/22 00:05 01/22/22 04:00 01/22/22 16:06 01/22/22 22:15 01/23/22 04:10 Assessment/Plan Assessment/Plan See free text Critical Care: Critically Ill Patient GABY GRIJALVA MD Jan 23, 2022 10:05
--- NOTE | 2022-01-23 10:39 | Physical Therapy Evaluation ---
PT Evaluation-General Medical Diagnosis Admission Date Jan 22, 2022 at 01:40 Medical Diagnosis: CHF/IDDM/respiratory failure Onset Date: Jan 22, 2022 Therapy Diagnosis Therapy Diagnosis: debility Precautions Precautions/Isolations: Fall Prevention, Standard Precautions Referral Physician: Wilber Reason for Referral: Evaluation/Treatment Medical History Pertinent Medical History: DM, Heart Failure, HTN, Smoking Additional Medical History flash pulmonary edema 01/20/22 Current History ER secondary to sudden onset SOA Reviewed History: Yes Social History Home: Single Level Current Living Status: Alone Prior Prior Level of Function SCALE: Activities may be completed with or without assistive devices. 2-Wkuuwfxtjp-eesxvyp completes the activity by him/herself with no assistance from a helper. 5-Set-up or Clean-up Assistance-helper sets up or cleans up; patient completes activity. [place] assists only prior to or following the activity. 4-Supervision or Touching Assistance-helper provides verbal cues and/or touching/steadying and/or contact guard assistance as patient completes activity. Assistance may be provided throughout the activity or intermittently. 3-Partial/Moderate Assistance-helper does LESS THAN HALF the effort. [place] lifts, holds or supports trunk or limbs, but provides less than half the effort. 2-Substantial/Maximal Assistance-helper does MORE THAN HALF the effort. [place] lifts or holds trunk or limbs and provides more than half the effort. 2-Bdmvzoinj-gvrggt does ALL the effort. Patient does none of the effort to complete the activity. Or, the assistance of 2 or more helpers is required for the patient to complete the activity. If activity was not attempted, code reason: 7-Patient Refused. 9-Not Applicable-not attempted and the patient did not perform the activity before the current illness, exacerbation or injury. 10-Not Attempted due to Environmental Limitations-(lack of equipment, weather restraints, etc.). 88-Not Attempted due to Medical Conditions or Safety Concerns. Bed Mobility: 6 Transfers (B,C,W/C): 6 Gait: 6 Stairs: 6 Indoor Mobility (Ambulation): Independent Stairs: Independent Prior Devices Use: None PT Evaluation-Current Subjective Patient is very agreeable to participate with PT. Patient states, "I'm about ready to bounce out of here." Objective Patient Orientation: Normal For Age Attachments: [place] Catheter ROM/Strength ROM Lower Extremities bilateral LE WFL Strength Lower Extremities /5 grossly bilateral LE Integumentary/Posture Bowel Incontinence: No Bladder Incontinence: [place] Cath Posture WFL Neuromuscular (Tone, Coordination, Reflexes) grossly intact Sensory Vision: Wears Glasses Hearing: Functional Transfers Lying to Sitting/Side of Bed(Q: 6 Sit to Stand (QC): 6 Chair/Bzo-vl-Igvvl Xfer(QC): 6 Gait Mode of Locomotion: Walk Anticipated Mode of Locomotion: Walk Walk 10 feet (QC): 6 Walk 50 ft with 2 Turns(QC): 6 Walk 150 ft (QC): 6 Distance: 500' Gait Assistive Device: None Comments/Gait Description safe and functional with no deviation Balance Sitting Static: Normal Sitting Dynamic: Normal Standing Static: Normal Standing Dynamic: Normal Picking up an Object (QC): 6 Assessment/Needs Patient is currently at independent OF with all gross motor skills and does not require skilled PT intervention. Rehab Potential: Fair PT Plan Treatment/Plan Treatment Plan: Discontinue PT, goals met Treatment Duration: Jan 23, 2022 Frequency: 1 time per week Estimated Hrs Per Day: .25 hour per day Patient and/or Family Agrees t: Yes Time/GCodes Time In: 1015 Time Out: 1032 Total Billed Treatment Time: 17 Total Billed Treatment 1 visit EVModC 17 min LINDA VARGAS PT Jan 23, 2022 10:39
--- NOTE | 2022-01-23 11:02 | Occupational Therapy Eval ---
OT Evaluation-General/PLF Medical Diagnosis Admission Date Jan 22, 2022 at 01:40 Medical Diagnosis: CHF/IDDM/respiratory failure Onset Date: Jan 22, 2022 Therapy Diagnosis Therapy Diagnosis: n/a Precautions Precautions/Isolations: Fall Prevention, Standard Precautions Referral Physician: Wilber Nolan Reason: Evaluation/Treatment Medical History Pertinent Medical History: DM, Heart Failure, HTN, Smoking Current History Pt arrived to ER due to sudden onset SOA. Found to have resp failure and CHF Per patient, she lives alone in a single story home. She was indep with adls and iadls prior to admission. She does not use an AD at baseline. Supportive family Reviewed History: Yes Social History Home: Single Level Current Living Status: Alone ADL-Prior Level of Function SCALE: Activities may be completed with or without assistive devices. 4-Xkogirhcql-anhbyqc completes the activity by him/herself with no assistance from a helper. 5-Set-up or Clean-up Assistance-helper sets up or cleans up; patient completes activity. [place] assists only prior to or following the activity. 4-Supervision or Touching Assistance-helper provides verbal cues and/or touching/steadying and/or contact guard assistance as patient completes activity. Assistance may be provided throughout the activity or intermittently. 3-Partial/Moderate Assistance-helper does LESS THAN HALF the effort. [place] lifts, holds or supports trunk or limbs, but provides less than half the effort. 2-Substantial/Maximal Assistance-helper does MORE THAN HALF the effort. [place] lifts or holds trunk or limbs and provides more than half the effort. 9-Pjnckgfav-imkcps does ALL the effort. Patient does none of the effort to complete the activity. Or, the assistance of 2 or more helpers is required for the patient to complete the activity. If activity was not attempted, code reason: 7-Patient Refused. 9-Not Applicable-not attempted and the patient did not perform the activity before the current illness, exacerbation or injury. 10-Not Attempted due to Environmental Limitations-(lack of equipment, weather restraints, etc.). 88-Not Attempted due to Medical Conditions or Safety Concerns. Self Care: Independent Functional Cognition: Independent Drive Self: Yes OT Current Status Subjective Pt denies pain, very agreeable to eval. Appearance Pt left sitting in chair, all needs within reach. FILENET P8 DEVELOPER in room. Mental Status/Objective Patient Orientation: Person, Place, Situation Attachments: IV, Telemetry Current Glasses/Contacts: Yes Hearing Aids: No Hand Dominance: Right Upper Extremity ROM WNL Upper Extremity Strength 4/5 throughout ADL-Treatment Eating (QC): 6 Upper Body Dressing (QC): 5 Lower Body Dressing (QC): 5 On/Off Footwear (QC): 6 Pt up ad lexis in ICU room at OT arrival, reports she is being transferred to room 418. Able to transfer in/out of w/c without assist. No unsteadiness observed, no AD used. Once arriving in room, pt denies need to use bathroom but agreeable to demonstrate toilet transfer. Able to complete transfer and clothing management independently. She demonstrates good flexibility to don/doff socks. Denies any self care concerns. No further OT services warranted at this time. Education OT Patient Education: Energy conservation, Purpose of tx/functional activities Teaching Recipient: Patient Teaching Methods: Discussion Response to Teaching: Verbalize Understanding, Return Demonstration OT Care Home Goals Pallet Stone Positioner Goals 1=Demonstrate adherence to instructed precautions during ADL tasks. 2=Patient will verbalize/demonstrate understanding of assistive devices/modifications for ADL. 3=Patient will improve strength/tolerance for activity to enable patient to perform ADL's. OT Education/Plan Problem List/Assessment Assessment: No Skilled OT Needs ID'd Discharge Recommendations Plan/Recommendations: Discontinue OT Treatment Plan/Plan of Care Treatment,Training & Education: Yes Patient would benefit from OT for education, treatment and training to promote independence in ADL's, mobility, safety and/or upper extremity function for ADL's. Plan of Care: ADL Retraining Treatment Duration: Jan 23, 2022 Frequency: 1 time per week Estimated Hrs Per Day: .25 hour per day Agreement: Yes Time/GCodes Start Time: 10:44 Stop Time: 10:58 Total Time Billed (hr/min): 14 Billed Treatment Time 1 visit Lurdes Youssef OT Jan 23, 2022 11:02
--- NOTE | 2022-01-23 13:11 | Progress Note - Cardiology ---
Cardiology SOAP Progress Note Subjective: No cp Shortness of breath much improved No palp or syncope No n/v/d Objective: I&O/Vital Signs 01/23/22 01/23/22 01/23/22 01/23/22 02:00 03:00 03:00 04:00 Pulse 105 97 105 Resp 22 16 B/P (MAP) 88/46 86/48 126/63 Pulse Ox 91 95 96 95 O2 Delivery Nasal Cannula Room Air Nasal Cannula Nasal Cannula O2 Flow Rate 3.00 2.00 2.00 01/23/22 01/23/22 01/23/22 01/23/22 04:00 04:00 05:00 06:00 Temp 36.8 Pulse 96 99 Resp 26 18 B/P (MAP) 108/62 116/52 Pulse Ox 92 99 O2 Delivery Nasal Cannula Nasal Cannula Nasal Cannula O2 Flow Rate 3.00 2.00 2.00 01/23/22 01/23/22 01/23/22 01/23/22 07:00 07:00 07:24 07:43 Temp 36.6 Pulse 96 101 B/P (MAP) 90/66 Pulse Ox 99 97 O2 Delivery Nasal Cannula Nasal Cannula O2 Flow Rate 2.00 2.00 01/23/22 01/23/22 01/23/22 01/23/22 08:00 08:00 09:00 10:41 Pulse 110 108 Resp 25 B/P (MAP) 105/74 92/80 Pulse Ox 100 92 96 O2 Delivery Nasal Cannula Nasal Cannula Room Air Room Air O2 Flow Rate 2.00 2.00 01/23/22 12:05 Temp 36.7 Pulse 69 Resp 24 B/P (MAP) 99/61 Pulse Ox 97 O2 Delivery Room Air 01/22/22 23:59 Intake Total 870 ml Output Total 975 ml Balance -105 ml Constitutional: AAO x 3, well-developed, well-nourished Respiratory: No accessory muscle use, No respiratory distress; chest expansion is symmetric, chest is bilaterally symmetric, other (diminished bases bilat; prolonged exp phase) Cardiovascular: No JVD; S1 and S2, systolic murmur Gastrointestional: No tender; soft, round, audible bowel sounds Extremities: no lower extremity edema bilateral Neurologic/Psychiatric: grossly intact (moves all extremities) Skin: No rash on exposed areas, No ulcerations on exposed areas Results/Procedures: Labs Laboratory Tests 01/22/22 16:06: Sodium Level 126L, Potassium Level 4.3, Chloride Level 90L, Carbon Dioxide Level 20L, Anion Gap 16H, Blood Urea Nitrogen 38H, Creatinine 1.45H, Estimat Glomerular Filtration Rate 39, BUN/Creatinine Ratio 26, Glucose Level 310H, Calcium Level 9.0, Phosphorus Level 4.2, Magnesium Level 2.1, Beta- Hydroxybutyrate (Chem panel) 0.21 01/22/22 20:47: Glucometer 410*H 01/22/22 22:15: Sodium Level 124*L, Potassium Level 4.3, Chloride Level 89L, Carbon Dioxide Level 19L, Anion Gap 16H, Blood Urea Nitrogen 46H, Creatinine 1.62H, Estimat Glomerular Filtration Rate 34, BUN/Creatinine Ratio 28, Glucose Level 400H, Calcium Level 8.6, Albumin 3.7 01/23/22 04:10: Sodium Level 129L, Potassium Level 4.0, Chloride Level 92L, Carbon Dioxide Level 20L, Anion Gap 17H, Blood Urea Nitrogen 49H, Creatinine 1.36H, Estimat Glomerular Filtration Rate 42, BUN/Creatinine Ratio 36, Glucose Level 219H, Calcium Level 8.6, Phosphorus Level 5.2H, Magnesium Level 2.2, Albumin 3.6, White Blood Count 20.3H, Red Blood Count 3.81, Hemoglobin 10.8L, Hematocrit 31L, Mean Corpuscular Volume 81, Mean Corpuscular Hemoglobin 28, Mean Corpuscular Hemoglobin Concent 35, Red Cell Distribution Width 13.3, Platelet Count 186, Mean Platelet Volume 12.6H, Immature Granulocyte % (Auto) 1, Neutrophils (%) (Auto) 86H, Lymphocytes (%) (Auto) 7L, Monocytes (%) (Auto) 7, Eosinophils (%) (Auto) 0, Basophils (%) (Auto) 0, Neutrophils # (Auto) 17.5H, Lymphocytes # (Auto) 1.3, Monocytes # (Auto) 1.4H, Eosinophils # (Auto) 0.0, Basophils # (Auto) 0.0, Immature Granulocyte # (Auto) 0.1, Neutrophils % (Manual) 89, Lymphocytes % (Manual) 7, Monocytes % (Manual) 4, Eosinophils % (Manual) 0, Basophils % (Manual) 0, Band Neutrophils 0, Toxic Granulation 1+, Polychromasia SLIGHT, Anisocytosis SLIGHT, Target Cells SLIGHT, Corrected Calcium 8.9, Total Bilirubin 0.6, Aspartate Amino Transf (AST/SGOT) 31, Alanine Aminotransferase (ALT/SGPT) 49, Alkaline Phosphatase 139H, Total Protein 6.7 01/23/22 06:15: 01/23/22 12:09: Glucometer 238H Microbiology 01/22/22 MRSA Screen - Final, Complete MRSA not isolated Laboratory Tests 01/22/22 00:05 01/22/22 04:00 01/22/22 16:06 01/22/22 22:15 01/23/22 04:10 A/P: Assessment: Acute on chronic systolic CHF - Echo of 01/21/22: LVEF 40-45%, grade 2 diastolic dysfunction, mod MR, PASP 20- 25 mmHg Minimal troponin elevation - likely Type 2 AR secondary to acute decompensated CHF with hypoxia Sinus tachycardia - likely secondary to hypoxia Hyponatremia - unclear etiology - possibly secondary to CHF Leukocytosis - managed by Dr Montiel of the Hospitalist service H/O TIA vs CVA per pt report - details unknown H/O left-sided carotid dz per pt report - followed by Mariah Smith HTN HLD - intolerant to statins per pt report IDDM - insulin pump Plan: Acute on chronic systolic CHF - treat with diuretics - resume NEDA (-) at lower dose - clinically improving Monitor lab closely - replace electrolytes as indicated Increase activity CARLOS POZO MD FACP [facility] Jan 23, 2022 13:11
[2022-01-23 16:00] VITALS: BP 123/58
--- NOTE | 2022-01-23 18:31 | Progress Note - Hospitalist ---
Subjective HPI/CC On Admission Date Seen by Provider: Jan 23, 2022 Time Seen by Provider: 09:30 Adriana Pritchard is a 66 year old female with PMH HTN, T1DM with insulin pump, history of TIA, HFpEF, who presented with shortness of breath. She was just discharged from the hospital yesterday after being admitted with similar symptoms. She was treated for acute diastolic heart failure and her symptoms had improved. She had not been requiring any supplemental oxygen at the time of discharge. She says that she went home and her daughter bought them chicken wings from [employer]. She began having worsening shortness of breath which was worsened by laying down. She denies chest pain. She thinks her legs were more swollen. Subjective/Events-last exam She is feeling better. She is not needing any oxygen. She wants to get up and move. She had high blood sugars last night and she thought her insulin pump might have become dislodged when she had an xray. She denies pain. She denies breathing trouble. Objective Exam Vital Signs Vital Signs Date Time Temp Pulse Resp B/P (MAP) Pulse Ox O2 Delivery O2 Flow Rate FiO2 01/23/22 16:00 36.0 111 20 123/58 (79) 97 Room Air 01/23/22 08:00 2.00 Capillary Refill : Less Than 3 Seconds General Appearance: No Apparent Distress, Obese Respiratory: Lungs Clear, No Respiratory Distress Cardiovascular: No Murmur, Irregularly Irregular Gastrointestinal: Normal Bowel Sounds, Non Tender, Soft Extremity: Normal Inspection, No Pedal Edema Neurologic/Psychiatric: Alert, Oriented x3, No Motor/Sensory Deficits, Normal Mood/Affect Skin: Normal Color, Warm/Dry Results/Procedures Lab Laboratory Tests 01/22/22 22:15 01/23/22 04:10 Patient resulted labs reviewed. Imaging: Reviewed Imaging Report Assessment/Plan Assessment and Plan Assess & Plan/Chief Complaint Acute on chronic HFrEF Acute respiratory failure with hypoxia Elevated troponin Continue Lasix Oxygen requirement improved, now not requiring supplemental oxygen Echo showed EF 40-45% Cardiology following JV Hyponatremia Hold lisinopril and spironolactone Continue Lasix Leukocytosis WBC increased Likely due to steroids received in ER No evidence of acute infection HTN Hold lisinopril and spironolactone Continue metoprolol T1DM High anion gap metabolic acidosis Insulin pump Beta hydroxybutyrate normal History of TIA Plavix Obesity Clinically significant, no acute management needs DVT prophylaxis: Lovenox Diagnosis/Problems Diagnosis/Problems (1) Acute on chronic systolic heart failure Status: Acute (2) Acute respiratory failure with hypoxia Status: Acute (3) Hyponatremia Status: Acute (4) Elevated troponin Status: Acute (5) T1DM (type 1 diabetes mellitus) Status: Acute (6) HTN (hypertension) Status: Acute (7) Obesity Status: Chronic (8) History of TIA (transient ischemic attack) Status: Chronic PATRICK HAUSER MD Jan 23, 2022 18:31
[2022-01-23 19:55] VITALS: BP 114/73
[2022-01-23] MEDS: ACETAMINOPHEN 325 MG TABLET PO PRN (21:38)
[2022-01-24] VITALS: BP 87/51
[2022-01-24] MEDS: RT-ALBUTEROL/IPRATROPIUM 3 ML (DUONEB) VIAL INH SCH ×3 (02:40→11:40)
[2022-01-24 04:00] VITALS: BP 112/69
[2022-01-24 05:52] LABS: BASOPHILS # (AUTO) 0.1 10^3/uL (0.0-0.1); BASOPHILS % (AUTO) 0 % (0-10); EOSINOPHILS # (AUTO) 0.1 10^3/uL (0.0-0.3); EOSINOPHILS % (AUTO) 1 % (0-10); HEMATOCRIT 31 % (35-52); HEMOGLOBIN 10.6 g/dL (11.5-16.0); LYMPHOCYTES # (AUTO) 4.3 10^3/uL (1.0-4.0); LYMPHOCYTES % (AUTO) 29 % (12-44); MEAN CORPUSCULAR HEMOGLOBIN 28 pg (25-34); MEAN CORPUSCULAR HGB CONC 35 g/dL (32-36); MEAN CORPUSCULAR VOLUME 82 fL (80-99); MEAN PLATELET VOLUME 12.9 fL (9.0-12.2); MONOCYTES % (AUTO) 7 % (0-12); NEUTROPHILS # (AUTO) 9.6 10^3/uL (1.8-7.8); NEUTROPHILS % (AUTO) 64 % (42-75); PLATELET COUNT 196 10^3/uL (130-400); WHITE BLOOD COUNT 15.1 10^3/uL (4.3-11.0)
[2022-01-24 06:14] LABS: POTASSIUM 4.1 MMOL/L (3.6-5.0)
[2022-01-24 06:16] LABS: CALCIUM 8.2 MG/DL (8.5-10.1)
[2022-01-24 06:20] LABS: CREATININE SERUM 1.11 MG/DL (0.60-1.30)
[2022-01-24 06:23] LABS: MAGNESIUM 2.3 MG/DL (1.6-2.4)
[2022-01-24] MEDS: FUROSEMIDE 40 MG/4 ML INJ (LASIX) IVP SCH (06:30)
[2022-01-24] MEDS: inSUlin ASPART (NovoLOG) 1 UNIT/0.01 ML (CHARGE PER UNIT) SC SCH ×2 (06:34→11:39)
[2022-01-24 08:24] VITALS: BP 131/93
[2022-01-24] MEDS: lisINopril 5 MG (PRINIVIL) TABLET PO SCH (09:29)
[2022-01-24] MEDS: CLOPIDOGREL 75 MG (PLAVIX) TABLET PO SCH (09:29)
[2022-01-24] MEDS: ENOXAPARIN 40 MG/0.4 ML (LOVENOX) SYR SC SCH (09:30)
--- NOTE | 2022-01-24 10:08 | Progress Note - Cardiology ---
Cardiology SOAP Progress Note Subjective: Sitting up in recliner at the bedside States she feels much better SOB has resolved Objective: I&O/Vital Signs 01/24/22 01/24/22 01/24/22 01/24/22 01:00 04:00 07:00 07:19 Temp 36.6 Pulse 110 86 105 Resp 18 B/P (MAP) 112/69 (83) Pulse Ox 98 97 O2 Delivery Room Air Room Air 01/24/22 01/24/22 01/24/22 08:24 08:30 12:01 Temp 36.9 36.6 Pulse 100 74 Resp 18 18 B/P (MAP) 131/93 (106) 129/59 (82) Pulse Ox 92 97 O2 Delivery Room Air Room Air Room Air 01/24/22 00:00 Intake Total 760 ml Balance 760 ml Constitutional: AAO x 3, well-developed, well-nourished Respiratory: No accessory muscle use, No respiratory distress; chest expansion is symmetric, chest is bilaterally symmetric, other (diminished bases bilat; prolonged exp phase) Cardiovascular: No JVD; S1 and S2, systolic murmur Gastrointestional: No tender; soft, round, audible bowel sounds Extremities: no lower extremity edema bilateral Neurologic/Psychiatric: grossly intact (moves all extremities) Skin: No rash on exposed areas, No ulcerations on exposed areas Results/Procedures: Labs Laboratory Tests 01/23/22 15:26: Glucometer 245 01/23/22 20:03: Glucometer [facility] 01/24/22 05:20: White Blood Count 15.1H, Red Blood Count 3.76L, Hemoglobin 10.6L, Hematocrit 31L , Mean Corpuscular Volume 82, Mean Corpuscular Hemoglobin 28, Mean Corpuscular Hemoglobin Concent 35, Red Cell Distribution Width 13.6, Platelet Count 196, Mean Platelet Volume 12.9H, Immature Granulocyte % (Auto) 0, Neutrophils (%) (Auto) 64, Lymphocytes (%) (Auto) 29, Monocytes (%) (Auto) 7, Eosinophils (%) (Auto) 1, Basophils (%) (Auto) 0, Neutrophils # (Auto) 9.6H, Lymphocytes # (Auto) 4.3H, Monocytes # (Auto) 1.0, Eosinophils # (Auto) 0.1, Basophils # (A uto) 0.1, Immature Granulocyte # (Auto) 0.1, Sodium Level 132L, Potassium Level 4.1, Chloride Level 96L, Carbon Dioxide Level 21, Anion Gap 15H, Blood Urea Nitrogen 41H, Creatinine 1.11, Estimat Glomerular Filtration Rate 54, BUN/Creatinine Ratio 37, Glucose Level 140H, Calcium Level 8.2L, Magnesium Level 2.3 01/24/22 10:59: Glucometer 209H Microbiology 01/22/22 MRSA Screen - Final, Complete MRSA not isolated A/P: Assessment: Acute on chronic systolic CHF - Echo of 01/21/22: LVEF 40-45%, grade 2 diastolic dysfunction, mod MR, PASP 20- 25 mmHg - clinically compensated Minimal troponin elevation - likely Type 2 TX secondary to acute decompensated CHF with hypoxia Sinus tachycardia - likely secondary to hypoxia - improving Hyponatremia - unclear etiology - possibly secondary to CHF - improving Leukocytosis - managed by Dr Montiel of the Hospitalist service H/O TIA vs CVA per pt report - details unknown H/O left-sided carotid dz per pt report - followed by Mariah Smith HTN HLD - intolerant to statins per pt report IDDM - insulin pump Plan: Acute on chronic systolic CHF - clinically compensated - continue diuretics - change to oral - resume NEDA (-) - change BB to coreg - add potassium supplement Monitor lab closely - replace electrolytes as indicated - lab prior to appointment We have addressed all of the above with her in detail and answered her questions Advise out patient f/u in 1 week with VIRGINIA Starkey Jan 24, 2022 10:08
[2022-01-24] MEDS ORDERED: FURO80TA83 PO (10:12)
[2022-01-24] MEDS ORDERED: LISI10TA25 PO (10:12)
[2022-01-24] MEDS ORDERED: CARV12.53 PO (10:12)
[2022-01-24] MEDS ORDERED: POTA10CA43 PO (10:12)
--- NOTE | 2022-01-24 11:50 | Progress Note - Cardiology ---
Cardiology SOAP Progress Note Subjective: No cp or palp or syncope or shortness of breath No n/v/d No swelling Feels better Objective: I&O/Vital Signs 01/24/22 01/24/22 01/24/22 01/24/22 00:00 01:00 04:00 07:00 Temp 36.0 36.6 Pulse 103 110 86 105 Resp 18 18 B/P (MAP) 87/51 (63) 112/69 (83) Pulse Ox 98 98 O2 Delivery Room Air Room Air 01/24/22 01/24/22 01/24/22 07:19 08:24 08:30 Temp 36.9 Pulse 100 Resp 18 B/P (MAP) 131/93 (106) Pulse Ox 97 92 O2 Delivery Room Air Room Air Room Air 01/24/22 00:00 Intake Total 760 ml Balance 760 ml Constitutional: AAO x 3, well-developed, well-nourished Respiratory: No accessory muscle use, No respiratory distress; chest expansion is symmetric, chest is bilaterally symmetric, other (diminished bases bilat; prolonged exp phase) Cardiovascular: No JVD; S1 and S2, systolic murmur Gastrointestional: No tender; soft, round, audible bowel sounds Extremities: no lower extremity edema bilateral Neurologic/Psychiatric: grossly intact (moves all extremities) Skin: No rash on exposed areas, No ulcerations on exposed areas Results/Procedures: Labs Laboratory Tests 01/23/22 12:09: Glucometer 238H 01/23/22 15:26: Glucometer 245H 01/23/22 20:03: Glucometer 245H 01/24/22 05:20: White Blood Count 15.1H, Red Blood Count 3.76L, Hemoglobin 10.6L, Hematocrit 31L , Mean Corpuscular Volume 82, Mean Corpuscular Hemoglobin 28, Mean Corpuscular Hemoglobin Concent 35, Red Cell Distribution Width 13.6, Platelet Count 196, Mean Platelet Volume 12.9H, Immature Granulocyte % (Auto) 0, Neutrophils (%) (Auto) 64, Lymphocytes (%) (Auto) 29, Monocytes (%) (Auto) 7, Eosinophils (%) (Auto) 1, Basophils (%) (Auto) 0, Neutrophils # (Auto) 9.6H, Lymphocytes # (Auto) 4.3H, Monocytes # (Auto) 1.0, Eosinophils # (Auto) 0.1, Basophils # (Auto) 0.1, Immature Granulocyte # (Auto) 0.1, Sodium Level 132L, Potassium Leve l 4.1, Chloride Level 96L, Carbon Dioxide Level 21, Anion Gap 15H, Blood Urea Nitrogen 41H, Creatinine 1.11, Estimat Glomerular Filtration Rate 54, BUN/Creatinine Ratio 37, Glucose Level 140H, Calcium Level 8.2L, Magnesium Level 2.3 01/24/22 10:59: Glucometer 209H Microbiology 01/22/22 MRSA Screen - Final, Complete MRSA not isolated A/P: Assessment: Acute on chronic systolic CHF - Echo of 01/21/22: LVEF 40-45%, grade 2 diastolic dysfunction, mod MR, PASP 20- 25 mmHg - clinically compensated Minimal troponin elevation - likely Type 2 ID secondary to acute decompensated CHF with hypoxia Sinus tachycardia - likely secondary to hypoxia - improving Hyponatremia - unclear etiology - possibly secondary to CHF - improving Leukocytosis - managed by Dr Montiel of the Hospitalist service H/O TIA vs CVA per pt report - details unknown H/O left-sided carotid dz per pt report - followed by Mariah Smith HTN HLD - intolerant to statins per pt report IDDM - insulin pump Plan: Acute on chronic systolic CHF - clinically compensated - continue diuretics - change to oral - resume NEDA (-) - change BB to coreg - add potassium supplement Monitor lab closely - replace electrolytes as indicated - lab prior to appointment We have addressed all of the above with her in detail and answered her questions Advise out patient f/u in 1 week with us CARLOS POZO MD FACP [facility] Jan 24, 2022 11:50
[2022-01-24 12:01] VITALS: BP 129/59
--- NOTE | 2022-01-24 18:08 | Physician Query Clarification ---
Physician Query-General Query to Physician: The medical record reflects the following clinical scenario: The patient, in the setting of History/Risk factors, HTN, High cholesterol, DM, Smoker, Heart failure exacerbation Clinical Findings Admission labs: BNP Troponin 0.038 and 0.039, BNP 703, HR 135, RR 29, BP 187/93 SpO2 87% sat on 2 L T 36.6, Shortness of Breath Treatment Cardiology consultation, IV Lasix, Started NEDA, BB, Aldactone, Supplemental 02 2-3L Question: Do you agree with the impression of "Likely Type II WI secondary to acute decompensated CHF with hypoxia" per Dr. Cassy Bravo? 1. Yes; will document Likely Type II WI in the setting of acute decompensated CHF in the Progress Notes, present on admission 2. No; will continue current documentation in the Progress Notes 3. Other; will document explanation of clinical findings 4. Clinically undetermined; no explanation for clinical findings Please clarify and document your clinical opinion in the Progress Notes and Discharge Summary including the definitive and/or presumptive diagnosis, (suspected or probable), related to the above clinical findings. Please include clinical findings supporting your diagnosis. In responding to this query, please exercise your independent professional judgment. The purpose of this communication is to more accurately reflect the complexity of your patients condition. The fact that a question is asked does not imply that any particular answer is desired or expected. Please remember a lack of response to the above will prompt a phone page by CDI/coding staff Thank you for timely response to this clarification. Gabrielle Partida MSN, RN Clinical Business Banking Officer [phone] [email or web address] PHYSICIAN RESPONSE: Based on the clinical findings in the record, please respond to the query above on this document as an addendum. Physician Response: If you have questions please contact: Kinesiology Professor: Ext: Thank you for your time and cooperation. Clinical Business Banking Officer/Kinesiology Professor This is a permanent part of the medical record GABRIELLE PARTIDA Jan 24, 2022 18:08 YANET PEÑA January 27, 2022 12:02
--- NOTE | 2022-01-24 22:02 | Discharge Summary ---
Discharge Summary Hospital Course Problems/Dx: (1) Acute on chronic systolic heart failure Status: Acute (2) Acute respiratory failure with hypoxia Status: Acute (3) Hyponatremia Status: Acute (4) Elevated troponin Status: Acute (5) T1DM (type 1 diabetes mellitus) Status: Acute (6) HTN (hypertension) Status: Acute (7) Obesity Status: Chronic (8) History of TIA (transient ischemic attack) Status: Chronic Hospital Course Date of Admission: Jan 22, 2022 at 01:40 Admission Diagnosis : Family Physician/Provider: Roosevelt Delgadillo DO Date of Discharge: 01/24/22 Discharge Diagnosis: [ ] Hospital Course: [ ] Labs and Pending Lab Test: Laboratory Tests 01/24/22 05:20: White Blood Count 15.1H, Red Blood Count 3.76L, Hemoglobin 10.6L, Hematocrit 31L , Mean Corpuscular Volume 82, Mean Corpuscular Hemoglobin 28, Mean Corpuscular Hemoglobin Concent 35, Red Cell Distribution Width 13.6, Platelet Count 196, Mean Platelet Volume 12.9H, Immature Granulocyte % (Auto) 0, Neutrophils (%) (Auto) 64, Lymphocytes (%) (Auto) 29, Monocytes (%) (Auto) 7, Eosinophils (%) (Auto) 1, Basophils (%) (Auto) 0, Neutrophils # (Auto) 9.6H, Lymphocytes # (Auto) 4.3H, Monocytes # (Auto) 1.0, Eosinophils # (Auto) 0.1, Basophils # (Auto) 0.1, Immature Granulocyte # (Auto) 0.1, Sodium Level 132L, Potassium Level 4.1, Chloride Level 96L, Carbon Dioxide Level 21, Anion Gap 15H, Blood Urea Nitrogen 41H, Creatinine 1.11, Estimat Glomerular Filtration Rate 54, BUN/Creatinine Ratio 37, Glucose Level 140H, Calcium Level 8.2L, Magnesium Level 2.3 01/24/22 10:59: Glucometer 209H Microbiology 01/22/22 MRSA Screen - Final, Complete MRSA not isolated Home Meds Active Lisinopril 10 Mg Tablet 10 Mg PO DAILY Potassium Chloride 10 Meq Capsule.er 10 Meq PO DAILY Lasix (Furosemide) 80 Mg Tablet 80 Mg PO DAILY Carvedilol 12.5 Mg Tablet 12.5 Mg PO BID Reported Aspercreme (Trolamine Salicylate) 10 % Cream..g. 1 Applic TP UD PRN APPLIES TO AFFECTED FINGER(S) Novolog (Insulin Aspart) 100 Unit/Ml Susp Units SC PER PUMP Clopidogrel (Clopidogrel Bisulfate) 75 Mg Tablet 75 Mg PO 1200 Assessment/Pt Instructions See instructions Discharge Planning: >30 minutes discharge planning Discharge Instructions Discharge Diet: Low Sodium Diet Activity as Tolerated: Yes Consultations Cardiology Discharge Physical Examination Vital Signs Vital Signs Date Time Temp Pulse Resp B/P (MAP) Pulse Ox O2 Delivery O2 Flow Rate FiO2 01/24/22 12:53 97 01/24/22 12:01 36.6 18 129/59 (82) 97 Room Air 01/23/22 08:00 2.00 General Appearance: No Apparent Distress, Obese Respiratory: Lungs Clear, No Respiratory Distress Cardiovascular: Regular Rate, Rhythm, No Murmur Gastrointestinal: Normal Bowel Sounds, Soft Extremity: Normal Inspection, No Pedal Edema Skin: Normal Color, Warm/Dry Neurologic/Psychiatric: Alert, Oriented x3, No Motor/Sensory Deficits, Normal Mood/Affect Allergies: Coded Allergies: Sulfa (Sulfonamide Antibiotics) (Verified Allergy, Unknown, 04/20/07) doxycycline (Verified Allergy, Unknown, 03/02/08) latex (Verified Allergy, Unknown, 04/20/07) peanut (Unverified Allergy, Unknown, 01/21/22) Uncoded Allergies: multiple antibiotics (Allergy, Mild, 11/12/09) peanut butter (Allergy, Mild, 11/12/09) Discharge Summary Date of Admission Jan 22, 2022 at 01:40 Date of Discharge Jan 24, 2022 at 13:40 Discharge Date: Jan 24, 2022 Discharge Time: 13:40 Admission Diagnosis Acute on chronic HFrEF Consults/Procedures Consulations Cardiology Discharge Diagnosis Acute on chronic HFrEF Acute respiratory failure with hypoxia Elevated troponin JV Hyponatremia (1) Acute on chronic systolic heart failure Status: Acute (2) Acute respiratory failure with hypoxia Status: Acute (3) Hyponatremia Status: Acute (4) Elevated troponin Status: Acute (5) T1DM (type 1 diabetes mellitus) Status: Acute (6) HTN (hypertension) Status: Acute (7) Obesity Status: Chronic (8) History of TIA (transient ischemic attack) Status: Chronic PATRICK HAUSER MD Jan 24, 2022 21:48
== END 2022-01-24 13:40 | disposition home or self-care (01) ==
LOC: EDUNIT# 23:00 → ER 23:02 → EDLOC 01-22 01:40 → INTOOBSV 01-22 01:40 → ICU 01-22 01:40 → 4TH 01-23 10:50
PROVIDERS: ADMIT Internal Medicine; ATTEND Internal Medicine
DX: I11.0 Hypertensive heart disease with heart failure (principal); I50.23 Acute on chronic systolic (congestive) heart failure; J96.01 Acute respiratory failure with hypoxia; E87.1 Hypo-osmolality and hyponatremia; E10.65 Type 1 diabetes mellitus with hyperglycemia; F17.210 Nicotine dependence, cigarettes, uncomplicated; F41.9 Anxiety disorder, unspecified; R00.0 Tachycardia, unspecified; R77.8 Other specified abnormalities of plasma proteins; E78.5 Hyperlipidemia, unspecified; N17.9 Acute kidney failure, unspecified; E66.9 Obesity, unspecified; Z79.4 Long term (current) use of insulin; Z68.36 Body mass index [BMI] 36.0-36.9, adult; Z86.73 Personal history of transient ischemic attack (TIA), and cerebral infarction without residual deficits; Z88.2 Allergy status to sulfonamides; Z88.1 Allergy status to other antibiotic agents; Z91.040 Latex allergy status; Z91.010 Allergy to peanuts
CPT/HCPCS: 71045 ×3; 78580; 80048 ×2; 80053 ×2; 80306; 81000; 81002; 82010; 82040; 82550; 82553; 82805; 82947 ×3; 83735 ×3; 83874; 83880; 84100 ×2; 84300; 84484; 85007 ×2; 85025 ×2; 85027 ×2; 85379; 85610; 85730; 87081; 93005 ×2; 93041; 94640 ×3; 94760; 97162; 97165; 99291; A9540; G0480; 36415; 80320; 96360; 96361; 96372; 96374; 96375; 96376; G0378

== ENCOUNTER → 2022-01-27 | Outpatient (CLI) | payer MEDICARE, MEDICAID ==
[~2022-01-27] MED LIST changes: +CARV12.53 PO; +FURO80TA83 PO; +LISI10TA25 PO; +POTA10CA43 PO; +SPIR25TA5 PO
[2022-01-27 16:12] LABS: POTASSIUM 4.6 MMOL/L (3.6-5.0)
[2022-01-27 16:14] LABS: CALCIUM 8.2 MG/DL (8.5-10.1)
[2022-01-27 16:18] LABS: CREATININE SERUM 1.18 MG/DL (0.60-1.30)
[2022-01-27 16:20] LABS: MAGNESIUM 2.3 MG/DL (1.6-2.4)
== END ==
LOC: LABNPT 15:37
PROVIDERS: ATTEND Nurse Practitioner Family
DX: I50.22 Chronic systolic (congestive) heart failure (principal); I10 Essential (primary) hypertension; E78.2 Mixed hyperlipidemia; Z86.73 Personal history of transient ischemic attack (TIA), and cerebral infarction without residual deficits
CPT/HCPCS: 80048; 83735

== ENCOUNTER → 2022-02-25 | Outpatient (CLI) | payer MEDICARE, MEDICAID ==
[~2022-02-25] MED LIST changes: +CATHETER FLUSH 10 ML SYR IVP PRN; +REGADENOSON 0.4 MG/5 ML SYR (LEXISCAN) IV ONE
[2022-02-25 09:34] VITALS: BP 194/87
== END ==
LOC: CARD 07:25
PROVIDERS: ATTEND Internal Medicine Cardiovascular Disease
DX: I25.10 Atherosclerotic heart disease of native coronary artery without angina pectoris (principal)
CPT/HCPCS: 78452; 93017; A9502

== ENCOUNTER 2022-03-11 06:55 | Day surgery (SDC) | payer MEDICARE, MEDICAID ==
[~2022-03-11] VITALS: Ht 158.8 cm; Wt 77.6 kg
[~2022-03-11 06:55] MED LIST changes: -CATHETER FLUSH 10 ML SYR IVP PRN; -REGADENOSON 0.4 MG/5 ML SYR (LEXISCAN) IV ONE
[2022-03-11] MEDS ORDERED: NS IV 1000 ML 1,000 ML IV SCH (07:00)
[2022-03-11] MEDS ORDERED: HEParin (CATH LAB) 2,000 ML IV ONE (07:03)
[2022-03-11] MEDS ORDERED: NS IV 1000 ML 1,000 ML ONE (07:03)
[2022-03-11] MEDS ORDERED: LIDOCAINE 1% INJ 20 ML VIAL ONE (07:03)
[2022-03-11 07:17] VITALS: BP 112/58
[2022-03-11 07:28] LABS: HEMATOCRIT 34 % (35-52); HEMOGLOBIN 11.7 g/dL (11.5-16.0); MEAN CORPUSCULAR HEMOGLOBIN 28 pg (25-34); MEAN CORPUSCULAR HGB CONC 35 g/dL (32-36); MEAN CORPUSCULAR VOLUME 82 fL (80-99); MEAN PLATELET VOLUME 11.9 fL (9.0-12.2); PLATELET COUNT 228 10^3/uL (130-400); WHITE BLOOD COUNT 8.7 10^3/uL (4.3-11.0)
[2022-03-11 07:45] LABS: PROTHROMBIN TIME PATIENT 14.1 SEC (12.2-14.7)
[2022-03-11] MEDS ORDERED: POTA10TA37 PO (07:51)
[2022-03-11] MEDS ORDERED: FURO80TA3 PO (07:51)
[2022-03-11] MEDS ORDERED: CARV12.53 PO (07:51)
[2022-03-11] MEDS ORDERED: LISI10TA25 PO (07:51)
[2022-03-11 07:56] LABS: ALBUMIN 3.9 GM/DL (3.2-4.5); BILIRUBIN,TOTAL 0.8 MG/DL (0.1-1.0); CREATININE SERUM 1.26 MG/DL (0.60-1.30); POTASSIUM 4.4 MMOL/L (3.6-5.0); TOTAL PROTEIN 7.7 GM/DL (6.4-8.2)
[2022-03-11] MEDS ORDERED: MIDAZOLAM 5 MG/5 ML (VERSED) VIAL ONE (09:20)
[2022-03-11] MEDS ORDERED: fentaNYL INJ 100 MCG/2 ML AMP ONE (09:20)
[2022-03-11] MEDS ORDERED: HEParin 1000 UNIT/ML (10ML VIAL) FOR BOLUS ONE (10:19)
[2022-03-11] MEDS ORDERED: EPTIFIBATIDE BOLUS 20 ML IV ONE (10:20)
[2022-03-11] MEDS ORDERED: NITRO DRIP 25000 MCG/D5W 250 ML IV ONE (10:28)
[2022-03-11] MEDS ORDERED: ATROPINE INJECTION 1 MG/10 ML SYR (ABBOTT) ONE ×2 (10:38→13:14)
[2022-03-11] MEDS ORDERED: CLOPIDOGREL 300 MG (PLAVIX) TABLET PO ONE (10:55)
[2022-03-11] MEDS ORDERED: ASPIRIN 81 MG CHEW (CHILDREN'S ASA) ONE (10:55)
--- NOTE | 2022-03-11 11:32 | Cardiac Procedure Note-CS/ASA ---
Pre-Procedure Note Pre-Op Procedure Note H&P Reviewed The H&P was reviewed, patient examined and no changes noted. Date H&P Reviewed: Mar 11, 2022 Time H&P Reviewed: 10:00 Conscious Sedation Pre-Proced Time 10:00 ASA Score 3 For ASA 3 and 4: Consider anesthesia and medical clearance. Also, for patients with a history of failed moderate sedation consider anesthesia. Airway Lungs Heart ASA score ASA 1: a normal healthy patient ASA 2: a patient with a mild systemic disease (mid diabetes, controlled hypertension, obesity ASA 3: a patient with a severe systemic disease that limits activity (angina, COPD, prior Myocardial infarction) ASA 4: a patient with an incapacitating disease that is a constant threat to life (CHF, renal failure) ASA 5: a moribund patient not expected to survive 24 hrs. (ruptured aneurysm) ASA 6: a declared brain- patient whose organs are being harvested. For emergent operations, add the letter E after the classification Mallampati Classification Grade 2 Sedation Plan Analgesia, Amnesia, Plan communicated to team members, Discussed options with patient/fam, Discussed risks with patient/fam The patient is an appropriate candidate to undergo the planned procedure, sedation, and anesthesia. The patient immediately re-assessed prior to indication. CARLOS POZO MD FACP [facility] Mar 11, 2022 11:32
[2022-03-11] MEDS ORDERED: ACETAMINOPHEN 325 MG TABLET PO PRN (11:45)
[2022-03-11] MEDS ORDERED: PATIENT MAY USE OWN MEDS, ALL PO SCH (11:45)
[2022-03-11] MEDS ORDERED: inSUlin ASPART (NovoLOG) 1 UNIT/0.01 ML (CHARGE PER UNIT) SC SCH (11:45)
[2022-03-11] MEDS: NS IV 1000 ML 1,000 ML IV SCH ×2 (11:53→21:47)
[2022-03-11] MEDS ORDERED: CLOPIDOGREL 75 MG (PLAVIX) TABLET PO SCH (12:00)
--- NOTE | 2022-03-11 12:15 | Tele-ICU Progress Note ---
Progress Note (03/11) 66 y/o female s/p heart cath- no stents Video assessment done , Hemodynamically stable Available charting reviewed NO TELE-ICU CONSULT REQUESTED CONTINUE TO MONITOR PER USUAL TELE-ICU PROTOCOL No need for Tele-ICU interventions Plans as delineated by bedside physicians / consultants Focused Exam Height, Weight, BMI Height: '" Weight: lbs. oz. kg; 30.77 BMI Method: SHARA DENSON MD Mar 11, 2022 12:15
[2022-03-11] MEDS ORDERED: ATROPINE INJ 0.4 MG/ML SDV IV ONE (13:00)
--- NOTE | 2022-03-11 13:59 | CARDIAC CATHETERIZATION ---
DATE OF SERVICE: 03/11/2022 CARDIAC CATHETERIZATION AND CORONARY INTERVENTION REPORT The patient is a 66-year-old lady with multiple coronary artery disease risk factors who has been experiencing symptoms of exertional shortness of breath that are felt to be an angina equivalent. Myocardial perfusion imaging had indicated moderate inferolateral ischemia. Cardiac catheterization was carried out today after having obtained an informed consent for cardiac catheterization and possible ad hoc coronary intervention. PROCEDURE IN DETAIL: She was brought to the cardiac catheterization laboratory in a fasting state. Right groin was prepared and draped in the usual sterile fashion. Lidocaine 1% was used for local anesthesia. Modified Seldinger technique was used to advance a 5-Malaysian sheath in the right femoral artery, 5-Malaysian JL4 catheter was used for left coronary angiography, 5-Malaysian JR4 catheter for right coronary angiography, 5-Malaysian pigtail catheter was used for left heart catheterization. Left ventricular angiography was not performed. This was to conserve contrast. PERCUTANEOUS INTERVENTION OF THE RIGHT CORONARY: Following completion of the diagnostic procedure, we carried out percutaneous intervention to the right coronary artery. We exchanged the sheath over a wire for a 6-Malaysian sheath. We gave 5000 units of intravenous heparin. A double bolus of Integrilin was given during the procedure. We engaged the right coronary artery using a 6-Malaysian JR4 guide catheter with side holes. We advanced a BMW wire across the lesion and the tip of the wire was placed in the posterior descending branch of the right coronary. We carried out balloon angioplasty in the ostial, proximal and mid right coronary artery with a 2.0 x 30 mm balloon. Multiple balloon inflations were carried out. This reduced the stenosis from up to 90% to less than 20%. Flow throughout the vessel is normal. She tolerated the procedure well. Angioplasty equipment was removed. The sheath was sutured in place for manual sheath removal on the floor. She tolerated the procedure well. HEMODYNAMICS: Left ventricular end-diastolic pressure following coronary angiography was 15 mmHg. There is no significant pressure gradient on pullback across the aortic valve. Ascending aortic pressure was 115/57 with a mean 86 mmHg. CORONARY ANGIOGRAPHY: Left main coronary artery does not exhibit significant disease. Left anterior descending artery has 40% to 50% proximal and mid vessel stenosis. Left circumflex artery is nondominant. It has approximately 60% mid vessel stenosis. A sub-branch of the second obtuse marginal branch has 95% proximal stenosis. The first obtuse marginal branch has a diffuse moderate to moderately severe disease. The right coronary artery is dominant. It had a long lesion in its proximal and mid portions to which successful balloon angioplasty was carried out, which reduced stenoses of up to 90% to less than 20%. Flow throughout the vessel was normal. CONCLUSIONS: 1. Coronary artery disease consisting of a long up to 90% stenosis in the proximal and mid right coronary artery to which successful balloon angioplasty was carried out to reduce the stenosis to less than 20% residual. The left circumflex artery has 60% mid vessel stenosis and a 95% stenosis in the proximal portion of a sub-branch of the second obtuse marginal branch. The first obtuse marginal branch has diffuse moderate to moderately severe disease. The left anterior descending artery has 40% to 50% proximal and mid vessel stenosis. 2. Mildly elevated left ventricular end-diastolic pressure. DISCUSSION AND RECOMMENDATIONS: She has been advised to quit smoking immediately and completely. Dual antiplatelet therapy is being continued. Statin therapy and beta-adele therapy will be continued as tolerated. Job ID: [id number] DocumentID: [id number] Dictated Date: 03/11/2022 11:29:25 Security Support Analyst Date: 03/11/2022 13:58:06 Dictated By: CARLOS POZO MD, MA, FACP, FACC,
[2022-03-12 05:41] LABS: BASOPHILS # (AUTO) 0.1 10^3/uL (0.0-0.1); BASOPHILS % (AUTO) 1 % (0-10); EOSINOPHILS # (AUTO) 0.2 10^3/uL (0.0-0.3); EOSINOPHILS % (AUTO) 2 % (0-10); HEMATOCRIT 30 % (35-52); HEMOGLOBIN 10.1 g/dL (11.5-16.0); LYMPHOCYTES # (AUTO) 1.4 10^3/uL (1.0-4.0); LYMPHOCYTES % (AUTO) 18 % (12-44); MEAN CORPUSCULAR HEMOGLOBIN 28 pg (25-34); MEAN CORPUSCULAR HGB CONC 33 g/dL (32-36); MEAN CORPUSCULAR VOLUME 84 fL (80-99); MEAN PLATELET VOLUME 11.9 fL (9.0-12.2); MONOCYTES # (AUTO) 0.9 10^3/uL (0.0-1.0); MONOCYTES % (AUTO) 12 % (0-12); NEUTROPHILS # (AUTO) 5.1 10^3/uL (1.8-7.8); NEUTROPHILS % (AUTO) 67 % (42-75); PLATELET COUNT 196 10^3/uL (130-400); WHITE BLOOD COUNT 7.6 10^3/uL (4.3-11.0)
[2022-03-12 06:04] LABS: ALBUMIN 3.3 GM/DL (3.2-4.5)
[2022-03-12 06:05] LABS: POTASSIUM 4.1 MMOL/L (3.6-5.0)
[2022-03-12 06:06] LABS: CALCIUM 8.3 MG/DL (8.5-10.1)
[2022-03-12 06:07] LABS: TOTAL PROTEIN 6.4 GM/DL (6.4-8.2)
[2022-03-12 06:09] LABS: BILIRUBIN,TOTAL 0.5 MG/DL (0.1-1.0)
[2022-03-12 06:11] LABS: CREATININE SERUM 1.07 MG/DL (0.60-1.30)
--- NOTE | 2022-03-12 07:56 | Progress Note - Cardiology ---
Cardiology SOAP Progress Note Subjective: Sitting up in bed Wants to go home No c/o CP, SOB or groin discomfort Objective: I&O/Vital Signs Side: right Condition: DP/PT pulses palpable, extremity w/d/p Bruising: mild bruising Constitutional: AAO x 3, well-developed, well-nourished Respiratory: No accessory muscle use, No respiratory distress; rhonchi (scattered) Cardiovascular: regular rate-rhythm; No JVD; S1 and S2 Gastrointestional: No tender; soft, audible bowel sounds Extremities: no lower extremity edema bilateral Neurologic/Psychiatric: grossly intact (moves all extremities) Skin: No rash on exposed areas, No ulcerations on exposed areas Results/Procedures: Labs Microbiology 03/11/22 MRSA Screen - Final, Complete MRSA not isolated A/P: Assessment: CAD - Cardiac cath of 03-11-22: Coronary artery disease consisting of a long up to 90% stenosis in the proximal and mid right coronary artery to which successful balloon angioplasty was carried out to reduce the stenosis to less than 20% r esidual. The left circumflex artery has 60% mid vessel stenosis and a 95% stenosis in the proximal portion of a sub-branch of the second obtuse marginal branch. The first obtuse marginal branch has diffuse moderate to moderately severe disease. The left anterior descending artery has 40% to 50% proximal and mid vessel stenosis. Mildly elevated left ventricular end-diastolic pressure. Chronic systolic CHF - Echo of 01/21/22: LVEF 40-45%, grade 2 diastolic dysfunction, mod MR, PASP 20- 25 mmHg - clinically compensated Recent elevated troponin - likely Type 2 AK secondary to acute decompensated CHF with hypoxia at the time of hospitalization in late December 2021 -MPI of 02-25-22 showed a mod amt of inferolateral ischemia (SDS 8). No signif wall motion abnormality. LVEF 61% Sinus tachycardia - likely secondary to hypoxia - resolved Hyponatremia, mild - unclear etiology - possibly secondary to CHF - improving at time of hospital H/O TIA vs CVA per pt report - details unknown H/O left-sided carotid dz per pt report - followed by Mariah Smith HTN HLD - intolerant to statins per pt report IDDM - insulin pump Plan: S/P cardiac cath with successful coronary intervention on 03-11-22 OK to discharge home today Continue DAPT, statin and BB Advise out pt f/u in 1 week or sooner if needed VIRGINIA MUNOZ Mar 12, 2022 07:56
[2022-03-12] MEDS ORDERED: ASPI81TA64 PO (07:57)
[2022-03-12] MEDS ORDERED: ATOR40TA PO (07:57)
[2022-03-12] MEDS ORDERED: KCL 10 MEQ TAB (MICRO K) PO SCH (08:00)
[2022-03-12] MEDS: NS IV 1000 ML 1,000 ML IV SCH (08:55)
[2022-03-12] MEDS ORDERED: FUROSEMIDE 40 MG (LASIX) TAB PO SCH (09:00)
[2022-03-12] MEDS ORDERED: NON-FORMULARY MEDICATION 1 EA EA (Furosemide 80 MG) PO SCH (09:00)
[2022-03-12] MEDS ORDERED: ASPIRIN 81 MG CHEW (CHILDREN'S ASA) PO SCH (09:00)
[2022-03-12] MEDS ORDERED: lisINopril 10 MG (PRINIVIL) TABLET PO SCH (09:00)
[2022-03-12] MEDS ORDERED: NON-FORMULARY MEDICATION 1 EA EA (Potassium Chloride 10 MEQ) PO SCH (09:00)
--- NOTE | 2022-03-12 09:15 | Discharge Inst-Cardiology ---
Discharge Inst-Cardiac Discharge Medications New Medications: Aspirin (Children's Aspirin) 81 Mg Tab.chew 81 MG PO DAILY, #90 TAB 3 Refills Atorvastatin Calcium (Lipitor) 40 Mg Tablet 40 MG PO HS, #90 TAB 3 Refills Continued Medications: Carvedilol (Carvedilol) 12.5 Mg Tablet 6.25 MG PO BID, TAB TAKES 1/2 OF 12.5 MG Clopidogrel Bisulfate (Clopidogrel) 75 Mg Tablet 75 MG PO 1200, TAB Furosemide (Furosemide) 80 Mg Tablet 80 MG PO DAILY, TAB Insulin Aspart (Novolog) 100 Unit/Ml Susp UNITS SC PER PUMP, UNITS Lisinopril (Lisinopril) 10 Mg Tablet 5 MG PO DAILY, TAB TAKES 1/2 OF 10 MG TAB Potassium Chloride (Potassium Chloride) 10 Meq Tab.er.prt 10 MEQ PO DAILY Trolamine Salicylate (Aspercreme) 10 % Cream..g. 1 APPLIC TP UD PRN for PAIN-BREAKTHROUGH, TUBE APPLIES TO AFFECTED FINGER(S) New, Converted or Re-Newed RX: Transmitted to Pharmacy Patient Instructions Patient Instructions: Please schedule follow up appointment to see Dr. Bravo in 1 week Please have lab done prior to your appointment VIRGINIA MUNOZ Mar 12, 2022 09:15
[2022-03-12 10:23] VITALS: BP 102/54
--- NOTE | 2022-03-12 12:01 | Progress Note - Cardiology ---
Cardiology SOAP Progress Note Subjective: No cp or palp or syncope No shortness of breath No groin or leg discomfort or discoloration No difficulty in ambulation No n/v/d Objective: I&O/Vital Signs 03/12/22 03/12/22 03/12/22 03/12/22 00:04 01:00 01:00 02:00 Pulse 101 93 93 92 Resp 17 20 20 B/P (MAP) 136/56 140/65 146/68 Pulse Ox 92 92 93 O2 Delivery Room Air Room Air Room Air 03/12/22 03/12/22 03/12/22 03/12/22 03:00 04:00 04:00 05:00 Temp 37.0 Pulse 99 93 95 Resp 15 B/P (MAP) 141/68 153/88 158/76 Pulse Ox 92 89 96 O2 Delivery Room Air Room Air Room Air 03/12/22 03/12/22 03/12/22 03/12/22 06:07 07:00 07:00 07:53 Temp 37.0 Pulse 91 89 91 Resp 36 20 B/P (MAP) 138/70 Pulse Ox 94 96 O2 Delivery Room Air Room Air 03/12/22 03/12/22 03/12/22 03/12/22 08:00 08:10 09:00 10:23 Temp 37.0 Pulse 92 97 97 Resp B/P (MAP) 90/72 102/54 102/54 Pulse Ox 94 97 93 93 O2 Delivery Room Air Room Air Room Air Room Air 03/12/22 00:00 Intake Total 380 ml Output Total 550 ml Balance -170 ml Side: right Condition: DP/PT pulses palpable, extremity w/d/p Bruising: mild bruising Constitutional: AAO x 3, well-developed, well-nourished Respiratory: No accessory muscle use, No respiratory distress; rhonchi (scattered) Cardiovascular: regular rate-rhythm; No JVD; S1 and S2 Gastrointestional: No tender; soft, audible bowel sounds Extremities: no lower extremity edema bilateral Neurologic/Psychiatric: grossly intact (moves all extremities) Skin: No rash on exposed areas, No ulcerations on exposed areas Results/Procedures: Labs Laboratory Tests 03/11/22 14:50: Glucometer 203H 03/11/22 15:28: Glucometer 165H 03/11/22 17:51: Glucometer 178H 03/11/22 20:33: Glucometer 307H 03/12/22 03:40: Glucometer 261H 03/12/22 05:01: White Blood Count 7.6, Red Blood Count 3.61L, Hemoglobin 10.1L, Hematocrit 30L, Mean Corpuscular Volume 84, Mean Corpuscular Hemoglobin 28, Mean Corpuscular Hemoglobin Concent 33, Red Cell Distribution Width 13.3, Platelet Count 196, Mean Platelet Volume 11.9, Immature Granulocyte % (Auto) 0, Neutrophils (%) (Auto) 67, Lymphocytes (%) (Auto) 18, Monocytes (%) (Auto) 12, Eosinophils (%) (Auto) 2, Basophils (%) (Auto) 1, Neutrophils # (Auto) 5.1, Lymphocytes # (Auto) 1.4, Monocytes # (Auto) 0.9, Eosinophils # (Auto) 0.2, Basophils # (Auto) 0.1, Immature Granulocyte # (Auto) 0.0, Sodium Level 128L, Potassium Level 4.1, Chloride Level 101, Carbon Dioxide Level 19L, Anion Gap 8, Blood Urea Nitrogen 23H, Creatinine 1.07, Estimat Glomerular Filtration Rate 57, BUN/Creatinine Ratio 21, Glucose Level 218H, Calcium Level 8.3L, Corrected Calcium 8.9, Total Bilirubin 0.5, Aspartate Amino Transf (AST/SGOT) 17, Alanine Aminotransferase (ALT/SGPT) 15, Alkaline Phosphatase 98, Total Protein 6.4, Albumin 3.3 03/12/22 08:18: Glucometer 256H Microbiology 03/11/22 MRSA Screen - Final, Complete MRSA not isolated Laboratory Tests 03/11/22 07:16 03/12/22 05:01 A/P: Assessment: CAD - Cardiac cath of 03-11-22: Coronary artery disease consisting of a long up to 90% stenosis in the proximal and mid right coronary artery to which successful balloon angioplasty was carried out to reduce the stenosis to less than 20% residual. The left circumflex artery has 60% mid vessel stenosis and a 95% stenosis in the proximal portion of a sub-branch of the second obtuse marginal branch. The first obtuse marginal branch has diffuse moderate to moderately severe disease. The left anterior descending artery has 40% to 50% proximal and mid vessel stenosis. Mildly elevated left ventricular end-diastolic pressure. Chronic systolic CHF - Echo of 01/21/22: LVEF 40-45%, grade 2 diastolic dysfunction, mod MR, PASP 20- 25 mmHg - clinically compensated Recent elevated troponin - likely Type 2 CA secondary to acute decompensated CHF with hypoxia at the time of hospitalization in late December 2021 -MPI of 02-25-22 showed a mod amt of inferolateral ischemia (SDS 8). No signif wall motion abnormality. LVEF 61% Sinus tachycardia - likely secondary to hypoxia - resolved Hyponatremia, mild - unclear etiology - possibly secondary to CHF - improving at time of hospital H/O TIA vs CVA per pt report - details unknown H/O left-sided carotid dz per pt report - followed by Mariah Smith HTN HLD - intolerant to statins per pt report IDDM - insulin pump Plan: I again reviewed her cath findings, interventions undertaken, and treatment plan with her S/P cardiac cath with successful coronary intervention on 03-11-22 OK to discharge home today Continue DAPT, statin and BB Advised to refrain from smoking Advise out pt f/u in 1 week or sooner if needed CARLOS POZO MD FACP FACC [facility] Mar 12, 2022 12:01
== END 2022-03-12 10:11 | disposition home or self-care (01) ==
LOC: CATH 06:55 → ICU 11:25 → CATH 03-12 10:11
PROVIDERS: ATTEND Internal Medicine Cardiovascular Disease
DX: I25.10 Atherosclerotic heart disease of native coronary artery without angina pectoris (principal); Z87.891 Personal history of nicotine dependence; I11.0 Hypertensive heart disease with heart failure; I50.22 Chronic systolic (congestive) heart failure; E87.1 Hypo-osmolality and hyponatremia; Z86.73 Personal history of transient ischemic attack (TIA), and cerebral infarction without residual deficits; E78.5 Hyperlipidemia, unspecified; E11.9 Type 2 diabetes mellitus without complications; Z79.899 Other long term (current) drug therapy; Z79.4 Long term (current) use of insulin
CPT/HCPCS: 80053 ×2; 80061; 82947 ×2; 85025; 85027; 85610; 85730; 87081; 92920; 93005; 93458; C1725; C1769; C1887; C1894 ×2; 36415

== ENCOUNTER → 2023-03-09 | Outpatient (CLI) | payer MEDICARE, MEDICAID ==
[~2023-03-09] MED LIST changes: +ASPI81TA64 PO; +ATOR40TA PO; +FURO80TA3 PO; +POTA-177 PO; -POTA10CA43 PO; +POTA10CA44 PO
== END ==
LOC: CARD 12:54
PROVIDERS: ATTEND Nurse Practitioner Family
DX: I51.7 Cardiomegaly (principal); I34.0 Nonrheumatic mitral (valve) insufficiency; I50.22 Chronic systolic (congestive) heart failure
CPT/HCPCS: 93306